=== PATIENT | female | born 1960 | race Caucasian/White ===

== ENCOUNTER 2016-12-25 17:08 | Observation (INO) | payer MEDICAID, OTHER ==
[2016-12-25] MEDS ORDERED: Sodium Chloride 0.9% 2.5 ML Syringe FLUSH PRN (17:43)
[2016-12-25] MEDS ORDERED: Sodium Chloride 0.9% 10 ML Syringe FLUSH PRN (17:43)
--- NOTE | 2016-12-25 17:50 | EDM.PDOC ---
<Rocío Terry - Last Filed: 12/25/16 18:39> ED HPI GENERAL MEDICAL PROBLEM - General Chief Complaint: Respiratory Problem Stated Complaint: SORE THROAT Time Seen by Provider: 12/25/16 17:31 - History of Present Illness INITIAL COMMENTS - FREE TEXT/NARRATIVE: HISTORY AND PHYSICAL: History of present illness: The patient is a 56-year-old female with a history of hypertension kidney damage with only one functioning kidney and a craniotomy in April 2016 and July 2016 for aneurysms and subsequent seizure disorder who presents with daughter complains of painful swallowing difficulty swallowing and swollen anterior neck with shortness of breath that started yesterday. The patient has not had a fever and has had a cough productive of some phlegm. She doesn't have chest pain or abdominal pain no vomiting or diarrhea but she does state that she feels like she is gagging more often due to the difficulty with her swallowing. She has no headache or neck pain posteriorly but she does have anterior neck pain due to the swelling. She has no extremity complaints no weakness and no dizziness. Patient is compliant with her medications. The patient does not live here and she lives in [place] where all her care providers are but is here due to the family business with her daughter. The patient is able to drink water but feels like she has swelling of her secretions and difficulty with that swallow. There is no discomfort or issues with taking a deep breath in her chest she feels like she has issues with the upper airway. With her craniotomies in the past she has had a trach but has had no problems as a result of that scarring. Review of systems: As per history of present illness and below otherwise all systems reviewed and negative. Past medical history: As per history of present illness and as reviewed below otherwise noncontributory. Surgical history: As per history of present illness and as reviewed below otherwise noncontributory. Social history: No reported history of drug or alcohol abuse. Family history: As per history of present illness and as reviewed below otherwise noncontributory. Physical exam: Gen.: Well-developed well-nourished female who is nontoxic and speaks with slightly worse and muffled voice. She is nontoxic appearing and vital signs been noted by me. HEENT: Atraumatic, normocephalic, pupils reactive, negative for conjunctival pallor or scleral icterus, mucous membranes moist, throat clear, neck supple, nontender, trachea midline. There is a well-healed trach scar seen at the [place] of the neck. There is no evidence of any tongue edema lymphedema or mucosal or gum/tooth pain or swelling. She has visible swelling of the anterior neck which is circumferential and there is a small area that she remembers getting bitten by an insect on the right anterior neck which is nonfluctuant and not specifically swollen. There is some reddish discolored skin extending from this by across the anterior aspect of her neck but the swelling is bilateral and brawny appearing. The uvula is enlarged and hanging somewhat and bilateral posterior oropharyngeal areas have some edema but there is no asymmetry and there is no kissing of these crypts. Cervical adenopathy cannot be appreciated due to the swelling of the neck Lungs: Clear to auscultation with no worker breathing wheezing or stridor, breath sounds equal bilaterally, chest nontender. Heart: S1S2, regular rate and rhythm no overt murmurs Abdomen: Soft, nondistended, nontender. NABS Pelvis: Stable nontender. Genitourinary: Deferred. Rectal: Deferred. Extremities: Atraumatic, negative for cords or calf pain. Neurovascular unremarkable. Neuro: Awake, alert, oriented. Cranial nerves II through XII unremarkable. Cerebellum unremarkable. Motor and sensory unremarkable throughout. Exam nonfocal. Diagnostics: CBC CMP lactic acid chest x-ray CT scan of the soft tissue neck Therapeutics: IV O2 pulse ox I discussed with the patient and her daughter that she has only one functioning kidney and if she has had IV contrast in the past and she states that she has not had difficulties with that. She states that her one functioning kidney has good renal function. 190: Case was endorsed to Dr. Vicente to follow-up the chest x-ray and CT scan of the neck results and disposition the patient accordingly. Impression: Dysphasia/odontophagia, dyspnea Definitive disposition and diagnosis as appropriate pending reevaluation and review of above. Neck Pain Score (Numeric/FACES): 8 - Related Data Allergies Allergy/AdvReac Type Severity Reaction Status Date / Time atenolol Allergy Other Verified 12/25/16 19:20 Penicillins Allergy Cannot Verified 12/25/16 17:52 Remember Home Meds: Home Meds LORazepam 1 tab PO BID PRN 04/20/14 [History] Amitriptyline HCl 75 mg PO BEDTIME 12/25/16 [History] Docusate Sodium [Colace] 100 mg PO BID PRN 12/25/16 [History] Gabapentin [Neurontin] 600 mg PO QID 12/25/16 [History] Lisinopril 30 mg PO DAILY 12/25/16 [History] Rosuvastatin [Crestor] 10 mg PO BEDTIME 12/25/16 [History] amLODIPine Besylate [Amlodipine Besylate] 10 mg PO DAILY 12/25/16 [History] levETIRAcetam [Keppra] 500 mg PO BID 12/25/16 [History] Social & Family History - Tobacco Use Smoking Status *Q: Current Every Day Smoker Years of Tobacco use: 30 - Alcohol Use Days Per Week of Alcohol Use: 0 - Recreational Drug Use Recreational Drug Use: No ED ROS GENERAL - Review of Systems Review Of Systems: ROS reveals no pertinent complaints other than HPI. ED EXAM, GENERAL - Physical Exam Exam: See Below (See dictation) Course - Vital Signs Last Recorded V/S: Last Vital Signs Temp 36.8 C 12/25/16 17:48 Pulse 80 12/25/16 17:48 Resp 20 12/25/16 17:48 BP 157/95 H 12/25/16 17:48 Pulse Ox 100 12/25/16 17:48 - Orders/Labs/Meds Orders: Active Orders 24 hr Category Date Time Status Pulse Oximetry [RC] ASDIRECTED Care 12/25/16 17:43 Active Chest 2V [CR] Stat Exams 12/25/16 17:43 Taken Soft Tissue Neck w Cont [CT] Stat Exams 12/25/16 17:43 Taken Clindamycin Phosphate [Cleocin] 300 mg Med 12/25/16 20:23 Active Sodium Chloride 0.9% [Normal Saline] 50 ml IV ONETIME Sodium Chloride 0.9% [Saline Flush] Med 12/25/16 17:43 Active 10 ml FLUSH ASDIRECTED PRN Sodium Chloride 0.9% [Saline Flush] Med 12/25/16 17:43 Active 2.5 ml FLUSH ASDIRECTED PRN Saline Lock Insert [OM.PC] Stat Oth 12/25/16 17:43 Ordered Medication Orders Clindamycin Phosphate 300 mg/ (Sodium Chloride) 52 mls @ 100 mls/hr IV ONETIME ONE Stop: 12/25/16 20:54 Sodium Chloride (Saline Flush) 10 ml FLUSH ASDIRECTED PRN PRN Reason: Keep Vein Open Last Admin: 12/25/16 18:06 Dose: 10 ml Sodium Chloride (Saline Flush) 2.5 ml FLUSH ASDIRECTED PRN PRN Reason: Keep Vein Open Last Admin: 12/25/16 19:19 Dose: 2.5 ml Labs: Laboratory Tests 12/25/16 12/25/16 12/25/16 Range/Units 17:49 17:49 17:49 WBC 8.56 (4.0-11.0) K/uL RBC 4.11 L (4.30-5.90) M/uL Hgb 12.6 (12.0-16.0) g/dL Hct 38.3 (36.0-46.0) % MCV 93.2 (80.0-98.0) fL MCH 30.7 (27.0-32.0) pg MCHC 32.9 (31.0-37.0) g/dL RDW Std Deviation 50.0 (28.0-62.0) fl RDW Coeff of Yessenia 15 (11.0-15.0) % Plt Count 252 (150-400) K/uL MPV 9.30 (7.40-12.00) fL Neut % (Auto) 47.4 L (48.0-80.0) % Lymph % (Auto) 42.2 H (16.0-40.0) % [place] % (Auto) 6.9 (0.0-15.0) % Eos % (Auto) 3.0 (0.0-7.0) % Baso % (Auto) 0.5 (0.0-1.5) % Neut # (Auto) 4.1 (1.4-5.7) K/uL Lymph # (Auto) 3.6 H (0.6-2.4) K/uL [place] # (Auto) 0.6 (0.0-0.8) K/uL Eos # (Auto) 0.3 (0.0-0.7) K/uL Baso # (Auto) 0.0 (0.0-0.1) K/uL Nucleated RBC % 0.0 /100WBC Nucleated RBCs # 0 K/uL Lactate 0.5 (0.20-2.00) mmol/L Sodium 138 (136-146) mmol/L Potassium 3.8 (3.5-5.1) mmol/L Chloride 105 (98-110) mmol/L Carbon Dioxide 23 (21-31) mmol/L BUN 15 (6.0-23.0) mg/dL Creatinine 1.3 (0.6-1.5) mg/dL Est Cr Clr Drug Dosing 44.16 mL/min Estimated GFR (MDRD) 42.1 ml/min Glucose 82 (60-110) mg/dL Calcium 9.4 (8.8-10.8) mg/dL Total Bilirubin 0.4 (0.1-1.5) mg/dL AST 15 (5-40) IU/L ALT 15 (8-54) IU/L Alkaline Phosphatase 79 (40-150) Total Protein 7.8 (6.0-8.0) g/dL Albumin 4.5 (3.5-5.0) g/dL Globulin 3.3 (2.0-3.5) g/dL Albumin/Globulin Ratio 1.4 (1.3-2.8) Meds: Medications Generic Name Dose Route Start Last Admin Trade Name Freq PRN Reason Stop Dose Admin Clindamycin Phosphate 300 mg/ 52 mls @ 100 mls/hr 12/25/16 20:23 Sodium Chloride IV 12/25/16 20:54 ONETIME ONE Sodium Chloride 10 ml 12/25/16 17:43 12/25/16 18:06 Saline Flush FLUSH 10 ml ASDIRECTED PRN Administration Keep Vein Open Sodium Chloride 2.5 ml 12/25/16 17:43 12/25/16 19:19 Saline Flush FLUSH 2.5 ml ASDIRECTED PRN Administration Keep Vein Open Discontinued Medications Generic Name Dose Route Start Last Admin Trade Name Freq PRN Reason Stop Dose Admin Sodium Chloride 1,000 mls @ 999 mls/hr 12/25/16 18:44 12/25/16 19:19 Normal Saline IV 12/25/16 19:44 999 mls/hr STAT ONE Administration Iopamidol 50 ml 12/25/16 19:12 12/25/16 19:14 Isovue-300 (61%) IVPUSH 12/25/16 19:13 50 ml ONETIME STA Administration Methylprednisolone Sodium Succinate 125 mg 12/25/16 20:27 Solu-Medrol IVPUSH 12/25/16 20:28 ONETIME ONE Morphine Sulfate 2 mg 12/25/16 19:56 12/25/16 20:24 Morphine IV 12/25/16 19:57 2 mg ONETIME ONE Administration Departure - Departure Disposition: Admitted As Inpatient 64 Condition: Good Clinical Impression: Edema - Discharge Information Referrals: PCP,None [Primary Care Provider] - Forms: ED Department Discharge - My Orders Last 24 Hours: My Active Orders 12/25/16 20:23 Clindamycin Phosphate [Cleocin] 300 mg Sodium Chloride 0.9% [Normal Saline] 50 ml IV ONETIME - Assessment/Plan Last 24 Hours: My Active Orders 12/25/16 20:23 Clindamycin Phosphate [Cleocin] 300 mg Sodium Chloride 0.9% [Normal Saline] 50 ml IV ONETIME <Hernando Larios - Last Filed: 12/25/16 20:32> ED HPI GENERAL MEDICAL PROBLEM - History of Present Illness INITIAL COMMENTS - FREE TEXT/NARRATIVE: I've seen and discussed with the patient above findings and CT results and agree with the above H&P assessment We have decided air on the side of caution of provided Cleocin 300 mg IV as well as Solu-Medrol 125 mg IV, morphine 2 mg for discomfort Assessment Enlarged lymph nodes Edema from pyriform sinus extending inferiorly to retropharyngeal space No abscess formation at this time Plan Cleocin 300 mg IV Solu-Medrol 125 mg IV Morphine 2 mg IV Patient discussed in detail with Bhavesh Flowers and we will admit for observation and probable ENT consult in the morning Patient is in no distress at this time Departure - Departure Time of Disposition: 20:31 Condition: Fair
[2016-12-25] MEDS ORDERED: Sodium Chloride 0.9% 1,000 ML IV ONE (18:44)
[2016-12-25] MEDS ORDERED: Iopamidol 612 MG/ML 50 ML SDV IVPUSH STA (19:12)
[2016-12-25] MEDS ORDERED: Morphine 10 MG/ML Syringe IV ONE (19:56)
[2016-12-25] MEDS ORDERED: methylPREDNISolone Sodium Succinate 125 MG/2 ML SDV IVPUSH ONE (20:27)
[2016-12-25] MEDS ORDERED: Clindamycin Phosphate in D5W 0 ML IV ONE (21:00)
[2016-12-25] MEDS ORDERED: Clindamycin Phosphate in D5W 50 ML IV ONE (21:01)
[2016-12-25] MEDS ORDERED: Clindamycin Phosphate in D5W 300 MG in Premix Bag 1 BAG IV ONE ×2 (21:04)
[2016-12-25] MEDS ORDERED: Ibuprofen 400 MG Tab PO PRN (23:58)
[2016-12-25] MEDS ORDERED: Ondansetron 4 MG/2 ML SDV IVPUSH PRN (23:58)
[2016-12-25] MEDS ORDERED: oxyCODONE 5 MG Tab PO PRN (23:58)
[2016-12-25] MEDS ORDERED: Acetaminophen 325 MG Tab PO PRN (23:58)
--- NOTE | 2016-12-26 00:07 | PCM.HP ---
H&P History of Present Illness - History of Present Illness Initial Comments - Free Text/Narative: 56 yo female who presents with one day history of sore throat. She reports sinus congestion with post nasal drip and cough. She reported a sore throat with some difficulty swallowing but found warm liquids soothing. The glands in her neck felt swollen and firm. She was seen in the ED and CT neck reported mucosal thickening seen within the anterior right ethmoid air cells and sphenoid sinuses and edema seen in the periform sinuses extending inferiorly the retropharyngeal space. No mass or fluid collection seen. She was given IV clindamycin and solumedrol in the ED. Neck Pain Score (Numeric/FACES): 8 Throat Pain Score (Numeric/FACES): 4 - Related Data Allergies/Adverse Reactions: Allergies Allergy/AdvReac Type Severity Reaction Status Date / Time Penicillins Allergy Cannot Verified 12/25/16 17:52 Remember Sulfa (Sulfonamide Allergy Nausea and Verified 12/25/16 22:48 Antibiotics) Vomiting Home Medications: Home Meds LORazepam 1 tab PO BID PRN 04/20/14 [History] Amitriptyline HCl 75 mg PO BEDTIME 12/25/16 [History] Docusate Sodium [Colace] 100 mg PO BID PRN 12/25/16 [History] Gabapentin [Neurontin] 600 mg PO QID 12/25/16 [History] Lisinopril 30 mg PO DAILY 12/25/16 [History] Rosuvastatin [Crestor] 10 mg PO DAILY 12/25/16 [History] amLODIPine Besylate [Amlodipine Besylate] 10 mg PO DAILY 12/25/16 [History] levETIRAcetam [Keppra] 500 mg PO BID 12/25/16 [History] Clindamycin Hcl [IMW: Clindamycin HCl] 300 mg PO Q8H #27 cap 12/26/16 [Rx] Past Medical History Cardiovascular History: Reports: Afib, High Cholesterol, Hypertension Respiratory History: Reports: Intubation, Previous Gastrointestinal History: Reports: Cholelithiasis, Other (See Below) Genitourinary History: Reports: Other (See Below) Other Genitourinary History: only one kidney functioning [employer] History: Reports: None Neurological History: Reports: Cerebral Aneurysms Psychiatric History: Reports: None Endocrine/Metabolic History: Reports: None Hematologic History: Reports: None Immunologic History: Reports: None Oncologic (Cancer) History: Reports: None Dermatologic History: Reports: None - Infectious Disease History Infectious Disease History: Reports: None - Past Surgical History Head Surgeries/Procedures: Reports: Craniotomy HEENT Surgical History: Reports: Tonsillectomy Respiratory Surgical History: Reports: Tracheostomy GI Surgical History: Reports: Appendectomy, Cholecystectomy Other GI Surgeries/Procedures: peg tube Female Surgical History: Reports: Section Musculoskeletal Surgical History: Reports: Arthroscopic Knee, ORIF, Other (See Below) Other Musculoskeletal Surgeries/Procedures:: left ankle Social & Family History - Family History HEENT: Reports: None Cardiac: Reports: Heart Valve Replacement, [place] Respiratory: Reports: None GI: Reports: None : Reports: None Musculoskeletal: Reports: Arthritis Neurological: Reports: None Psychiatric: Reports: None Endocrine/Metabolic: Reports: Diabetes, type II Hematologic: Reports: B12 Deficiency Immunologic: Reports: None Dermatologic: Reports: None Oncologic: Reports: Hodgkin's Lymphoma, Other (See Below) Other Oncologic Family History: throat - Tobacco Use Smoking Status *Q: Current Every Day Smoker Years of Tobacco use: 40 Packs/Tins Daily: 4 Second Hand Smoke Exposure: No - Caffeine Use Caffeine Use: Reports: Coffee, Soda - Alcohol Use Days Per Week of Alcohol Use: 0 - Recreational Drug Use Recreational Drug Use: No H&P Review of Systems - Review of Systems: Review Of Systems: ROS reveals no pertinent complaints other than HPI. Exam - Exam Exam: See Below - Vital Signs Vital Signs: Last Vital Signs Temp 36.4 C 12/25/16 21:46 Pulse 82 12/25/16 21:50 Resp 18 12/25/16 21:50 BP 157/83 H 12/25/16 22:15 Pulse Ox 98 12/25/16 21:50 Weight: 88.587 kg - Exam General: Alert, Oriented HEENT: Mucosa Moist & [place], Other (posterior pharynx erythematous) Neck: Supple, Trachea Midline, Full Range of Motion. No: Lymphadenopathy, JVD Lungs: Clear to Auscultation, Normal Respiratory Effort Cardiovascular: Regular Rate, Regular Rhythm Abdomen: Normal Bowel Sounds, Soft Extremities: Normal Inspection - Patient Data Result Diagrams: 12/26/16 04:20 12/26/16 04:20 *Q Meaningful Use (ADM) - VTE *Q VTE Criteria *Q: - Stroke *Q Stroke Criteria *Q: - AMI *Q AMI Criteria *Q: Problem List Initiated/Reviewed/Updated: Yes Orders Last 24hrs: Active Orders 24 hr Category Date Time Status Antiembolic Devices [RC] PER UNIT ROUTINE Care 12/25/16 23:59 Ordered Oxygen Therapy [RC] PRN Care 12/25/16 23:58 Ordered Pulse Oximetry [RC] CONTINUOUS Care 12/25/16 23:58 Ordered Up ad Sonam [RC] ASDIRECTED Care 12/25/16 23:58 Ordered VTE/DVT Education [RC] PER UNIT ROUTINE Care 12/25/16 23:58 Ordered Vital Signs [RC] Q4H Care 12/25/16 23:58 Ordered Mechanical Soft Diet [DIET] Diet 12/25/16 Breakfast Ordered BASIC METABOLIC PANEL,BMP [CHEM] AM Lab 12/26/16 05:11 Ordered CBC WITH AUTO DIFF [HEME] AM Lab 12/26/16 05:11 Ordered STREP SCRN A RAPID W CULT CONF [RM] Routine Lab 12/25/16 23:08 Uncollected Acetaminophen [Tylenol] Med 12/25/16 23:58 Ordered 650 mg PO Q4H PRN Clindamycin Phosphate [Cleocin] 450 mg Med 12/26/16 03:00 Ordered Sodium Chloride 0.9% [Normal Saline] 50 ml IV Q6H Gabapentin Med 12/26/16 00:00 Ordered 600 mg PO QID Ibuprofen [Motrin] Med 12/25/16 23:58 Ordered 400 mg PO Q6H PRN Ondansetron [Zofran] Med 12/25/16 23:58 Ordered 4 mg IVPUSH Q4H PRN levETIRAcetam [Keppra] Med 12/26/16 09:00 Ordered 500 mg PO BID oxyCODONE Med 12/25/16 23:58 Ordered 5 mg PO Q4H PRN Sequential Compression Device [OM.PC] Per Unit Routine Oth 12/25/16 23:58 Ordered Resuscitation Status Routine Resus Stat 12/25/16 23:58 Ordered Medication Orders Acetaminophen (Tylenol) 650 mg PO Q4H PRN PRN Reason: Pain (Mild 1-3)/fever Sodium Chloride (Saline Flush) 10 ml FLUSH ASDIRECTED PRN PRN Reason: Keep Vein Open Last Admin: 06/19/17 18:06 Dose: 10 ml Sodium Chloride (Saline Flush) 2.5 ml FLUSH ASDIRECTED PRN PRN Reason: Keep Vein Open Last Admin: 12/25/16 19:19 Dose: 2.5 ml Assessment/Plan Comment:: 56 yo female admitted with acute sinusis and pharyngitis. Will continue clindamycin
[2016-12-26] MEDS: Gabapentin 300 MG Cap PO SCH ×4 (00:26→19:23)
[2016-12-26] MEDS: Clindamycin Phosphate in D5W 300 MG in Premix Bag 1 BAG IV SCH ×6 (03:23→15:03)
--- NOTE | 2016-12-26 08:00 | CR ---
EXAM DATE: 12/25/16 PATIENT'S AGE: 56 Patient: LYUBOV REED Facility: [place], [place] Site . Site : [id number] Study: XRay Chest [id number]/19/2017 7:12:02 PM Ordering Physician: Mara Alford Final Report: INDICATION: Chest pain; shortness of breath. Comparison: None. Technique: Two-view chest. Findings: Normal size cardiac silhouette. Clear lung del cid without evidence of acute pneumonic infiltrates or CHF. No pneumothorax or pleural effusion. Levo scoliosis lower thoracic spine. Impression: Negative chest. Dictated by Maxwell Bueno MD @ Dec 25 2016 7:12PM (Electronic Signature) Report Signed by Proxy. MTDD
[2016-12-26] MEDS ORDERED: levETIRAcetam 500 MG Tab PO SCH (09:00)
--- NOTE | 2016-12-26 09:43 | PCM.PN ---
- General Info Date of Service: 12/26/16 Admission Dx/Problem (Free Text): Feeling much improved today. Able to swallow without difficulty and feels swelling in neck has improved dramatically. Eating well, no chest pain, palpitations, or sob. Slept well overnight. No complaints. Functional Status: Reports: pain controlled, tolerating diet, ambulating - Review of Systems General: Denies: Fever, Weakness, Fatigue HEENT: Denies: contact lenses, headaches, visual changes Pulmonary: Denies: shortness of breath, hemoptysis, wheezing Cardiovascular: Denies: Chest Pain, Palpitations, Edema Gastrointestinal: Denies: Abdominal pain, Diarrhea, Nausea, Vomiting Genitourinary: Denies: dysuria, hematuria Musculoskeletal: Denies: neck pain, leg pain Skin: Denies: cyanosis Neurological: Denies: Confusion, Dizziness, Headache Psychiatric: Denies: confusion - Patient Data Vitals - most recent: Last Vital Signs Temp 36.2 C 12/26/16 08:36 Pulse 97 12/26/16 08:06 Resp 20 12/26/16 08:06 BP 158/95 H 12/26/16 08:06 Pulse Ox 97 12/26/16 08:06 Weight - most recent: 88.587 kg I&O - last 24 hours: Intake & Output 12/25/16 12/26/16 12/26/16 22:59 06:59 14:59 Intake Total 300 50 Output Total 1700 Balance -1400 50 Lab Results last 24 hrs: Laboratory Results - last 24 hr 12/26/16 12/26/16 Range/Units 04:20 04:20 WBC 4.66 (4.0-11.0) K/uL RBC 4.35 (4.30-5.90) M/uL Hgb 13.1 (12.0-16.0) g/dL Hct 40.8 (36.0-46.0) % MCV 93.8 (80.0-98.0) fL MCH 30.1 (27.0-32.0) pg MCHC 32.1 (31.0-37.0) g/dL RDW Std Deviation 49.4 (28.0-62.0) fl RDW Coeff of Yessenia 14 (11.0-15.0) % Plt Count 267 (150-400) K/uL MPV 9.70 (7.40-12.00) fL Neut % (Auto) 80.1 H (48.0-80.0) % Lymph % (Auto) 18.9 (16.0-40.0) % [place] % (Auto) 0.6 (0.0-15.0) % Eos % (Auto) 0.2 (0.0-7.0) % Baso % (Auto) 0.2 (0.0-1.5) % Neut # (Auto) 3.7 (1.4-5.7) K/uL Lymph # (Auto) 0.9 (0.6-2.4) K/uL [place] # (Auto) 0.0 (0.0-0.8) K/uL Eos # (Auto) 0.0 (0.0-0.7) K/uL Baso # (Auto) 0.0 (0.0-0.1) K/uL Nucleated RBC % 0.0 /100WBC Nucleated RBCs # 0 K/uL Sodium 142 (136-146) mmol/L Potassium 5.0 (3.5-5.1) mmol/L Chloride 109 (98-110) mmol/L Carbon Dioxide 23 (21-31) mmol/L BUN 12 (6.0-23.0) mg/dL Creatinine 1.1 (0.6-1.5) mg/dL Est Cr Clr Drug Dosing 52.19 mL/min Estimated GFR (MDRD) 51.0 ml/min Glucose 168 H (60-110) mg/dL Calcium 9.1 (8.8-10.8) mg/dL Med Orders - Current: Current Medications Acetaminophen (Tylenol) 650 mg PO Q4H PRN PRN Reason: Pain (Mild 1-3)/fever Gabapentin (Neurontin) 600 mg PO QID [facility] Last Admin: 12/26/16 06:03 Dose: 600 mg Clindamycin Phosphate 300 mg/ (Premix) 50 mls @ 150 mls/hr IV Q6H [facility] Last Admin: 12/26/16 08:18 Dose: 150 mls/hr Ibuprofen (Motrin) 400 mg PO Q6H PRN PRN Reason: Pain (mild 1-3) Levetiracetam (Keppra) 500 mg PO BID [facility] Last Admin: 12/26/16 08:18 Dose: 500 mg Ondansetron HCl (Zofran) 4 mg IVPUSH Q4H PRN PRN Reason: Nausea Oxycodone HCl (Oxycodone) 5 mg PO Q4H PRN PRN Reason: Pain (moderate 4-6) Sodium Chloride (Saline Flush) 10 ml FLUSH ASDIRECTED PRN PRN Reason: Keep Vein Open Last Admin: 12/25/16 18:06 Dose: 10 ml Sodium Chloride (Saline Flush) 2.5 ml FLUSH ASDIRECTED PRN PRN Reason: Keep Vein Open Last Admin: 12/25/16 19:19 Dose: 2.5 ml Discontinued Medications Sodium Chloride (Normal Saline) 1,000 mls @ 999 mls/hr IV STAT ONE Stop: 12/25/16 19:44 Last Admin: 12/25/16 19:19 Dose: 999 mls/hr Clindamycin Phosphate 300 mg/ (Sodium Chloride) 52 mls @ 100 mls/hr IV ONETIME ONE Stop: 12/25/16 20:54 Last Admin: 12/25/16 21:15 Dose: Not Given Clindamycin Phosphate (Cleocin In D5w) Confirm Administered Dose 50 mls @ as directed IV .STK-MED ONE Stop: 12/25/16 21:01 Last Admin: 12/25/16 21:16 Dose: Not Given Clindamycin Phosphate 300 mg/ (Premix) 50 mls @ 150 mls/hr IV ONETIME ONE Stop: 12/25/16 21:23 Last Admin: 12/25/16 21:14 Dose: 150 mls/hr Clindamycin Phosphate (Cleocin In D5w) Confirm Administered Dose 50 mls @ as directed IV .STK-MED ONE Stop: 12/25/16 21:02 Last Admin: 12/25/16 21:16 Dose: Not Given Clindamycin Phosphate 450 mg/ (Sodium Chloride) 53 mls @ 100 mls/hr IV Q6H [facility] Last Admin: 12/26/16 04:12 Dose: Not Given Iopamidol (Isovue-300 (61%)) 50 ml IVPUSH ONETIME STA Stop: 12/25/16 19:13 Last Admin: 12/25/16 19:14 Dose: 50 ml Methylprednisolone Sodium Succinate (Solu-Medrol) 125 mg IVPUSH ONETIME ONE Stop: 12/25/16 20:28 Last Admin: 12/25/16 21:16 Dose: 125 mg Morphine Sulfate (Morphine) 2 mg IV ONETIME ONE Stop: 12/25/16 19:57 Last Admin: 12/25/16 20:24 Dose: 2 mg - Exam Quality Assessment: DVT prophylaxis General: alert, oriented, cooperative, no acute distress HEENT: Pupils equal, Pupils reactive, EOMI, Mucous membr. moist/pink Neck: supple, other (mild edema to anterior neck with some erythema) Lungs: Clear to auscultation, Normal respiratory effort Cardiovascular: Regular Rate, Regular Rhythm Abdomen: bowel sounds present, soft, no tenderness, no distension Back Exam: Normal Inspection Extremities: no edema, normal pulses, no tenderness/swelling Peripheral Pulses: 2+: Radial (L), Radial (R), Posterior Tibial (L), Posterior Tibial (R), Dorsalis Pedis (L), Dorsalis Pedis (R) Skin: warm, dry, intact Neurological: no new focal deficit Psy/Mental Status: alert, normal affect, normal mood - Problem List & Annotations (1) Sinusitis SNOMED Code(s): 01798972 Code(s): J32.9 - CHRONIC SINUSITIS, UNSPECIFIED Status: Acute Priority: High Current Visit: Yes Qualifiers: Sinusitis location: ethmoidal Chronicity: acute Recurrence: not specified as recurrent Qualified Code(s): J01.20 - Acute ethmoidal sinusitis, unspecified (2) Pharyngitis SNOMED Code(s): 604641880 Code(s): J02.9 - ACUTE PHARYNGITIS, UNSPECIFIED Status: Acute Priority: High Current Visit: Yes Qualifiers: Pharyngitis/tonsillitis etiology: unspecified etiology Qualified Code(s): J02.9 - Acute pharyngitis, unspecified (3) Edema SNOMED Code(s): 786266954, 969421939 Code(s): R60.9 - EDEMA, UNSPECIFIED Status: Acute Priority: High Current Visit: Yes Qualifiers: Edema type: unspecified Qualified Code(s): R60.9 - Edema, unspecified - Problem List Review Problem List Initiated/Reviewed/Updated: Yes - My Orders Last 24 Hours: My Active Orders 12/26/16 08:50 Consult to Physician [CONS] Routine 12/26/16 08:51 Notify Provider Consults [RC] ASDIRECTED - Plan Plan:: 56 yo female admitted 12/25/16 for acute sinusitis and pharyngitis with pmh of htn, seizure disorder, and one function kidney. Acute sinusitis/pharyngitis: Symptoms improved with clindamycin. [place] and rapid strep neg. Culture pending. No airway issues this am. Have consulted Dr. Vo ENT who will see around noon. Will continue Clindamycin. Unknown etiology at this time. Patient remains afebrile with no leukocytosis. Htn: Blood pressure elevated this am will restart home meds and monitor. Seizure disorder: Acquired after craniotomy in 2015 for aneurysms. Currently controlled. Will cont. home Keppra. 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 Kidney function during admission shows some chronic renal insufficiency but otherwise doing well. Will cont. to monitor. VTE: SCD, up and ambulating. Dispo: 1-2 days. After ENT has seen patient
[2016-12-26] MEDS ORDERED: Lisinopril 10 MG Tab PO SCH (10:45)
[2016-12-26] MEDS ORDERED: amLODIPine 5 MG Tab PO SCH (10:45)
--- NOTE | 2016-12-26 14:45 | PCM.CONS ---
H&P History of Present Illness - General Date of Service: 12/26/16 Admit Problem/Dx: Feeling much improved today. Able to swallow without difficulty and feels swelling in neck has improved dramatically. Eating well, no chest pain, palpitations, or sob. Slept well overnight. No complaints. - History of Present Illness Initial Comments - Free Text/Narative: Neck swelling Odynophagia and shortness of breath - 1 d Developed sudden onset neck swelling yesterday over a period of hours; neck was hard and overlying skin red Denies any precipitating event - no trauma / URI/ change in diet / medication/ surgical treatment Does say - had been having a post nasal drip She did notice a ? target rash on right side of her neck and wonders if she got a bug bite NO other nasal symptoms Also had Odynophagia and dysphagia SOB + ; no stridor - felt her throat was closing up Voice - husky Came to ER - was given steroid and commenced on antibiotics - significantly improved today Denies any significant sy when seen by me Says she has lost weight and appetite since her brain surgery Neck Pain Score (Numeric/FACES): 8 Throat Pain Score (Numeric/FACES): 4 - Related Data Allergies/Adverse Reactions: Allergies Allergy/AdvReac Type Severity Reaction Status Date / Time Penicillins Allergy Cannot Verified 12/25/16 17:52 Remember Sulfa (Sulfonamide Allergy Nausea and Verified 12/25/16 22:48 Antibiotics) Vomiting Home Medications: Home Meds RX: LORazepam 1 tab PO BID PRN 04/20/14 [History] Docusate Sodium [Colace] 100 mg PO BID PRN 12/25/16 [History] RX: Amitriptyline HCl 75 mg PO BEDTIME 12/25/16 [History] RX: Gabapentin [Neurontin] 600 mg PO QID 12/25/16 [History] RX: Lisinopril 30 mg PO DAILY 12/25/16 [History] Rosuvastatin [Crestor] 10 mg PO DAILY 12/25/16 [History] amLODIPine Besylate [Amlodipine Besylate] 10 mg PO DAILY 12/25/16 [History] levETIRAcetam [Keppra] 500 mg PO BID 12/25/16 [History] Past Medical History Cardiovascular History: Reports: Afib, High Cholesterol, Hypertension Respiratory History: Reports: Intubation, Previous Gastrointestinal History: Reports: Cholelithiasis, Other (See Below) Genitourinary History: Reports: Other (See Below) Other Genitourinary History: only one kidney functioning GROUP DIRECTOR History: Reports: None Neurological History: Reports: Cerebral Aneurysms Psychiatric History: Reports: None Endocrine/Metabolic History: Reports: None Hematologic History: Reports: None Immunologic History: Reports: None Oncologic (Cancer) History: Reports: None Dermatologic History: Reports: None - Infectious Disease History Infectious Disease History: Reports: None - Past Surgical History Head Surgeries/Procedures: Reports: Craniotomy HEENT Surgical History: Reports: Tonsillectomy Respiratory Surgical History: Reports: Tracheostomy GI Surgical History: Reports: Appendectomy, Cholecystectomy Other GI Surgeries/Procedures: peg tube Female Surgical History: Reports: Section Musculoskeletal Surgical History: Reports: Arthroscopic Knee, ORIF, Other (See Below) Other Musculoskeletal Surgeries/Procedures:: left ankle Social & Family History - Family History HEENT: Reports: None Cardiac: Reports: Heart Valve Replacement, MA Respiratory: Reports: None GI: Reports: None : Reports: None Musculoskeletal: Reports: Arthritis Neurological: Reports: None Psychiatric: Reports: None Endocrine/Metabolic: Reports: Diabetes, type II Hematologic: Reports: B12 Deficiency Immunologic: Reports: None Dermatologic: Reports: None Oncologic: Reports: Hodgkin's Lymphoma, Other (See Below) Other Oncologic Family History: throat - Tobacco Use Smoking Status *Q: Current Every Day Smoker Years of Tobacco use: 40 Packs/Tins Daily: 4 Second Hand Smoke Exposure: No - Caffeine Use Caffeine Use: Reports: Coffee, Soda - Alcohol Use Days Per Week of Alcohol Use: 0 - Recreational Drug Use Recreational Drug Use: No H&P Review of Systems - Review of Systems: Review Of Systems: See Below General: Reports: No Symptoms HEENT: Reports: Sore Throat Pulmonary: Reports: No Symptoms Cardiovascular: Reports: No Symptoms Gastrointestinal: Reports: No Symptoms Genitourinary: Reports: No Symptoms Musculoskeletal: Reports: No Symptoms Skin: Reports: Other Psychiatric: Reports: No Symptoms Neurological: Reports: No Symptoms Exam - Exam Exam: See Below - Vital Signs Vital Signs: Last Vital Signs Temp 36.2 C 12/26/16 08:36 Pulse 97 12/26/16 08:06 Resp 20 12/26/16 08:06 BP 184/103 H 12/26/16 11:13 Pulse Ox 97 12/26/16 08:06 Weight: 88.587 kg - Exam General: Alert, Oriented, Cooperative Neck: Supple, Trachea Midline, Other Lungs: Clear to Auscultation, Normal Respiratory Effort Cardiovascular: Regular Rate, Regular Rhythm Extremities: Normal Inspection Skin: Warm, Dry, Intact, Other Neurological: Cranial Nerves Intact Neuro Extensive - Mental Status: Alert, Oriented x3, Normal Mood/Affect, Normal Cognition Psychiatric: Alert, Normal Affect, Normal Mood Physical Exam Comments:: Oral cavity / Oroph - partial dentures+; s/p tonsillectomy; thickened lat pharyngeal bands Nose - R DNS Ears - n Neck - minimal skin hyperemia frederick neck; healed scar from prev tracheostomy +; no swelling / induration / no LAP - Patient Data Lab Results Last 24 hrs: Laboratory Results - last 24 hr 12/26/16 12/26/16 Range/Units 04:20 04:20 WBC 4.66 (4.0-11.0) K/uL RBC 4.35 (4.30-5.90) M/uL Hgb 13.1 (12.0-16.0) g/dL Hct 40.8 (36.0-46.0) % MCV 93.8 (80.0-98.0) fL MCH 30.1 (27.0-32.0) pg MCHC 32.1 (31.0-37.0) g/dL RDW Std Deviation 49.4 (28.0-62.0) fl RDW Coeff of Yessenia 14 (11.0-15.0) % Plt Count 267 (150-400) K/uL MPV 9.70 (7.40-12.00) fL Neut % (Auto) 80.1 H (48.0-80.0) % Lymph % (Auto) 18.9 (16.0-40.0) % [place] % (Auto) 0.6 (0.0-15.0) % Eos % (Auto) 0.2 (0.0-7.0) % Baso % (Auto) 0.2 (0.0-1.5) % Neut # (Auto) 3.7 (1.4-5.7) K/uL Lymph # (Auto) 0.9 (0.6-2.4) K/uL [place] # (Auto) 0.0 (0.0-0.8) K/uL Eos # (Auto) 0.0 (0.0-0.7) K/uL Baso # (Auto) 0.0 (0.0-0.1) K/uL Nucleated RBC % 0.0 /100WBC Nucleated RBCs # 0 K/uL Sodium 142 (136-146) mmol/L Potassium 5.0 (3.5-5.1) mmol/L Chloride 109 (98-110) mmol/L Carbon Dioxide 23 (21-31) mmol/L BUN 12 (6.0-23.0) mg/dL Creatinine 1.1 (0.6-1.5) mg/dL Est Cr Clr Drug Dosing 52.19 mL/min Estimated GFR (MDRD) 51.0 ml/min Glucose 168 H (60-110) mg/dL Calcium 9.1 (8.8-10.8) mg/dL Result Diagrams: 12/26/16 04:20 12/26/16 04:20 Imaging Impressions Last 24 hrs: CT neck with contrast reviewed by me Consult PN Assessment/Plan Procedures: Procedures ASSAY THYROID STIM HORMONE (04/20/14) COMPLETE CBC W/AUTO DIFF WBC (04/20/14) COMPREHEN METABOLIC PANEL (04/20/14) ELECTROCARDIOGRAM TRACING (04/20/14) EMERGENCY DEPT VISIT (11/04/14) EMERGENCY DEPT VISIT (04/20/14) RICKETTSIA ANTIBODY (11/04/14) ROUTINE VENIPUNCTURE (04/20/14) URINALYSIS AUTO W/O SCOPE (04/20/14) (1) Swollen neck SNOMED Code(s): 218275849 Code(s): R22.1 - LOCALIZED SWELLING, MASS AND LUMP, NECK Current Visit: Yes Problem List Initiated/Reviewed/Updated: Yes Plan: - For naso laryngoscopy bedside - Per clinical exam and symptoms -now resolved, she likely developed either angioedema / reaction to insect bite - No active ENT intervention at present - If symptoms recur - consider C1 esterase inhibitor assay / complement assay - Discussed in detail with the patient - Can be discharged from ENT perspective - Follow up with ENT PRN - Agrees and understands - Thanks for the referral
[2016-12-26 15:08] VITALS: BP 137/86
--- NOTE | 2016-12-26 16:32 | PCM.PRNOTE ---
- Free Text/Narrative Note: Nasal laryngoscopy Verbal consent was obtained. Risks and benefits were discussed. The flexible rhino laryngoscope was introduced through the left nasal cavity. She tolerated the procedure well. Findings - Supraglottis- Epiglottis - normal AE folds - normal Arytenoids - normal Glottis - Vocal cords - mobile Hypopharynx - Pyriform fossae - normal Retro arytenoid - normal Vallecula - normal
--- NOTE | 2016-12-26 17:31 | PCM.DCSUM1 ---
[id number] Initial Comments: 56-year-old female admitted 12/25/26 for acute sinusitis and pharyngitis with past medical history of hypertension, seizure disorder, and one functional kidney as per patient. Brief History: 56 yo female who presented with one day history of sore throat. She reported sinus congestion with post nasal drip and cough. She reported a sore throat with some difficulty swallowing but found warm liquids soothing. The glands in her neck felt swollen and firm. She was seen in the ED and CT neck reported mucosal thickening seen within the anterior right ethmoid air cells and sphenoid sinuses and edema seen in the periform sinuses extending inferiorly the retropharyngeal space. No mass or fluid collection seen. She was given IV clindamycin and solumedrol in the ED. - Discharge Data Discharge Date: 12/26/16 Discharge Disposition: Home, Self-Care 01 Condition: Good - Discharge Diagnosis/Problem(s) (1) Sinusitis SNOMED Code(s): 67227333 ICD Code: J32.9 - CHRONIC SINUSITIS, UNSPECIFIED Status: Acute Priority: High Qualifiers: Sinusitis location: ethmoidal Chronicity: acute Recurrence: not specified as recurrent Qualified Code(s): J01.20 - Acute ethmoidal sinusitis, unspecified (2) Pharyngitis SNOMED Code(s): 106334901 ICD Code: J02.9 - ACUTE PHARYNGITIS, UNSPECIFIED Status: Acute Priority: High Qualifiers: Pharyngitis/tonsillitis etiology: unspecified etiology Qualified Code(s): J02.9 - Acute pharyngitis, unspecified (3) Edema SNOMED Code(s): 563091988, 443633075 ICD Code: R60.9 - EDEMA, UNSPECIFIED Status: Acute Priority: High Qualifiers: Edema type: unspecified Qualified Code(s): R60.9 - Edema, unspecified - Patient Summary/Data Consults: Consultations 12/26/16 08:50 Consult to Physician [CONS] Routine Hospital Course: Patient was admitted for observation and continued on Clindamycin IV. On morning after admission patient had significant improvement. Anterior neck swelling had decreased and there was only mild erythema to the anterior surface. ENT was consulted and saw the patient and felt that she had likely developed either angioedema or some other reaction to a recent insect bite. She recommended that if symptoms recur to consider C1 esterase inhibitor assay / complement assay. Patient remained afebrile throughout her stay with no leukocytosis. She was discharged on 12/26/16 in good condition with a perscription for Clindamycin 300 mg q 8 hours for an additional 9 days for suspected pharyngitis. She was also scheduled for a follow-up appointment with a local physician in 1 week or sooner. - Patient Instructions Diet: Heart Healthy Diet Activity: Rest and Relax Today Driving: Do Not Drive Showering/Bathing: May Shower Notify Provider of: Fever, Increased Pain, Swelling and Redness, Drainage, Nausea and/or Vomiting Other/Special Instructions: Take antibiotics as prescribed. Follow-up with scheduled doctors appointment. Return to ED if any return of symptoms. - Discharge Plan Prescriptions/Med Rec: Clindamycin Hcl [IMW: Clindamycin HCl] 300 mg PO Q8H #27 cap Home Medications: Home Meds LORazepam 1 tab PO BID PRN 04/20/14 [History] Amitriptyline HCl 75 mg PO BEDTIME 12/25/16 [History] Docusate Sodium [Colace] 100 mg PO BID PRN 12/25/16 [History] Gabapentin [Neurontin] 600 mg PO QID 12/25/16 [History] Lisinopril 30 mg PO DAILY 12/25/16 [History] Rosuvastatin [Crestor] 10 mg PO DAILY 12/25/16 [History] amLODIPine Besylate [Amlodipine Besylate] 10 mg PO DAILY 12/25/16 [History] levETIRAcetam [Keppra] 500 mg PO BID 12/25/16 [History] Clindamycin Hcl [IMW: Clindamycin HCl] 300 mg PO Q8H #27 cap 12/26/16 [Rx] Patient Handouts: Pharyngitis, Sinusitis, Adult, [id number], Clindamycin capsules, Edema, [id number] Forms: ED Department Discharge Referrals: [facility] [Outside] PCP,None [Primary Care Provider] - - Discharge Summary/Plan Comment DC Time >30 min.: Yes Discharge Summary/Plan Comment: 56-year-old female admitted 12/25/26 for acute sinusitis and pharyngitis with past medical history of hypertension, seizure disorder, and one functional kidney as per patient. 56 yo female who presented with one day history of sore throat. She reported sinus congestion with post nasal drip and cough. She reported a sore throat with some difficulty swallowing but found warm liquids soothing. The glands in her neck felt swollen and firm. She was seen in the ED and CT neck reported mucosal thickening seen within the anterior right ethmoid air cells and sphenoid sinuses and edema seen in the periform sinuses extending inferiorly the retropharyngeal space. No mass or fluid collection seen. She was given IV clindamycin and solumedrol in the ED. Patient was admitted for observation and continued on Clindamycin IV. On morning after admission patient had significant improvement. Anterior neck swelling had decreased and there was only mild erythema to the anterior surface. ENT was consulted and saw the patient and felt that she had likely developed either angioedema or some other reaction to a recent insect bite. She recommended that if symptoms recur to consider C1 esterase inhibitor assay / complement assay. Patient remained afebrile throughout her stay with no leukocytosis. She was discharged on 12/26/16 in good condition with a perscription for Clindamycin 300 mg q 8 hours for an additional 9 days for suspected pharyngitis. She was also scheduled for a follow-up appointment with a local physician in 1 week or sooner. - Patient Data Vitals - Most Recent: Last Vital Signs Temp 36.4 C 12/26/16 15:08 Pulse 98 12/26/16 15:08 Resp 18 12/26/16 15:08 BP 137/86 12/26/16 15:08 Pulse Ox 92 L 12/26/16 15:08 Weight - Most Recent: 88.587 kg I&O - Last 24 hours: Intake & Output 12/26/16 12/26/16 12/26/16 06:59 14:59 22:59 Intake Total 028 63 8064 Output Total 1700 2450 Balance -1400 50 -284 Lab Results - Last 24 hrs: Laboratory Results - last 24 hr 12/26/16 12/26/16 Range/Units 04:20 04:20 WBC 4.66 (4.0-11.0) K/uL RBC 4.35 (4.30-5.90) M/uL Hgb 13.1 (12.0-16.0) g/dL Hct 40.8 (36.0-46.0) % MCV 93.8 (80.0-98.0) fL MCH 30.1 (27.0-32.0) pg MCHC 32.1 (31.0-37.0) g/dL RDW Std Deviation 49.4 (28.0-62.0) fl RDW Coeff of Yessenia 14 (11.0-15.0) % Plt Count 267 (150-400) K/uL MPV 9.70 (7.40-12.00) fL Neut % (Auto) 80.1 H (48.0-80.0) % Lymph % (Auto) 18.9 (16.0-40.0) % [place] % (Auto) 0.6 (0.0-15.0) % Eos % (Auto) 0.2 (0.0-7.0) % Baso % (Auto) 0.2 (0.0-1.5) % Neut # (Auto) 3.7 (1.4-5.7) K/uL Lymph # (Auto) 0.9 (0.6-2.4) K/uL [place] # (Auto) 0.0 (0.0-0.8) K/uL Eos # (Auto) 0.0 (0.0-0.7) K/uL Baso # (Auto) 0.0 (0.0-0.1) K/uL Nucleated RBC % 0.0 /100WBC Nucleated RBCs # 0 K/uL Sodium 142 (136-146) mmol/L Potassium 5.0 (3.5-5.1) mmol/L Chloride 109 (98-110) mmol/L Carbon Dioxide 23 (21-31) mmol/L BUN 12 (6.0-23.0) mg/dL Creatinine 1.1 (0.6-1.5) mg/dL Est Cr Clr Drug Dosing 52.19 mL/min Estimated GFR (MDRD) 51.0 ml/min Glucose 168 H (60-110) mg/dL Calcium 9.1 (8.8-10.8) mg/dL Med Orders - Current: Current Medications Acetaminophen (Tylenol) 650 mg PO Q4H PRN PRN Reason: Pain (Mild 1-3)/fever Amlodipine Besylate (Norvasc) 10 mg PO DAILY [facility] Last Admin: 12/26/16 11:13 Dose: 10 mg Gabapentin (Neurontin) 600 mg PO QID [facility] Last Admin: 12/26/16 11:13 Dose: 600 mg Clindamycin Phosphate 300 mg/ (Premix) 50 mls @ 150 mls/hr IV Q6H [facility] Last Admin: 12/26/16 15:03 Dose: 150 mls/hr Ibuprofen (Motrin) 400 mg PO Q6H PRN PRN Reason: Pain (mild 1-3) Levetiracetam (Keppra) 500 mg PO BID [facility] Last Admin: 12/26/16 08:18 Dose: 500 mg Lisinopril (Prinivil) 30 mg PO DAILY [facility] Last Admin: 12/26/16 11:13 Dose: 30 mg Ondansetron HCl (Zofran) 4 mg IVPUSH Q4H PRN PRN Reason: Nausea Oxycodone HCl (Oxycodone) 5 mg PO Q4H PRN PRN Reason: Pain (moderate 4-6) Sodium Chloride (Saline Flush) 10 ml FLUSH ASDIRECTED PRN PRN Reason: Keep Vein Open Last Admin: 12/25/16 18:06 Dose: 10 ml Sodium Chloride (Saline Flush) 2.5 ml FLUSH ASDIRECTED PRN PRN Reason: Keep Vein Open Last Admin: 12/25/16 19:19 Dose: 2.5 ml Discontinued Medications Sodium Chloride (Normal Saline) 1,000 mls @ 999 mls/hr IV STAT ONE Stop: 12/25/16 19:44 Last Admin: 12/25/16 19:19 Dose: 999 mls/hr Clindamycin Phosphate 300 mg/ (Sodium Chloride) 52 mls @ 100 mls/hr IV ONETIME ONE Stop: 12/25/16 20:54 Last Admin: 12/25/16 21:15 Dose: Not Given Clindamycin Phosphate (Cleocin In D5w) Confirm Administered Dose 50 mls @ as directed IV .STK-MED ONE Stop: 12/25/16 21:01 Last Admin: 12/25/16 21:16 Dose: Not Given Clindamycin Phosphate 300 mg/ (Premix) 50 mls @ 150 mls/hr IV ONETIME ONE Stop: 12/25/16 21:23 Last Admin: 12/25/16 21:14 Dose: 150 mls/hr Clindamycin Phosphate (Cleocin In D5w) Confirm Administered Dose 50 mls @ as directed IV .STK-MED ONE Stop: 12/25/16 21:02 Last Admin: 12/25/16 21:16 Dose: Not Given Clindamycin Phosphate 450 mg/ (Sodium Chloride) 53 mls @ 100 mls/hr IV Q6H [facility] Last Admin: 12/26/16 04:12 Dose: Not Given Iopamidol (Isovue-300 (61%)) 50 ml IVPUSH ONETIME STA Stop: 12/25/16 19:13 Last Admin: 12/25/16 19:14 Dose: 50 ml Methylprednisolone Sodium Succinate (Solu-Medrol) 125 mg IVPUSH ONETIME ONE Stop: 12/25/16 20:28 Last Admin: 12/25/16 21:16 Dose: 125 mg Morphine Sulfate (Morphine) 2 mg IV ONETIME ONE Stop: 12/25/16 19:57 Last Admin: 12/25/16 20:24 Dose: 2 mg *Q Meaningful Use (DIS) - VTE *Q VTE Criteria *Q: - Stroke *Q Stroke Criteria *Q: - AMI *Q AMI Criteria *Q: <Bhavesh Garner - Last Filed: 12/27/16 18:18> Discharge Summary - Patient Summary/Data Consults: Consultations 12/26/16 08:50 Consult to Physician [CONS] Routine - Patient Data Vitals - Most Recent: Last Vital Signs Temp 36.4 C 12/26/16 15:08 Pulse 98 12/26/16 15:08 Resp 18 12/26/16 15:08 BP 137/86 12/26/16 15:08 Pulse Ox 92 L 12/26/16 15:08 Med Orders - Current: Current Medications Discontinued Medications Acetaminophen (Tylenol) 650 mg PO Q4H PRN PRN Reason: Pain (Mild 1-3)/fever Amlodipine Besylate (Norvasc) 10 mg PO DAILY [facility] Last Admin: 12/26/16 11:13 Dose: 10 mg Gabapentin (Neurontin) 600 mg PO QID [facility] Last Admin: 12/26/16 19:23 Dose: Not Given Sodium Chloride (Normal Saline) 1,000 mls @ 999 mls/hr IV STAT ONE Stop: 12/25/16 19:44 Last Admin: 12/25/16 19:19 Dose: 999 mls/hr Clindamycin Phosphate 300 mg/ (Sodium Chloride) 52 mls @ 100 mls/hr IV ONETIME ONE Stop: 12/25/16 20:54 Last Admin: 12/25/16 21:15 Dose: Not Given Clindamycin Phosphate (Cleocin In D5w) Confirm Administered Dose 50 mls @ as directed IV .STK-MED ONE Stop: 12/25/16 21:01 Last Admin: 12/25/16 21:16 Dose: Not Given Clindamycin Phosphate 300 mg/ (Premix) 50 mls @ 150 mls/hr IV ONETIME ONE Stop: 12/25/16 21:23 Last Admin: 12/25/16 21:14 Dose: 150 mls/hr Clindamycin Phosphate (Cleocin In D5w) Confirm Administered Dose 50 mls @ as directed IV .STK-MED ONE Stop: 12/25/16 21:02 Last Admin: 12/25/16 21:16 Dose: Not Given Clindamycin Phosphate 450 mg/ (Sodium Chloride) 53 mls @ 100 mls/hr IV Q6H [facility] Last Admin: 12/26/16 04:12 Dose: Not Given Clindamycin Phosphate 300 mg/ (Premix) 50 mls @ 150 mls/hr IV Q6H [facility] Last Admin: 12/26/16 15:03 Dose: 150 mls/hr Ibuprofen (Motrin) 400 mg PO Q6H PRN PRN Reason: Pain (mild 1-3) Iopamidol (Isovue-300 (61%)) 50 ml IVPUSH ONETIME STA Stop: 12/25/16 19:13 Last Admin: 12/25/16 19:14 Dose: 50 ml Levetiracetam (Keppra) 500 mg PO BID [facility] Last Admin: 12/26/16 08:18 Dose: 500 mg Lisinopril (Prinivil) 30 mg PO DAILY [facility] Last Admin: 12/26/16 11:13 Dose: 30 mg Methylprednisolone Sodium Succinate (Solu-Medrol) 125 mg IVPUSH ONETIME ONE Stop: 12/25/16 20:28 Last Admin: 12/25/16 21:16 Dose: 125 mg Morphine Sulfate (Morphine) 2 mg IV ONETIME ONE Stop: 12/25/16 19:57 Last Admin: 12/25/16 20:24 Dose: 2 mg Ondansetron HCl (Zofran) 4 mg IVPUSH Q4H PRN PRN Reason: Nausea Oxycodone HCl (Oxycodone) 5 mg PO Q4H PRN PRN Reason: Pain (moderate 4-6) Sodium Chloride (Saline Flush) 10 ml FLUSH ASDIRECTED PRN PRN Reason: Keep Vein Open Last Admin: 12/25/16 18:06 Dose: 10 ml Sodium Chloride (Saline Flush) 2.5 ml FLUSH ASDIRECTED PRN PRN Reason: Keep Vein Open Last Admin: 12/25/16 19:19 Dose: 2.5 ml *Q Meaningful Use (DIS) - VTE *Q VTE Criteria *Q: - Stroke *Q Stroke Criteria *Q: - AMI *Q AMI Criteria *Q: - Free Text/Narrative Note: I have examined the patient. I have discussed findings and treatment plan with resident. I agree with the assessment and plan outlined in the following resident's note.
--- NOTE | 2017-01-01 09:22 | CT ---
EXAM DATE: 12/25/16 PATIENT'S AGE: 56 Patient: LYUBOV REED Facility: [facility] Site . Site : 1960 Study: CT-ST Neck [id number]/19/2017 7:24:05 PM Ordering Physician: Jules Villagomez Final Report: Indication: Neck pain Technique: CT soft tissues of the neck were acquired with contrast in usual fashion. No comparisons Impression: 1. Mucosal thickening seen within the anterior right ethmoid air cells and sphenoid sinus. 2. The bilateral craniotomies. Evidence of bilateral aneurysm clippings 3. Degenerative changes are seen in the discs facets of the cervical spine. 4. The parotid and submandibular glands are symmetric in size and density. 5. Numerous small lymph nodes are seen in the suprahyoid neck. They are benign by size criteria. All have a short axis diameter of less than 10 mm. 6. There is some edema/fluid seen in the retropharyngeal space and extending anteriorly carotid vasculature. On sagittal reconstruction, edema can be seen on images 43 extending from the level of C2 through C6. It does not enter the thorax. This fluid collection within the retropharyngeal space may represent underlying infectious/ inflammatory change. 7. The true vocal cords are normal. The epiglottis is normal. The airway remains patent. Please note that all CT scans at this facility use dose modulation, iterative reconstruction, and/or weight-based dosing when appropriate to reduce radiation dose to as low as reasonably achievable. Dictated by Alphonse Wood MD @ Dec 30 2016 11:21AM Signed by: Alphonse Wood MD @12/30/2016 11:24:00 AM (Electronic Signature) Report Signed by Proxy. [facility] HOSPITALArianna
== END 2016-12-26 18:00 | disposition home or self-care (01) ==
LOC: MW.ED 17:08 → MW.MS 20:53
PROVIDERS: ADMIT Internal Medicine; ATTEND Internal Medicine
DX: J01.20 Acute ethmoidal sinusitis, unspecified (principal); J02.9 Acute pharyngitis, unspecified; R60.9 Edema, unspecified; I10 Essential (primary) hypertension; R22.1 Localized swelling, mass and lump, neck; Z88.0 Allergy status to penicillin; Z88.2 Allergy status to sulfonamides; E78.00 Pure hypercholesterolemia, unspecified; Z90.49 Acquired absence of other specified parts of digestive tract; Z98.890 Other specified postprocedural states; Z79.899 Other long term (current) drug therapy; F17.210 Nicotine dependence, cigarettes, uncomplicated
CPT/HCPCS: 31575; 36415; 70491; 71020; 80048; 80053; 83605; 85025; 86308; 87081; 87880; 96361; 96365; 96366; 96375; 99285; A9270; G0378; J2270; J2930; J7040; Q9967

== ENCOUNTER 2017-02-09 19:31 | Inpatient (IN) | payer MEDICAID ==
--- NOTE | 2017-02-09 20:00 | EDM.PDOC ---
ED HPI GENERAL MEDICAL PROBLEM - General Chief Complaint: ENT Problem Stated Complaint: PT HAS SWOLLEN NECK Time Seen by Provider: 02/09/17 19:40 Source of Information: Reports: Patient History Limitations: Reports: No Limitations - History of Present Illness INITIAL COMMENTS - FREE TEXT/NARRATIVE: History of present illness: 56-year-old female presenting with swelling and erythema in the neck area. Patient was seen for this once before and admitted and given IV antibiotics with a significant amount of improvement and subsequent resolution. Patient was discharged and indicated that she has been fine until today and that it is just starting to swell and get hard to swallow again as it had before. Review of systems: As per history of present illness and below otherwise all systems reviewed and negative. Past medical history: As per history of present illness and as reviewed below otherwise noncontributory. Surgical history: As per history of present illness and as reviewed below otherwise noncontributory. Social history: No reported history of drug or alcohol abuse. Family history: As per history of present illness and as reviewed below otherwise noncontributory. Physical exam: HEENT: Atraumatic, submandibular region into the clavicle noted to be full, thickened and firm, with a band of erythema at the base of her throat, pupils reactive, negative for conjunctival pallor or scleral icterus, mucous membranes moist, throat clear, neck supple, nontender, trachea midline. Lungs: Clear to auscultation, breath sounds equal bilaterally, chest nontender. Heart: S1S2, regular, negative for clicks, rubs, or JVD. Abdomen: Soft, nondistended, nontender. Negative for masses or hepatosplenomegaly. Negative for costovertebral tenderness. Pelvis: Stable nontender. Genitourinary: Deferred. Rectal: Deferred. Extremities: Atraumatic, negative for cords or calf pain. Neurovascular unremarkable. Neuro: Awake, alert, oriented. Cranial nerves II through XII unremarkable. Cerebellum unremarkable. Motor and sensory unremarkable throughout. Exam nonfocal. Patient's renal function is greatly compromised due to dehydration and only one kidney. 2 L of normal saline ordered to rehydrate patient with intent to perform a repeat renal panel to evaluate for ability to do CT of the soft tissues the neck with contrast. Diagnostics: [CT of the soft tissues of the neck, CBC, CMP] Therapeutics: [IV fluid, fentanyl, Zofran] Impression: [Neck swelling] Plan: [Admit to OBS for further evaluation and airway management and/or monitoring] Definitive disposition and diagnosis as appropriate pending reevaluation and review of above. Neck Pain Score (Numeric/FACES): 7 - Related Data Allergies Allergy/AdvReac Type Severity Reaction Status Date / Time Penicillins Allergy Cannot Verified 02/09/17 19:37 Remember Sulfa (Sulfonamide Allergy Nausea and Verified 02/09/17 19:37 Antibiotics) Vomiting Home Meds: Home Meds LORazepam 1 tab PO BID PRN 04/20/14 [History] Amitriptyline HCl 75 mg PO BEDTIME 12/25/16 [History] Docusate Sodium [Colace] 100 mg PO BID PRN 12/25/16 [History] Gabapentin [Neurontin] 600 mg PO QID 12/25/16 [History] Lisinopril 30 mg PO DAILY 12/25/16 [History] Rosuvastatin [Crestor] 10 mg PO DAILY 12/25/16 [History] amLODIPine Besylate [Amlodipine Besylate] 10 mg PO DAILY 12/25/16 [History] levETIRAcetam [Keppra] 500 mg PO BID 12/25/16 [History] Past Medical History - Past Health History Medical/Surgical History: Denies Medical/Surgical History HEENT History: Reports: None Cardiovascular History: Reports: Afib, High Cholesterol, Hypertension Respiratory History: Reports: Intubation, Previous Gastrointestinal History: Reports: Cholelithiasis Genitourinary History: Reports: Other (See Below) Other Genitourinary History: only one kidney functioning [employer]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: Musculoskeletal History: Reports: None Neurological History: Reports: Cerebral Aneurysms, CVA Psychiatric History: Reports: None Endocrine/Metabolic History: Reports: None Hematologic History: Reports: None Immunologic History: Reports: None Oncologic (Cancer) History: Reports: None Dermatologic History: Reports: None - Infectious Disease History Infectious Disease History: Reports: Chicken Pox - Past Surgical History Head Surgeries/Procedures: Reports: Craniotomy HEENT Surgical History: Reports: Tonsillectomy Cardiovascular Surgical History: Reports: None Respiratory Surgical History: Reports: Tracheostomy GI Surgical History: Reports: Appendectomy, Cholecystectomy Other GI Surgeries/Procedures: peg tube Female Surgical History: Reports: Section Neurological Surgical History: Reports: None Musculoskeletal Surgical History: Reports: Arthroscopic Knee, ORIF, Other (See Below) Other Musculoskeletal Surgeries/Procedures:: left ankle Social & Family History - Family History Family Medical History: Noncontributory HEENT: Reports: None Cardiac: Reports: Heart Valve Replacement, [place] Respiratory: Reports: None GI: Reports: None : Reports: None Musculoskeletal: Reports: Arthritis Neurological: Reports: None Psychiatric: Reports: None Endocrine/Metabolic: Reports: Diabetes, type II Hematologic: Reports: B12 Deficiency Immunologic: Reports: None Dermatologic: Reports: None Oncologic: Reports: Hodgkin's Lymphoma, Other (See Below) Other Oncologic Family History: throat - Tobacco Use Smoking Status *Q: Current Every Day Smoker Years of Tobacco use: 39 Packs/Tins Daily: 0.5 Second Hand Smoke Exposure: No - Caffeine Use Caffeine Use: Reports: Coffee Caffeine Use Comment: 1cup/day - Alcohol Use Days Per Week of Alcohol Use: 0 - Recreational Drug Use Recreational Drug Use: No ED ROS ENT - Review of Systems Review Of Systems: See Below (History of present illness) ED EXAM, ENT - Physical Exam Exam: See Below (History of present illness) Course - Vital Signs Last Recorded V/S: Last Vital Signs Temp 35.6 C 02/09/17 19:34 Pulse 88 02/09/17 21:19 Resp 18 02/09/17 21:19 BP 135/89 02/09/17 21:19 Pulse Ox 96 02/09/17 21:19 - Orders/Labs/Meds Orders: Active Orders 24 hr Category Date Time Status Soft Tissue Neck w Cont [CT] Stat Exams 02/09/17 19:57 Ordered Clindamycin Phosphate in D5W [Cleocin in D5W] 300 mg Med 02/09/17 22:30 Active Premix Bag 1 bag IV Q6H Medication Orders Clindamycin Phosphate 300 mg/ (Premix) 50 mls @ 150 mls/hr IV Q6H [facility] Labs: Laboratory Tests 02/09/17 02/09/17 Range/Units 20:08 20:08 WBC 9.98 (4.0-11.0) K/uL RBC 4.01 L (4.30-5.90) M/uL Hgb 12.4 (12.0-16.0) g/dL Hct 36.6 (36.0-46.0) % MCV 91.3 (80.0-98.0) fL MCH 30.9 (27.0-32.0) pg MCHC 33.9 (31.0-37.0) g/dL RDW Std Deviation 47.3 (28.0-62.0) fl RDW Coeff of Yessenia 14 (11.0-15.0) % Plt Count 263 (150-400) K/uL MPV 9.40 (7.40-12.00) fL Neut % (Auto) 54.7 (48.0-80.0) % Lymph % (Auto) 32.5 (16.0-40.0) % [place] % (Auto) 6.3 (0.0-15.0) % Eos % (Auto) 5.9 (0.0-7.0) % Baso % (Auto) 0.6 (0.0-1.5) % Neut # (Auto) 5.5 (1.4-5.7) K/uL Lymph # (Auto) 3.2 H (0.6-2.4) K/uL [place] # (Auto) 0.6 (0.0-0.8) K/uL Eos # (Auto) 0.6 (0.0-0.7) K/uL Baso # (Auto) 0.1 (0.0-0.1) K/uL Nucleated RBC % 0.0 /100WBC Nucleated RBCs # 0 K/uL Sodium 141 (136-146) mmol/L Potassium 3.9 (3.5-5.1) mmol/L Chloride 105 (98-110) mmol/L Carbon Dioxide 24 (21-31) mmol/L BUN 40 H (6.0-23.0) mg/dL Creatinine 2.5 H (0.6-1.5) mg/dL Est Cr Clr Drug Dosing 22.96 mL/min Estimated GFR (MDRD) 19.8 ml/min Glucose 82 (60-110) mg/dL Calcium 9.2 (8.8-10.8) mg/dL Total Bilirubin 0.2 (0.1-1.5) mg/dL AST 10 (5-40) IU/L ALT 8 (8-54) IU/L Alkaline Phosphatase 82 (40-150) Total Protein 7.6 (6.0-8.0) g/dL Albumin 4.1 (3.5-5.0) g/dL Globulin 3.5 (2.0-3.5) g/dL Albumin/Globulin Ratio 1.2 L (1.3-2.8) Meds: Medications Generic Name Dose Route Start Last Admin Trade Name Waleq PRN Reason Stop Dose Admin Clindamycin Phosphate 300 mg/ 50 mls @ 150 mls/hr 02/09/17 22:30 Premix IV Q6H [facility] Discontinued Medications Generic Name Dose Route Start Last Admin Trade Name Ole PRN Reason Stop Dose Admin Fentanyl 50 mcg 02/09/17 22:11 02/09/17 22:20 Sublimaze IVPUSH 02/09/17 22:12 50 mcg ONETIME ONE Administration Sodium Chloride 1,000 mls @ 999 mls/hr 02/09/17 21:12 02/09/17 21:20 Normal Saline IV 02/09/17 22:12 999 mls/hr STAT ONE Administration Sodium Chloride 1,000 mls @ 999 mls/hr 02/09/17 21:12 02/09/17 22:19 Normal Saline IV 02/09/17 22:12 999 mls/hr STAT ONE Administration Methylprednisolone Sodium Succinate 125 mg 02/09/17 22:18 Solu-Medrol IVPUSH 02/09/17 22:19 ONETIME ONE Ondansetron HCl 4 mg 02/09/17 22:11 02/09/17 22:20 Zofran IVPUSH 02/09/17 22:12 4 mg ONETIME ONE Administration Departure - Departure Time of Disposition: 22:34 Disposition: Refer to Observation Condition: Good Clinical Impression: Swollen neck - Discharge Information Forms: ED Department Discharge - My Orders Last 24 Hours: My Active Orders 02/09/17 19:57 Soft Tissue Neck w Cont [CT] Stat 02/09/17 22:30 Clindamycin Phosphate in D5W [Cleocin in D5W] 300 mg Premix Bag 1 bag IV Q6H - Assessment/Plan Last 24 Hours: My Active Orders 02/09/17 19:57 Soft Tissue Neck w Cont [CT] Stat 02/09/17 22:30 Clindamycin Phosphate in D5W [Cleocin in D5W] 300 mg Premix Bag 1 bag IV Q6H
[2017-02-09] MEDS ORDERED: Sodium Chloride 0.9% 1,000 ML IV ONE ×2 (21:12)
[2017-02-09] MEDS ORDERED: fentaNYL 100 MCG/2 ML SDV IVPUSH ONE (22:11)
[2017-02-09] MEDS ORDERED: Ondansetron 4 MG/2 ML SDV IVPUSH ONE (22:11)
[2017-02-09] MEDS ORDERED: methylPREDNISolone Sodium Succinate 125 MG/2 ML SDV IVPUSH ONE (22:18)
[2017-02-09] MEDS: Clindamycin Phosphate in D5W 300 MG in Premix Bag 1 BAG IV SCH ×2 (22:32)
[2017-02-10] MEDS ORDERED: HYDROmorphone 1 MG/ML Syringe IVPUSH PRN (00:06)
[2017-02-10] MEDS: levETIRAcetam 500 MG Tab PO SCH ×3 (01:13→21:00)
[2017-02-10] MEDS: Amitriptyline 25 MG Tab PO SCH ×2 (01:13→21:01)
[2017-02-10] MEDS: D5 1/2 NS w/ 20 mEq/L KCl 1,000 ML IV SCH ×4 (01:21→21:00)
[2017-02-10] MEDS: Clindamycin Phosphate in D5W 300 MG in Premix Bag 1 BAG IV SCH ×8 (04:49→21:31)
[2017-02-10] MEDS: methylPREDNISolone Sodium Succinate 125 MG/2 ML SDV IVPUSH SCH ×2 (09:33→21:02)
[2017-02-10] MEDS: Gabapentin 300 MG Cap PO SCH ×3 (10:17→21:01)
[2017-02-10] MEDS: amLODIPine 5 MG Tab PO SCH (10:35)
[2017-02-10] MEDS: Lisinopril 10 MG Tab PO SCH (10:36)
--- NOTE | 2017-02-10 10:40 | PCM.HP ---
H&P History of Present Illness - General Date of Service: 02/10/17 Admit Problem/Dx: Admission Diagnosis/Problem Admission Diagnosis/Problem Neck swelling Source of Information: Patient, Old Records History Limitations: Reports: No Limitations - History of Present Illness Initial Comments - Free Text/Narative: 56 year old female had onset of mild burning feeling in the center of her neck 2 days ago. She said that her neck then became more swollen and she had increasing problems swallowing. She became worried that perhaps her throat would become swollen shut, so she came to the emergency room. She reports her tongue had not started to swell yet. She had a previous episode in mid December of this year where the swelling occurred in the same way. At that time her tongue had become very swollen and she had a much more swallowing difficulty. She was admitted at that time and placed on IV clindamycin and on Solu-Medrol. Her swelling improved and the ear nose and throat doctor was consulted and she performed nasopharyngoscopy, which did not show a specific lesion to explain why the swelling had started. She has not had fever. She reports that one of her left lower molars is somewhat sensitive has not had any gum swelling. She reports that she has not noticed any painful or swollen areas under her tongue or any swollen glands prior to the neck swelling happening. She has had no ear pain and no throat soreness. She has had clear nasal drainage and no coughing. 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 There is a note that she has type 2 diabetes but she has not been on medication for that. She had a burst intracranial aneurysm operated on in 2015 in [place] where she lives, and a second aneurysm was found at that time on the opposite side of her head and that aneurysm was clipped in July of this year. 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 Symptom Onset Date: 02/08/17 Duration of Symptoms: Reports: Getting Worse Location: Reports: Neck Quality: Reports: Ache, Pressure, Same as Previous Episode Severity: Severe Improves with: Reports: None Context: Reports: Other (No insect bite or other trauma) Neck Pain Score (Numeric/FACES): 6 - Related Data Allergies/Adverse Reactions: Allergies Allergy/AdvReac Type Severity Reaction Status Date / Time Penicillins Allergy Cannot Verified 02/09/17 19:37 Remember Sulfa (Sulfonamide Allergy Nausea and Verified 02/09/17 19:37 Antibiotics) Vomiting Home Medications: Home Meds LORazepam 1 tab PO BID PRN 04/20/14 [History] Amitriptyline HCl 75 mg PO BEDTIME 12/25/16 [History] Docusate Sodium [Colace] 100 mg PO BID PRN 12/25/16 [History] Gabapentin [Neurontin] 600 mg PO QID 12/25/16 [History] Lisinopril 30 mg PO DAILY 12/25/16 [History] Rosuvastatin [Crestor] 10 mg PO DAILY 12/25/16 [History] amLODIPine Besylate [Amlodipine Besylate] 10 mg PO DAILY 12/25/16 [History] levETIRAcetam [Keppra] 500 mg PO BID 12/25/16 [History] Past Medical History HEENT History: Reports: None (Dental caries with extensive dental restorations; previous history of anterior neck and tongue swelling happening responding to clindamycin and Solumedrol) Cardiovascular History: Reports: Aneurysm, High Cholesterol, Hypertension Respiratory History: Reports: Intubation, Previous (tracheostomy due to extended ventilator use with intracranial hemorrhage in Apr 2016). 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: Reports: Musculoskeletal History: Reports: None Neurological History: Reports: Cerebral Aneurysms, CVA Psychiatric History: Reports: Anxiety Endocrine/Metabolic History: Reports: None Hematologic History: Reports: None Immunologic History: Reports: None Oncologic (Cancer) History: Reports: None Dermatologic History: Reports: None - Infectious Disease History Infectious Disease History: Reports: Chicken Pox, Other (See Below) (Recurrent head and neck infection of uncertain source) - Past Surgical History Head Surgeries/Procedures: Reports: Craniotomy HEENT Surgical History: Reports: Tonsillectomy Cardiovascular Surgical History: Reports: Aneurysm Respiratory Surgical History: Reports: Tracheostomy GI Surgical History: Reports: Appendectomy, Cholecystectomy Other GI Surgeries/Procedures: peg tube Female Surgical History: Reports: Section Neurological Surgical History: Reports: None Musculoskeletal Surgical History: Reports: Arthroscopic Knee, ORIF, Other (See Below) Other Musculoskeletal Surgeries/Procedures:: left ankle Social & Family History - Family History Family Medical History: Noncontributory HEENT: Reports: None Cardiac: Reports: Heart Valve Replacement, [place] Respiratory: Reports: None GI: Reports: None : Reports: None Musculoskeletal: Reports: Arthritis Neurological: Reports: None Psychiatric: Reports: None Endocrine/Metabolic: Reports: Diabetes, type II Hematologic: Reports: B12 Deficiency Immunologic: Reports: None Dermatologic: Reports: None Oncologic: Reports: Hodgkin's Lymphoma, Other (See Below) Other Oncologic Family History: throat - Tobacco Use Smoking Status *Q: Current Every Day Smoker Years of Tobacco use: 35 Packs/Tins Daily: 0.5 Second Hand Smoke Exposure: Yes - Caffeine Use Caffeine Use: Reports: Coffee, Soda Caffeine Use Comment: 1cup/day - Alcohol Use Days Per Week of Alcohol Use: 0 - Recreational Drug Use Recreational Drug Use: No H&P Review of Systems - Review of Systems: Review Of Systems: See Below General: Denies: Fever, Chills, Fatigue HEENT: Reports: Rhinitis. Denies: Ear Pain, Eye Pain, Sore Throat Pulmonary: Denies: Shortness of Breath, Cough Cardiovascular: Reports: No Symptoms Gastrointestinal: Reports: No Symptoms Genitourinary: Reports: No Symptoms Musculoskeletal: Reports: No Symptoms Skin: Reports: No Symptoms Psychiatric: Reports: No Symptoms Neurological: Reports: Seizure Hematologic/Lymphatic: Reports: No Symptoms Immunologic: Reports: No Symptoms Exam - Exam Exam: See Below - Vital Signs Vital Signs: Last Vital Signs Temp 36.2 C 02/10/17 08:00 Pulse 100 02/10/17 08:00 Resp 16 02/10/17 08:00 BP 143/93 H 02/10/17 08:00 Pulse Ox 95 02/10/17 08:00 Weight: 91.6 kg - Exam General: Alert, Oriented. No: Mild Distress HEENT: Conjunctiva Clear, EACs Clear, EOMI, Hearing Intact, Mucosa Moist & [place] , Nares Patent, Normal Nasal Septum, Posterior Pharynx Clear, Pupils Equal, Pupils Reactive, TMs Clear Neck: Supple, Trachea Midline, Other (Diffuse anterior neck swelling with irregular red banding of the skin above the mid neck and below the mid neck. There is no mass inside of the swelling and there are no enlarged lymph nodes) Lungs: Clear to Auscultation, Normal Respiratory Effort Cardiovascular: Regular Rate, Regular Rhythm GI/Abdominal Exam: Normal Bowel Sounds, Soft, Non-Tender, No Distention Back Exam: Normal Inspection Extremities: Normal Inspection, No Pedal Edema, Normal Capillary Refill Peripheral Pulses: 1+: Dorsalis Pedis (L), Dorsalis Pedis (R) Skin: Warm, Dry, Intact Neurological: Cranial Nerves Intact, Reflexes Equal Bilateral, Normal Speech Neuro Extensive - Mental Status: Alert, Oriented x3, Normal Mood/Affect, Normal Cognition, Memory Intact Neuro Extensive - Motor, Sensory, Reflexes: CN II-XII Intact, Normal Gait, Normal Reflexes Psychiatric: Alert, Normal Affect, Normal Mood - Patient Data Lab Results Last 24 hrs: Laboratory Results - last 24 hr 02/09/17 02/10/17 02/10/17 Range/Units 22:40 06:38 06:38 WBC 6.22 (4.0-11.0) K/uL RBC 4.39 (4.30-5.90) M/uL Hgb 13.5 (12.0-16.0) g/dL Hct 40.2 (36.0-46.0) % MCV 91.6 (80.0-98.0) fL MCH 30.8 (27.0-32.0) pg MCHC 33.6 (31.0-37.0) g/dL RDW Std Deviation 46.8 (28.0-62.0) fl RDW Coeff of Yessenia 14 (11.0-15.0) % Plt Count 258 (150-400) K/uL MPV 9.50 (7.40-12.00) fL Neut % (Auto) 83.4 H (48.0-80.0) % Lymph % (Auto) 15.3 L (16.0-40.0) % Riley % (Auto) 1.1 (0.0-15.0) % Eos % (Auto) 0.0 (0.0-7.0) % Baso % (Auto) 0.2 (0.0-1.5) % Neut # (Auto) 5.2 (1.4-5.7) K/uL Lymph # (Auto) 1.0 (0.6-2.4) K/uL Riley # (Auto) 0.1 (0.0-0.8) K/uL Eos # (Auto) 0.0 (0.0-0.7) K/uL Baso # (Auto) 0.0 (0.0-0.1) K/uL Nucleated RBC % 0.0 /100WBC Nucleated RBCs # 0 K/uL ESR 55 H (0-29) mm/hr Sodium 141 141 (136-146) mmol/L Potassium 3.9 4.4 (3.5-5.1) mmol/L Chloride 108 109 (98-110) mmol/L Carbon Dioxide 23 19 L (21-31) mmol/L BUN 36 H 31 H (6.0-23.0) mg/dL Creatinine 2.1 H 1.9 H (0.6-1.5) mg/dL Est Cr Clr Drug Dosing 27.34 30.21 mL/min Estimated GFR (MDRD) 24.2 27.2 ml/min Glucose 99 170 H (60-110) mg/dL Calcium 8.7 L 8.5 L (8.8-10.8) mg/dL Total Bilirubin 0.3 (0.1-1.5) mg/dL AST 11 (5-40) IU/L ALT 8 (8-54) IU/L Alkaline Phosphatase 84 (40-150) C-Reactive Protein 5.49 H (0.0-0.5) mg/dL Total Protein 7.8 (6.0-8.0) g/dL Albumin 4.2 (3.5-5.0) g/dL Globulin 3.6 H (2.0-3.5) g/dL Albumin/Globulin Ratio 1.2 L (1.3-2.8) Result Diagrams: 02/10/17 06:38 02/10/17 06:38 *Q Meaningful Use (ADM) - VTE *Q VTE Criteria *Q: - Stroke *Q Stroke Criteria *Q: - AMI *Q AMI Criteria *Q: - Problem List (1) Cellulitis, neck SNOMED Code(s): 09083450 ICD Code: L03.221 - CELLULITIS OF NECK Status: Acute Priority: High Current Visit: Yes Onset Date: ~02/08/17 (2) Acute on chronic renal insufficiency SNOMED Code(s): 946464269 ICD Code: N28.9 - DISORDER OF KIDNEY AND URETER, UNSPECIFIED; N18.9 - CHRONIC KIDNEY DISEASE, UNSPECIFIED Status: Acute Priority: High Current Visit: Yes Onset Date: ~02/09/17 (3) Swollen neck SNOMED Code(s): 497564080 ICD Code: R22.1 - LOCALIZED SWELLING, MASS AND LUMP, NECK Status: Acute Priority: High Current Visit: Yes Onset Date: ~02/08/17 Problem List Initiated/Reviewed/Updated: Yes Orders Last 24hrs: Active Orders 24 hr Category Date Time Status Communication Order [RC] ROUTINE Care 02/10/17 10:09 Ordered Communication Order [RC] ROUTINE Care 02/10/17 10:12 Ordered Communication Order [RC] ROUTINE Care 02/10/17 10:19 Ordered Clear Liquid Diet [DIET] Diet 02/10/17 Lunch Ordered Nothing Per Oral Diet [DIET] Diet 02/10/17 Breakfast Active BASIC METABOLIC PANEL,BMP [CHEM] Routine Lab 02/11/17 06:00 Ordered CBC WITH AUTO DIFF [HEME] Routine Lab 02/11/17 06:00 Ordered GLYCOSYLATED HEMOGLOBIN,HGBA1C [CHEM] Routine Lab 02/11/17 06:00 Ordered SEDIMENTATION RATE AUTO [HEME] Routine Lab 02/11/17 06:00 Ordered Amitriptyline [Elavil] Med 02/10/17 00:12 Active 75 mg PO BEDTIME D5 1/2 NS w/ 20 mEq/L KCl 1,000 ml Med 02/10/17 00:15 Active IV ASDIRECTED Gabapentin Med 02/10/17 06:00 Pending 600 mg PO QID HYDROmorphone [Dilaudid] Med 02/10/17 00:06 Active 0.5 - 1 mg IVPUSH Q3H PRN Lisinopril [Lisinopril] Med 02/10/17 10:30 Ordered 30 mg PO DAILY amLODIPine [Norvasc] Med 02/10/17 10:30 Ordered 10 mg PO DAILY levETIRAcetam [Keppra] Med 02/10/17 00:15 Active 500 mg PO BID methylPREDNISolone Sod Succ [Solu-MEDROL] Med 02/10/17 10:00 Active 125 mg IVPUSH Q12H Medication Orders Amitriptyline HCl (Elavil) 75 mg PO BEDTIME [facility] Last Admin: 02/10/17 01:13 Dose: 75 mg Amlodipine Besylate (Norvasc) 10 mg PO DAILY [facility] Gabapentin (Neurontin) 600 mg PO TID [facility] Last Admin: 02/10/17 10:17 Dose: 600 mg Hydromorphone HCl (Dilaudid) 0.5 - 1 mg IVPUSH Q3H PRN PRN Reason: Pain Clindamycin Phosphate 300 mg/ (Premix) 50 mls @ 150 mls/hr IV Q6H [facility] Last Admin: 02/10/17 09:35 Dose: 150 mls/hr Infusion: 02/10/17 05:09 Dose: 150 mls/hr Admin: 02/10/17 04:49 Dose: 150 mls/hr Infusion: 02/09/17 22:52 Dose: 150 mls/hr Admin: 02/09/17 22:32 Dose: 150 mls/hr Potassium Chloride/Dextrose/Sod Cl (D5 1/2 Ns W/ 20 Meq/L Kcl) 1,000 mls @ 75 mls/hr IV ASDIRECTED [facility] Last Admin: 02/10/17 09:37 Dose: 125 mls/hr Infusion: 02/10/17 09:21 Dose: 125 mls/hr Admin: 02/10/17 01:21 Dose: 125 mls/hr Levetiracetam (Keppra) 500 mg PO BID [facility] Last Admin: 02/10/17 08:15 Dose: 500 mg Admin: 02/10/17 01:13 Dose: 500 mg Lisinopril (Prinivil) 30 mg PO DAILY [facility] Methylprednisolone Sodium Succinate (Solu-Medrol) 125 mg IVPUSH Q12H [facility] Last Admin: 02/10/17 09:33 Dose: 125 mg Assessment/Plan Comment:: 1) IV hydration to improve renal function and to enable IV contrast to be considered for future neck CT 2) IV clindamycin and Solu-Medrol to reduce neck Swelling 3) Consider CT of neck to see possible causes of the recurrent infection 4) There is confusion as to whether she has type 2 diabetes and a hemoglobin A1c will be drawn with tomorrow's blood testing 5) repeat CBC, sedimentation rate, BMP tomorrow morning
[2017-02-10] MEDS ORDERED: Calcium Carbonate 500 MG Tab.Chew PO ONE (11:09)
[2017-02-11] MEDS: Clindamycin Phosphate in D5W 300 MG in Premix Bag 1 BAG IV SCH ×8 (04:14→22:11)
[2017-02-11] MEDS: D5 1/2 NS w/ 20 mEq/L KCl 1,000 ML IV SCH ×2 (05:49→18:33)
[2017-02-11] MEDS: Gabapentin 300 MG Cap PO SCH ×3 (06:17→21:18)
[2017-02-11] MEDS: amLODIPine 5 MG Tab PO SCH (09:31)
[2017-02-11] MEDS: Lisinopril 10 MG Tab PO SCH (09:32)
[2017-02-11] MEDS: methylPREDNISolone Sodium Succinate 125 MG/2 ML SDV IVPUSH SCH (09:32)
[2017-02-11] MEDS: levETIRAcetam 500 MG Tab PO SCH ×2 (09:32→21:17)
[2017-02-11] MEDS ORDERED: LORazepam 0.5 MG Tab PO PRN (15:47)
--- NOTE | 2017-02-11 18:13 | PCM.PN ---
<Jeb Latif Z - Last Filed: 02/11/17 18:02> - General Info Date of Service: 02/11/17 Admission Dx/Problem (Free Text): Britta has done significantly well since yesterday. Her swelling has decreased in her neck. There does appear to be a nodule around the base of the thyroid area and submandibular for which she does require imaging. And she still does have some residual swelling but much improved since initial admission. CBC count did finally elevate today. However she has not had any febrile issues any tachycardia or any tachypnea presently. She is on room air. She is denying nausea or vomiting, diarrhea or constipation. She is complaining of anxiety and a tremor which are likely secondary to her anxiety related issues. I did start her on her home dose of lorazepam 0.5 mg when necessary. We will continue to watch the patient. - Review of Systems General: Reports: Weakness, Fatigue HEENT: Reports: Other (neck swelling) Cardiovascular: Reports: Palpitations Gastrointestinal: Reports: No Symptoms Genitourinary: Reports: No Symptoms Musculoskeletal: Reports: Other (tremors of right hand) Psychiatric: Reports: Anxiety, Agitation - Patient Data Vitals - Most Recent: Last Vital Signs Temp 37.0 C 02/11/17 16:00 Pulse 89 02/11/17 16:00 Resp 20 02/11/17 16:00 BP 138/91 H 02/11/17 16:00 Pulse Ox 99 02/11/17 16:00 Weight - Most Recent: 91.6 kg I&O - Last 24 Hours: Intake & Output 02/11/17 02/11/17 02/11/17 06:59 14:59 22:59 Intake Total 2456 Output Total 1800 Balance 656 Med Orders - Current: Current Medications Amitriptyline HCl (Elavil) 75 mg PO BEDTIME [facility] Last Admin: 02/10/17 21:01 Dose: 75 mg Amlodipine Besylate (Norvasc) 10 mg PO DAILY [facility] Last Admin: 02/11/17 09:31 Dose: 10 mg Gabapentin (Neurontin) 600 mg PO TID [facility] Last Admin: 02/11/17 13:37 Dose: 600 mg Hydromorphone HCl (Dilaudid) 0.5 - 1 mg IVPUSH Q3H PRN PRN Reason: Pain Clindamycin Phosphate 300 mg/ (Premix) 50 mls @ 150 mls/hr IV Q6H [facility] Last Admin: 02/11/17 15:36 Dose: 150 mls/hr Potassium Chloride/Dextrose/Sod Cl (D5 1/2 Ns W/ 20 Meq/L Kcl) 1,000 mls @ 75 mls/hr IV ASDIRECTED [facility] Last Admin: 02/11/17 05:49 Dose: 75 mls/hr Levetiracetam (Keppra) 500 mg PO BID [facility] Last Admin: 02/11/17 09:32 Dose: 500 mg Lisinopril (Prinivil) 30 mg PO DAILY [facility] Last Admin: 02/11/17 09:32 Dose: 30 mg Lorazepam (Ativan) 0.5 mg PO Q6H PRN PRN Reason: Anxiety Last Admin: 02/11/17 16:26 Dose: 0.5 mg Discontinued Medications Calcium Carbonate/Glycine (Tums) 1,000 mg PO ONETIME ONE Stop: 02/10/17 11:10 Last Admin: 02/10/17 12:18 Dose: 1,000 mg Fentanyl (Sublimaze) 50 mcg IVPUSH ONETIME ONE Stop: 02/09/17 22:12 Last Admin: 02/09/17 22:20 Dose: 50 mcg Sodium Chloride (Normal Saline) 1,000 mls @ 999 mls/hr IV STAT ONE Stop: 02/09/17 22:12 Last Admin: 02/09/17 21:20 Dose: 999 mls/hr Sodium Chloride (Normal Saline) 1,000 mls @ 999 mls/hr IV STAT ONE Stop: 02/09/17 22:12 Last Admin: 02/09/17 22:19 Dose: 999 mls/hr Potassium Chloride/Dextrose/Sod Cl (D5 1/2 Ns W/ 20 Meq/L Kcl) 1,000 mls @ 75 mls/hr IV ASDIRECTED [facility] Last Admin: 02/10/17 18:26 Dose: 125 mls/hr Methylprednisolone Sodium Succinate (Solu-Medrol) 125 mg IVPUSH ONETIME ONE Stop: 02/09/17 22:19 Last Admin: 02/09/17 22:32 Dose: 125 mg Methylprednisolone Sodium Succinate (Solu-Medrol) 125 mg IVPUSH Q12H [facility] Last Admin: 02/11/17 09:32 Dose: 125 mg Ondansetron HCl (Zofran) 4 mg IVPUSH ONETIME ONE Stop: 02/09/17 22:12 Last Admin: 02/09/17 22:20 Dose: 4 mg - Exam General: Alert, Oriented, Cooperative HEENT: Pupils Equal Neck: Other (bilateral neck swelling with tenderness in the coracoid process area along with sub-mandibular tenderness on the left side) Lungs: Clear to Auscultation Cardiovascular: Regular Rate GI/Abdominal Exam: Normal Bowel Sounds Extremities: Normal Inspection - Problem List Review Problem List Initiated/Reviewed/Updated: Yes - My Orders Last 24 Hours: My Active Orders 02/11/17 15:47 LORazepam [Ativan] 0.5 mg PO Q6H PRN - Plan Plan:: 1) IV hydration to improve renal function and to enable IV contrast to be considered for future neck CT 2) IV clindamycin and Solu-Medrol to reduce neck Swelling -neck swelling has improved 3) CT of neck w/o contrast ordered because contrast at this point was not recommended due to BUN and creatinine of the patient; awaiting results 4)A1c results were within normal limits 5)Anxiety-patient to receive lorazepam 0.5 mg every 4 hours when necessary 6) repeat CBC, sedimentation rate, BMP tomorrow morning <Renan Barnhart - Last Filed: 02/11/17 18:25> - Patient Data Vitals - Most Recent: Last Vital Signs Temp 37.0 C 02/11/17 16:00 Pulse 89 02/11/17 16:00 Resp 20 02/11/17 16:00 BP 138/91 H 02/11/17 16:00 Pulse Ox 99 02/11/17 16:00 I&O - Last 24 Hours: Intake & Output 02/11/17 02/11/17 02/11/17 06:59 14:59 22:59 Intake Total 3298 Output Total 1800 Balance 1498 Med Orders - Current: Current Medications Amitriptyline HCl (Elavil) 75 mg PO BEDTIME [facility] Last Admin: 02/10/17 21:01 Dose: 75 mg Amlodipine Besylate (Norvasc) 10 mg PO DAILY [facility] Last Admin: 02/11/17 09:31 Dose: 10 mg Gabapentin (Neurontin) 600 mg PO TID [facility] Last Admin: 02/11/17 13:37 Dose: 600 mg Hydromorphone HCl (Dilaudid) 0.5 - 1 mg IVPUSH Q3H PRN PRN Reason: Pain Clindamycin Phosphate 300 mg/ (Premix) 50 mls @ 150 mls/hr IV Q6H [facility] Last Admin: 02/11/17 15:36 Dose: 150 mls/hr Potassium Chloride/Dextrose/Sod Cl (D5 1/2 Ns W/ 20 Meq/L Kcl) 1,000 mls @ 75 mls/hr IV ASDIRECTED [facility] Last Admin: 02/11/17 05:49 Dose: 75 mls/hr Levetiracetam (Keppra) 500 mg PO BID [facility] Last Admin: 02/11/17 09:32 Dose: 500 mg Lisinopril (Prinivil) 30 mg PO DAILY [facility] Last Admin: 02/11/17 09:32 Dose: 30 mg Lorazepam (Ativan) 0.5 mg PO Q6H PRN PRN Reason: Anxiety Last Admin: 02/11/17 16:26 Dose: 0.5 mg Discontinued Medications Calcium Carbonate/Glycine (Tums) 1,000 mg PO ONETIME ONE Stop: 02/10/17 11:10 Last Admin: 02/10/17 12:18 Dose: 1,000 mg Fentanyl (Sublimaze) 50 mcg IVPUSH ONETIME ONE Stop: 02/09/17 22:12 Last Admin: 02/09/17 22:20 Dose: 50 mcg Sodium Chloride (Normal Saline) 1,000 mls @ 999 mls/hr IV STAT ONE Stop: 02/09/17 22:12 Last Admin: 02/09/17 21:20 Dose: 999 mls/hr Sodium Chloride (Normal Saline) 1,000 mls @ 999 mls/hr IV STAT ONE Stop: 02/09/17 22:12 Last Admin: 02/09/17 22:19 Dose: 999 mls/hr Potassium Chloride/Dextrose/Sod Cl (D5 1/2 Ns W/ 20 Meq/L Kcl) 1,000 mls @ 75 mls/hr IV ASDIRECTED [facility] Last Admin: 02/10/17 18:26 Dose: 125 mls/hr Methylprednisolone Sodium Succinate (Solu-Medrol) 125 mg IVPUSH ONETIME ONE Stop: 02/09/17 22:19 Last Admin: 02/09/17 22:32 Dose: 125 mg Methylprednisolone Sodium Succinate (Solu-Medrol) 125 mg IVPUSH Q12H [facility] Last Admin: 02/11/17 09:32 Dose: 125 mg Ondansetron HCl (Zofran) 4 mg IVPUSH ONETIME ONE Stop: 02/09/17 22:12 Last Admin: 02/09/17 22:20 Dose: 4 mg - Problem List & Annotations (1) Cellulitis, neck SNOMED Code(s): 68182384 Code(s): L03.221 - CELLULITIS OF NECK Status: Acute Priority: High Current Visit: Yes Onset Date: ~02/08/17 (2) Acute on chronic renal insufficiency SNOMED Code(s): 696800250 Code(s): N28.9 - DISORDER OF KIDNEY AND URETER, UNSPECIFIED; N18.9 - CHRONIC KIDNEY DISEASE, UNSPECIFIED Status: Acute Priority: High Current Visit: Yes Onset Date: ~02/09/17 (3) Swollen neck SNOMED Code(s): 894717764 Code(s): R22.1 - LOCALIZED SWELLING, MASS AND LUMP, NECK Status: Acute Priority: High Current Visit: Yes Onset Date: ~02/08/17 - My Orders Last 24 Hours: My Active Orders 02/11/17 12:08 Soft Tissue Neck wo Cont [CT] Routine 02/11/17 14:10 Code Status [Resuscitation Status] Routine 02/12/17 06:00 BASIC METABOLIC PANEL,BMP [CHEM] Routine CBC WITH AUTO DIFF [HEME] Routine - Free Text/Narrative Note: Dr. Gianna Barnhart MD notes: I have examined this patient today and have discussed her progress with her. I have seen her data and ordered her CT scan. I have discussed her in detail with Dr. Latif. I concur with his assessment and further plan for her care.
[2017-02-11] MEDS: Amitriptyline 25 MG Tab PO SCH (21:18)
[2017-02-12] MEDS: Clindamycin Phosphate in D5W 300 MG in Premix Bag 1 BAG IV SCH ×8 (04:08→21:37)
[2017-02-12] MEDS: D5 1/2 NS w/ 20 mEq/L KCl 1,000 ML IV SCH (05:42)
[2017-02-12] MEDS: Gabapentin 300 MG Cap PO SCH ×3 (05:45→21:37)
[2017-02-12] MEDS: Lisinopril 10 MG Tab PO SCH (08:38)
[2017-02-12] MEDS: amLODIPine 5 MG Tab PO SCH (08:38)
[2017-02-12] MEDS: levETIRAcetam 500 MG Tab PO SCH ×2 (08:38→21:36)
--- NOTE | 2017-02-12 10:55 | PCM.PN ---
- General Info Date of Service: 02/12/17 Admission Dx/Problem (Free Text): Cellulitis to head and neck Subjective Update: Feeling better this morning. Feels a little more swollen on the L side today. R is better. Erythema is improving. No trouble swallowing, no drooling. No sore throat. NO chest pain or SOB. Functional Status: Reports: Pain Controlled, Tolerating Diet, Ambulating, Urinating - Review of Systems General: Reports: No Symptoms. Denies: Fever HEENT: Reports: Other (feels left side of neck a little more swollen and tender. ). Denies: Sore Throat Pulmonary: Reports: No Symptoms. Denies: Shortness of Breath, Cough, Sputum, Hemoptysis Cardiovascular: Reports: No Symptoms. Denies: Chest Pain Gastrointestinal: Reports: No Symptoms. Denies: Abdominal Pain, Nausea, Vomiting Genitourinary: Reports: No Symptoms. Denies: Dysuria, Frequency, Burning Musculoskeletal: Reports: No Symptoms, Neck Pain Skin: Reports: No Symptoms Neurological: Reports: No Symptoms Psychiatric: Reports: No Symptoms - Patient Data Vitals - Most Recent: Last Vital Signs Temp 97.4 F 02/12/17 07:00 Pulse 87 02/12/17 07:00 Resp 18 02/12/17 07:00 BP 157/93 H 02/12/17 08:38 Pulse Ox 99 02/12/17 07:00 Weight - Most Recent: 91.6 kg I&O - Last 24 Hours: Intake & Output 02/11/17 02/12/17 02/12/17 22:59 06:59 14:59 Intake Total 3298 1552 50 Output Total 1800 1900 Balance 1498 -348 50 Lab Results Last 24 Hours: Laboratory Results - last 24 hr 02/12/17 02/12/17 Range/Units 06:15 06:15 WBC 16.41 H (4.0-11.0) K/uL RBC 3.93 L (4.30-5.90) M/uL Hgb 12.0 (12.0-16.0) g/dL Hct 36.3 (36.0-46.0) % MCV 92.4 (80.0-98.0) fL MCH 30.5 (27.0-32.0) pg MCHC 33.1 (31.0-37.0) g/dL RDW Std Deviation 48.8 (28.0-62.0) fl RDW Coeff of Yessenia 14 (11.0-15.0) % Plt Count 272 (150-400) K/uL MPV 9.50 (7.40-12.00) fL Neut % (Auto) 78.5 (48.0-80.0) % Lymph % (Auto) 15.5 L (16.0-40.0) % [place] % (Auto) 5.9 (0.0-15.0) % Eos % (Auto) 0.0 (0.0-7.0) % Baso % (Auto) 0.1 (0.0-1.5) % Neut # (Auto) 12.9 H (1.4-5.7) K/uL Lymph # (Auto) 2.6 H (0.6-2.4) K/uL [place] # (Auto) 1.0 H (0.0-0.8) K/uL Eos # (Auto) 0.0 (0.0-0.7) K/uL Baso # (Auto) 0.0 (0.0-0.1) K/uL Nucleated RBC % 0.0 /100WBC Nucleated RBCs # 0 K/uL Sodium 143 (136-146) mmol/L Potassium 4.2 (3.5-5.1) mmol/L Chloride 107 (98-110) mmol/L Carbon Dioxide 26 (21-31) mmol/L BUN 25 H (6.0-23.0) mg/dL Creatinine 1.5 (0.6-1.5) mg/dL Est Cr Clr Drug Dosing 38.27 mL/min Estimated GFR (MDRD) 35.7 ml/min Glucose 105 (60-110) mg/dL Calcium 8.7 L (8.8-10.8) mg/dL Med Orders - Current: Current Medications Amitriptyline HCl (Elavil) 75 mg PO BEDTIME [facility] Last Admin: 02/11/17 21:18 Dose: 75 mg Amlodipine Besylate (Norvasc) 10 mg PO DAILY [facility] Last Admin: 02/12/17 08:38 Dose: 10 mg Gabapentin (Neurontin) 600 mg PO TID [facility] Last Admin: 02/12/17 05:45 Dose: 600 mg Hydromorphone HCl (Dilaudid) 0.5 - 1 mg IVPUSH Q3H PRN PRN Reason: Pain Clindamycin Phosphate 300 mg/ (Premix) 50 mls @ 150 mls/hr IV Q6H [facility] Last Admin: 02/12/17 10:15 Dose: 150 mls/hr Levetiracetam (Keppra) 500 mg PO BID [facility] Last Admin: 02/12/17 08:38 Dose: 500 mg Lisinopril (Prinivil) 30 mg PO DAILY [facility] Last Admin: 02/12/17 08:38 Dose: 30 mg Lorazepam (Ativan) 0.5 mg PO Q6H PRN PRN Reason: Anxiety Last Admin: 02/11/17 16:26 Dose: 0.5 mg Prednisone (Prednisone) 40 mg PO WITHBREAKFAST [facility] Discontinued Medications Calcium Carbonate/Glycine (Tums) 1,000 mg PO ONETIME ONE Stop: 02/10/17 11:10 Last Admin: 02/10/17 12:18 Dose: 1,000 mg Fentanyl (Sublimaze) 50 mcg IVPUSH ONETIME ONE Stop: 02/09/17 22:12 Last Admin: 02/09/17 22:20 Dose: 50 mcg Sodium Chloride (Normal Saline) 1,000 mls @ 999 mls/hr IV STAT ONE Stop: 02/09/17 22:12 Last Admin: 02/09/17 21:20 Dose: 999 mls/hr Sodium Chloride (Normal Saline) 1,000 mls @ 999 mls/hr IV STAT ONE Stop: 02/09/17 22:12 Last Admin: 02/09/17 22:19 Dose: 999 mls/hr Potassium Chloride/Dextrose/Sod Cl (D5 1/2 Ns W/ 20 Meq/L Kcl) 1,000 mls @ 75 mls/hr IV ASDIRECTED [facility] Last Admin: 02/10/17 18:26 Dose: 125 mls/hr Potassium Chloride/Dextrose/Sod Cl (D5 1/2 Ns W/ 20 Meq/L Kcl) 1,000 mls @ 75 mls/hr IV ASDIRECTED [facility] Last Admin: 02/12/17 05:42 Dose: 75 mls/hr Methylprednisolone Sodium Succinate (Solu-Medrol) 125 mg IVPUSH ONETIME ONE Stop: 02/09/17 22:19 Last Admin: 02/09/17 22:32 Dose: 125 mg Methylprednisolone Sodium Succinate (Solu-Medrol) 125 mg IVPUSH Q12H [facility] Last Admin: 02/11/17 09:32 Dose: 125 mg Ondansetron HCl (Zofran) 4 mg IVPUSH ONETIME ONE Stop: 02/09/17 22:12 Last Admin: 02/09/17 22:20 Dose: 4 mg - Exam General: Alert, Oriented, Cooperative, No Acute Distress Neck: Supple, Lymphadenopathy (L tenderness and some swelling to anterior cervical lymph nodes) Lungs: Clear to Auscultation, Normal Respiratory Effort Cardiovascular: Regular Rate, Regular Rhythm, No Murmurs GI/Abdominal Exam: Normal Bowel Sounds, Soft, Non-Tender, No Organomegaly, No Distention, No Abnormal Bruit, No Mass, Pelvis Stable Extremities: Normal Inspection, Normal Range of Motion, Non-Tender, No Pedal Edema, Normal Capillary Refill Wound/Incisions: Erythema Improving (To anterior neck, improved on R, little worse to left per report of Dr. Latif who assessed yesterday. ) Neurological: No New Focal Deficit Psy/Mental Status: Alert, Normal Affect, Normal Mood - Problem List & Annotations (1) Acute on chronic renal insufficiency SNOMED Code(s): 195647670 Code(s): N28.9 - DISORDER OF KIDNEY AND URETER, UNSPECIFIED; N18.9 - CHRONIC KIDNEY DISEASE, UNSPECIFIED Status: Acute Priority: High Current Visit: Yes Onset Date: ~02/09/17 (2) Cellulitis, neck SNOMED Code(s): 12926854 Code(s): L03.221 - CELLULITIS OF NECK Status: Acute Priority: High Current Visit: Yes Onset Date: ~02/08/17 (3) Swollen neck SNOMED Code(s): 712415209 Code(s): R22.1 - LOCALIZED SWELLING, MASS AND LUMP, NECK Status: Acute Priority: High Current Visit: Yes Onset Date: ~02/08/17 (4) Edema SNOMED Code(s): 563569660, 392922279 Code(s): R60.9 - EDEMA, UNSPECIFIED Status: Acute Priority: High Current Visit: No Qualifiers: Edema type: unspecified Qualified Code(s): R60.9 - Edema, unspecified (5) HTN (hypertension) SNOMED Code(s): 93791700 Code(s): I10 - ESSENTIAL (PRIMARY) HYPERTENSION Status: Chronic Current Visit: Yes Qualifiers: Hypertension type: essential hypertension Qualified Code(s): I10 - Essential (primary) hypertension (6) Aneurysm SNOMED Code(s): 064190574 Code(s): I72.9 - ANEURYSM OF UNSPECIFIED SITE Status: Chronic Current Visit: Yes (7) History of craniotomy SNOMED Code(s): 188491153, 895943185 Code(s): Z98.890 - OTHER SPECIFIED POSTPROCEDURAL STATES Status: Chronic Current Visit: Yes (8) Hx of tracheostomy SNOMED Code(s): 769926740 Code(s): Z98.890 - OTHER SPECIFIED POSTPROCEDURAL STATES Status: Chronic Current Visit: Yes (9) Dyslipidemia SNOMED Code(s): 719823084 Code(s): E78.5 - HYPERLIPIDEMIA, UNSPECIFIED Status: Chronic Current Visit: Yes - Problem List Review Problem List Initiated/Reviewed/Updated: Yes - My Orders Last 24 Hours: My Active Orders 02/12/17 10:53 MISC TEST Routine 02/12/17 11:00 predniSONE 40 mg PO WITHBREAKFAST - Plan Plan:: This 56 year old female admitted with cellulitis and swelling to R neck 1. Cellulitis and swelling to R neck: Continues to improve, she did notice some more swelling to L today with some increase erythema and tenderness to R anterior cervical region. Continue with Clindamycin IV. Solumderol was discontinued yesterday, will start Prednisone 40 mg today and monitor. Did review last admissions consultation by Dr Vo, who recommended if this swelling returned to obtain C1INH assay, will obtain this and arrange for follow up with Dr. Vo in [address] without contrast to neck essentially negative. Retropharyngeal edema had improved greatly and no longer seen from December CT. 2. Acute on chronic renal injury: Back to baseline today, Cr 1.5 and BUN 25. Will stop IVFs and encourage good oral intake as well. Continue to monitor BMP in am. 3. HTN: Lisinopril and Norvasc have been continued. 4. Hx of aneurysm, CVA, craniotomy: Continue Keppra. VTE prophylaxis: SCDs Dispo: Possible DC in am if continued improvement.
[2017-02-12] MEDS: predniSONE 20 MG Tab PO SCH (11:04)
--- NOTE | 2017-02-12 14:50 | CT ---
EXAM DATE: 02/11/17 PATIENT'S AGE: 56 Patient: LYUBOV REED Facility: [place], [place] Site . Site : 1960 Study: CT ST Neck wo cont [id number] 12:39:00 PM Ordering Physician: Bronwyn Gordon Final Report: INDICATION: recurrent neck cellulitis, left submandibular mass HISTORY: Recurrent neck cellulitis. Left submandibular mass. COMPARISON: CT of the neck 12/25/2016. TECHNIQUE: CT of the neck without contrast. Coronal/sagittal reconstruction images. FINDINGS: Aneurysm clipping bilaterally, with craniotomy changes, and encephalomalacia extending into the middle cranial fossa. This is a stable finding. No shift of midline structures. No mass effect. No displacement of the parapharyngeal fat. Landmarks within the nasopharynx are preserved. Specifically, the fossa of Rosenmuller and torus tubarius are symmetric. Aryepiglottic folds and piriform sinuses are normal. The thyroid gland is symmetric. Atherosclerotic calcifications of the thoracic aortic arch. Superior mediastinum is otherwise within normal limits. The lung apices demonstrate minimal debris in the intrathoracic trachea. No resorptive atelectasis. No endobronchial mass. No acute airspace disease. No pneumothorax. Retro pharyngeal edema/fluid, described on the CT from 12/25/2016, has largely resolved. There is no drainable fluid collection. 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 There are nonenlarged, multiple level 1, level IIa, and level IIb lymph nodes. None meet size criteria to be considered enlarged. Floor of the mouth appear symmetric. There is no thickening of the platysma muscle. The bone windows demonstrate no lytic or blastic bone lesions. Osteophytic spurring is seen throughout the endplates. Mastoid air cells of both temporal bones are clear. Paranasal sinuses are clear where visualized. Pterygoid plates are intact. Zygomatic arches are normal. Degenerative disc disease throughout the endplates of the cervical spine on the sagittal reconstruction images. The craniocervical junction is intact. IMPRESSION: 1. Retropharyngeal edema noted previously is no longer visualized. 2. There is no submandibular mass identified. 3. Nonenlarged level I, level IIa, and level IIb lymph nodes, similar to 2016. 4. No mucosal space lesion identified on CT. 5. Superior mediastinum/lung apices are normal. Dictated by Angelito Altamirano MD @ 02/11/2017 1:05:35 PM Dictated by: Angelito Altamirano MD @ 02/11/2017 13:05:58 (Electronic Signature) Report Signed by Proxy. [facility]
[2017-02-12] MEDS: Amitriptyline 25 MG Tab PO SCH (21:36)
[2017-02-13] MEDS: Clindamycin Phosphate in D5W 300 MG in Premix Bag 1 BAG IV SCH ×4 (03:31→09:52)
[2017-02-13] MEDS: Gabapentin 300 MG Cap PO SCH (05:33)
[2017-02-13 08:19] VITALS: BP 138/91
[2017-02-13] MEDS: Lisinopril 10 MG Tab PO SCH (08:34)
[2017-02-13] MEDS: predniSONE 20 MG Tab PO SCH (08:34)
[2017-02-13] MEDS: levETIRAcetam 500 MG Tab PO SCH (08:34)
[2017-02-13] MEDS: amLODIPine 5 MG Tab PO SCH (08:34)
--- NOTE | 2017-02-13 09:32 | PCM.DCSUM1 ---
Discharge Summary - Hospital Course Brief History: This 56 year old female had onset of mild burning feeling in the center of her neck 2 days prior to admission. She said that her neck then became more swollen and she had increasing problems swallowing. She became worried that perhaps her throat would become swollen shut, so she came to the emergency room. She reports her tongue had not started to swell yet. She had a previous episode in mid December of this year where the swelling occurred in the same way. At that time her tongue had become very swollen and she had a much more swallowing difficulty. She was admitted at that time and placed on IV clindamycin and on Solu-Medrol. Her swelling improved and the ear nose and throat doctor was consulted and she performed nasopharyngoscopy, which did not show a specific lesion to explain why the swelling had started. She has not had fever. She reports that one of her left lower molars is somewhat sensitive has not had any gum swelling. She reports that she has not noticed any painful or swollen areas under her tongue or any swollen glands prior to the neck swelling happening. She has had no ear pain and no throat soreness. She has had clear nasal drainage and no coughing. 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 There is a note that she has type 2 diabetes but she has not been on medication for that. She had a burst intracranial aneurysm operated on in 2015 in [place] where she lives, and a second aneurysm was found at that time on the opposite side of her head and that aneurysm was clipped in July of this year. 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 - Discharge Data Discharge Date: 02/13/17 Discharge Disposition: Home, Self-Care 01 Condition: Good - Discharge Diagnosis/Problem(s) (1) Acute on chronic renal insufficiency SNOMED Code(s): 254421781 ICD Code: N28.9 - DISORDER OF KIDNEY AND URETER, UNSPECIFIED; N18.9 - CHRONIC KIDNEY DISEASE, UNSPECIFIED Status: Acute Priority: High Current Visit: Yes Onset Date: ~02/09/17 (2) Cellulitis, neck SNOMED Code(s): 97014332 ICD Code: L03.221 - CELLULITIS OF NECK Status: Acute Priority: High Current Visit: Yes Onset Date: ~02/08/17 (3) Swollen neck SNOMED Code(s): 381154900 ICD Code: R22.1 - LOCALIZED SWELLING, MASS AND LUMP, NECK Status: Acute Priority: High Current Visit: Yes Onset Date: ~02/08/17 (4) Edema SNOMED Code(s): 001474395, 861872519 ICD Code: R60.9 - EDEMA, UNSPECIFIED Status: Acute Priority: High Current Visit: No Qualifiers: Edema type: unspecified Qualified Code(s): R60.9 - Edema, unspecified (5) HTN (hypertension) SNOMED Code(s): 60273204 ICD Code: I10 - ESSENTIAL (PRIMARY) HYPERTENSION Status: Chronic Current Visit: Yes Qualifiers: Hypertension type: essential hypertension Qualified Code(s): I10 - Essential (primary) hypertension (6) Aneurysm SNOMED Code(s): 014459419 ICD Code: I72.9 - ANEURYSM OF UNSPECIFIED SITE Status: Chronic Current Visit: Yes (7) History of craniotomy SNOMED Code(s): 455915750, 959699210 ICD Code: Z98.890 - OTHER SPECIFIED POSTPROCEDURAL STATES Status: Chronic Current Visit: Yes (8) Hx of tracheostomy SNOMED Code(s): 933317219 ICD Code: Z98.890 - OTHER SPECIFIED POSTPROCEDURAL STATES Status: Chronic Current Visit: Yes (9) Dyslipidemia SNOMED Code(s): 713287131 ICD Code: E78.5 - HYPERLIPIDEMIA, UNSPECIFIED Status: Chronic Current Visit: Yes - Patient Instructions Diet: Heart Healthy Diet Activity: No Strenuous Activities Showering/Bathing: May Shower Notify Provider of: Fever, Increased Pain, Swelling and Redness, Drainage, Nausea and/or Vomiting - Discharge Plan Prescriptions/Med Rec: Clindamycin HCl 300 mg PO QID #28 capsule Prednisone [IJD: predniSONE] 40 mg PO WITHBREAKFAST #10 tablet Home Medications: Home Meds LORazepam 1 tab PO BID PRN 04/20/14 [History] Amitriptyline HCl 75 mg PO BEDTIME 12/25/16 [History] Docusate Sodium [Colace] 100 mg PO BID PRN 12/25/16 [History] Gabapentin [Neurontin] 600 mg PO QID 12/25/16 [History] Lisinopril 30 mg PO DAILY 12/25/16 [History] Rosuvastatin [Crestor] 10 mg PO DAILY 12/25/16 [History] amLODIPine Besylate [Amlodipine Besylate] 10 mg PO DAILY 12/25/16 [History] levETIRAcetam [Keppra] 500 mg PO BID 12/25/16 [History] Clindamycin HCl 300 mg PO QID #28 capsule 02/13/17 [Rx] Prednisone [IJD: predniSONE] 40 mg PO WITHBREAKFAST #10 tablet 02/13/17 [Rx] Patient Handouts: Clindamycin capsules, Cellulitis, Adult, [id number], Prednisone tablets Referrals: Lore Vo MD [Physician] - 02/20/17 1:30 pm () - Discharge Summary/Plan Comment DC Time >30 min.: No Discharge Summary/Plan Comment: Discharge Diagnoses: Neck swelling and cellulitis-improving HTN Hx brain aneurysm with clipping Hx tracheostomy Hx CVA Britta was admitted and treated with Clindamyin and Solumedrol for cellulitis and swelling. She continued to improve during her stay and swelling improved. Upon review of previous admission, Dr. Vo had suggested if this were to return to obtain C1INH assay. This was obtained during her stay and is currently pending. We will arrange follow up with Dr. Vo next week to review labwork and follow up. She has PCP in [place], which she will be returning to [place] mid March along with a host of speciality appointments including Neurology. I will discharge her home on 5 days of Prednisone and Clindaymycin 300 MG QID for a total of 10 day course. She is to return to clinic or ED if concerns should arise. Follow up as arranged. - General Info Date of Service: 02/13/17 Admission Dx/Problem (Free Text: Cellulitis to head and neck Subjective Update: Doing much better today, does not feel swollen in her neck and the redness has decreased. She is swallowing and eating ok. Denies any chest pain or SOB. Has been ambulating a lot in the hallway. Ready for discharge today. Functional Status: Reports: Pain Controlled, Tolerating Diet, Ambulating, Urinating - Review of Systems General: Reports: No Symptoms. Denies: Fever HEENT: Reports: No Symptoms. Denies: Headaches, Sore Throat, Visual Changes Pulmonary: Reports: No Symptoms. Denies: Shortness of Breath, Cough, Sputum Cardiovascular: Reports: No Symptoms. Denies: Chest Pain, Palpitations, Edema Gastrointestinal: Reports: No Symptoms. Denies: Abdominal Pain, Diarrhea, Nausea, Vomiting Genitourinary: Reports: No Symptoms. Denies: Dysuria, Frequency, Burning Musculoskeletal: Reports: No Symptoms Skin: Reports: No Symptoms Neurological: Reports: No Symptoms Psychiatric: Reports: No Symptoms - Patient Data Vitals - Most Recent: Last Vital Signs Temp 97.9 F 02/13/17 08:00 Pulse 85 02/13/17 08:00 Resp 20 02/13/17 08:00 BP 138/91 H 02/13/17 08:34 Pulse Ox 95 02/13/17 08:00 Weight - Most Recent: 91.6 kg I&O - Last 24 hours: Intake & Output 02/12/17 02/13/17 02/13/17 22:59 06:59 14:59 Intake Total 1730 650 Output Total 3300 1900 Balance -1570 -1250 Lab Results - Last 24 hrs: Laboratory Results - last 24 hr 02/13/17 02/13/17 Range/Units 04:50 04:50 WBC 11.84 H (4.0-11.0) K/uL RBC 3.80 L (4.30-5.90) M/uL Hgb 11.4 L (12.0-16.0) g/dL Hct 34.9 L (36.0-46.0) % MCV 91.8 (80.0-98.0) fL MCH 30.0 (27.0-32.0) pg MCHC 32.7 (31.0-37.0) g/dL RDW Std Deviation 48.5 (28.0-62.0) fl RDW Coeff of Yessenia 14 (11.0-15.0) % Plt Count 276 (150-400) K/uL MPV 9.50 (7.40-12.00) fL Neut % (Auto) 61.0 (48.0-80.0) % Lymph % (Auto) 31.8 (16.0-40.0) % [place] % (Auto) 7.0 (0.0-15.0) % Eos % (Auto) 0.2 (0.0-7.0) % Baso % (Auto) 0.0 (0.0-1.5) % Neut # (Auto) 7.2 H (1.4-5.7) K/uL Lymph # (Auto) 3.8 H (0.6-2.4) K/uL [place] # (Auto) 0.8 (0.0-0.8) K/uL Eos # (Auto) 0.0 (0.0-0.7) K/uL Baso # (Auto) 0.0 (0.0-0.1) K/uL Nucleated RBC % 0.0 /100WBC Nucleated RBCs # 0 K/uL Sodium 143 (136-146) mmol/L Potassium 4.4 (3.5-5.1) mmol/L Chloride 108 (98-110) mmol/L Carbon Dioxide 25 (21-31) mmol/L BUN 24 H (6.0-23.0) mg/dL Creatinine 1.2 (0.6-1.5) mg/dL Est Cr Clr Drug Dosing 47.84 mL/min Estimated GFR (MDRD) 46.1 ml/min Glucose 83 (60-110) mg/dL Calcium 8.6 L (8.8-10.8) mg/dL Med Orders - Current: Current Medications Amitriptyline HCl (Elavil) 75 mg PO BEDTIME [facility] Last Admin: 02/12/17 21:36 Dose: 75 mg Amlodipine Besylate (Norvasc) 10 mg PO DAILY [facility] Last Admin: 02/13/17 08:34 Dose: 10 mg Gabapentin (Neurontin) 600 mg PO QID [facility] Hydromorphone HCl (Dilaudid) 0.5 - 1 mg IVPUSH Q3H PRN PRN Reason: Pain Clindamycin Phosphate 300 mg/ (Premix) 50 mls @ 150 mls/hr IV Q6H [facility] Last Admin: 02/13/17 03:31 Dose: 150 mls/hr Levetiracetam (Keppra) 500 mg PO BID [facility] Last Admin: 02/13/17 08:34 Dose: 500 mg Lisinopril (Prinivil) 30 mg PO DAILY [facility] Last Admin: 02/13/17 08:34 Dose: 30 mg Lorazepam (Ativan) 0.5 mg PO Q6H PRN PRN Reason: Anxiety Last Admin: 02/11/17 16:26 Dose: 0.5 mg Prednisone (Prednisone) 40 mg PO WITHBREAKFAST [facility] Last Admin: 02/13/17 08:34 Dose: 40 mg Discontinued Medications Calcium Carbonate/Glycine (Tums) 1,000 mg PO ONETIME ONE Stop: 02/10/17 11:10 Last Admin: 02/10/17 12:18 Dose: 1,000 mg Fentanyl (Sublimaze) 50 mcg IVPUSH ONETIME ONE Stop: 02/09/17 22:12 Last Admin: 02/09/17 22:20 Dose: 50 mcg Gabapentin (Neurontin) 600 mg PO TID [facility] Last Admin: 02/13/17 05:33 Dose: 600 mg Sodium Chloride (Normal Saline) 1,000 mls @ 999 mls/hr IV STAT ONE Stop: 02/09/17 22:12 Last Admin: 02/09/17 21:20 Dose: 999 mls/hr Sodium Chloride (Normal Saline) 1,000 mls @ 999 mls/hr IV STAT ONE Stop: 02/09/17 22:12 Last Admin: 02/09/17 22:19 Dose: 999 mls/hr Potassium Chloride/Dextrose/Sod Cl (D5 1/2 Ns W/ 20 Meq/L Kcl) 1,000 mls @ 75 mls/hr IV ASDIRECTED [facility] Last Admin: 02/10/17 18:26 Dose: 125 mls/hr Potassium Chloride/Dextrose/Sod Cl (D5 1/2 Ns W/ 20 Meq/L Kcl) 1,000 mls @ 75 mls/hr IV ASDIRECTED [facility] Last Admin: 02/12/17 05:42 Dose: 75 mls/hr Methylprednisolone Sodium Succinate (Solu-Medrol) 125 mg IVPUSH ONETIME ONE Stop: 02/09/17 22:19 Last Admin: 02/09/17 22:32 Dose: 125 mg Methylprednisolone Sodium Succinate (Solu-Medrol) 125 mg IVPUSH Q12H [facility] Last Admin: 02/11/17 09:32 Dose: 125 mg Ondansetron HCl (Zofran) 4 mg IVPUSH ONETIME ONE Stop: 02/09/17 22:12 Last Admin: 02/09/17 22:20 Dose: 4 mg - Exam Quality Assessment: Denies: Supplemental Oxygen General: Reports: Alert, Oriented, Cooperative Neck: Reports: Supple, No Thyromegaly, Other (trace erythema to anterior neck, but much improved from yesterday. No obvious swelling noted, and no obvious lymphadenopathy.). Denies: Lymphadenopathy Lungs: Reports: Clear to Auscultation, Normal Respiratory Effort Cardiovascular: Reports: Regular Rate, Regular Rhythm GI/Abdominal Exam: Normal Bowel Sounds, Soft, Non-Tender, No Organomegaly, No Distention, No Abnormal Bruit, No Mass, Pelvis Stable Back Exam: Reports: Normal Inspection, Full Range of Motion Skin: Reports: Warm, Dry Wound/Incisions: Reports: Erythema Improving (anterior neck) Neurological: Reports: No New Focal Deficit Psy/Mental Status: Reports: Alert, Normal Affect, Normal Mood *Q Meaningful Use (DIS) - VTE *Q VTE Criteria *Q: - Stroke *Q Stroke Criteria *Q: - AMI *Q AMI Criteria *Q:
[2017-02-13] MEDS ORDERED: Gabapentin 300 MG Cap PO SCH (12:00)
== END 2017-02-13 11:30 | disposition home or self-care (01) | DRG 603 ==
LOC: MW.ED 19:31 → MW.MS 22:34 → OBSVTOIN 02-11 12:01 → MW.MS 02-11 12:01
PROVIDERS: ADMIT Family Medicine; ATTEND Family Medicine
DX: L03.221 Cellulitis of neck (principal); R22.1 Localized swelling, mass and lump, neck; E78.5 Hyperlipidemia, unspecified; I12.9 Hypertensive chronic kidney disease with stage 1 through stage 4 chronic kidney disease, or unspecified chronic kidney disease; N18.9 Chronic kidney disease, unspecified; F41.9 Anxiety disorder, unspecified; F17.200 Nicotine dependence, unspecified, uncomplicated; Z88.0 Allergy status to penicillin; Z88.2 Allergy status to sulfonamides; Z79.899 Other long term (current) drug therapy
CPT/HCPCS: 36415; 70490; 70490-26; 80048; 80053; 83036; 85025; 85652; 86140; 86160; 96361; 96365; 96366; 96374; 96375; 99285; 99285-25; A9270-GY; G0378; J2405; J2930; J3010; J3480; J7040

== ENCOUNTER 2017-02-26 17:15 | Observation (INO) | payer MEDICAID ==
[2017-02-26] MEDS ORDERED: Sodium Chloride 0.9% 10 ML Syringe FLUSH PRN (18:10)
[2017-02-26] MEDS ORDERED: Sodium Chloride 0.9% 2.5 ML Syringe FLUSH PRN (18:10)
[2017-02-26] MEDS ORDERED: Morphine 2 MG/ML Syringe IVPUSH ONE (18:14)
[2017-02-26] MEDS ORDERED: Ondansetron 4 MG/2 ML SDV IVPUSH ONE (18:14)
[2017-02-26] MEDS ORDERED: Sodium Chloride 0.9% 1,000 ML IV SCH (18:15)
--- NOTE | 2017-02-26 18:19 | EDM.PDOC ---
ED HPI GENERAL MEDICAL PROBLEM - General Chief Complaint: Upper Extremity Injury/Pain Stated Complaint: PAIN LT ARM Time Seen by Provider: 02/26/17 17:44 - History of Present Illness INITIAL COMMENTS - FREE TEXT/NARRATIVE: HISTORY AND PHYSICAL: History of present illness: Patient's 56-year-old white female history of prior craniotomy for ruptured aneurysm/CVA who presents with concern of left upper extremity pain this is primarily her hand and forearm she states the pain is to the degree that it does feel weaker this is been kind 1 day she denies any trauma denies nausea vomiting fever chills denies any other numbness weakness denies chest pain shortness breath or other concern. Review of systems: As per history of present illness and below otherwise all systems reviewed and negative. Past medical history: As per history of present illness and as reviewed below otherwise noncontributory. Surgical history: As per history of present illness and as reviewed below otherwise noncontributory. Social history: No reported history of drug or alcohol abuse. Family history: As per history of present illness and as reviewed below otherwise noncontributory. Physical exam: HEENT: Atraumatic, normocephalic, pupils reactive, negative for conjunctival pallor or scleral icterus, mucous membranes moist, throat clear, neck supple, nontender, trachea midline. Lungs: Clear to auscultation, breath sounds equal bilaterally, chest nontender. Heart: S1S2, regular, negative for clicks, rubs, or JVD. Abdomen: Soft, nondistended, nontender. Negative for masses or hepatosplenomegaly. Negative for costovertebral tenderness. Pelvis: Stable nontender. Genitourinary: Deferred. Rectal: Deferred. Extremities: Atraumatic, patient has tenderness to palpation of her distal forearm and dorsal aspect of her hand she is limited range of motion and decreased answerer strength seemingly secondary to pain there is no sensory deficits appreciated neurovascular exam is unremarkable Neuro: Awake, alert, oriented. Cranial nerves II through XII unremarkable. Cerebellum unremarkable. Motor and sensory unremarkable throughout. Exam nonfocal. Diagnostics: CBC CMP troponin PT/INR EKG chest x-ray CT brain Therapeutics: IV O2 monitor morphine sulfate 2 mg IV Zofran 4 mg IV Impression: #1 history of CVA #2 left upper extremity pain/weakness Definitive disposition and diagnosis as appropriate pending reevaluation and review of above. Left Arm Pain Score (Numeric/FACES): 9 - Related Data Allergies Allergy/AdvReac Type Severity Reaction Status Date / Time Penicillins Allergy Cannot Verified 02/26/17 17:38 Remember Sulfa (Sulfonamide Allergy Nausea and Verified 02/26/17 17:38 Antibiotics) Vomiting Home Meds: Home Meds LORazepam 1 tab PO BID PRN 04/20/14 [History] Amitriptyline HCl 75 mg PO BEDTIME 12/25/16 [History] Docusate Sodium [Colace] 100 mg PO BID PRN 12/25/16 [History] Gabapentin [Neurontin] 600 mg PO QID 12/25/16 [History] Lisinopril 30 mg PO DAILY 12/25/16 [History] Rosuvastatin [Crestor] 10 mg PO DAILY 12/25/16 [History] amLODIPine Besylate [Amlodipine Besylate] 10 mg PO DAILY 12/25/16 [History] levETIRAcetam [Keppra] 500 mg PO BID 12/25/16 [History] Clindamycin HCl 300 mg PO QID #28 capsule 02/13/17 [Rx] Prednisone [IJD: predniSONE] 40 mg PO WITHBREAKFAST #10 tablet 02/13/17 [Rx] Past Medical History - Past Health History Medical/Surgical History: Denies Medical/Surgical History HEENT History: Reports: None Cardiovascular History: Reports: Aneurysm, High Cholesterol, Hypertension Respiratory History: Reports: Intubation, Previous Gastrointestinal History: Reports: Cholelithiasis Genitourinary History: Reports: Other (See Below) Other Genitourinary History: only one kidney functioning 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: Musculoskeletal History: Reports: None Neurological History: Reports: Cerebral Aneurysms, CVA Psychiatric History: Reports: Anxiety Endocrine/Metabolic History: Reports: None Hematologic History: Reports: None Immunologic History: Reports: None Oncologic (Cancer) History: Reports: None Dermatologic History: Reports: None - Infectious Disease History Infectious Disease History: Reports: Chicken Pox, Other (See Below) (Recurrent head and neck infection of uncertain source) - Past Surgical History Head Surgeries/Procedures: Reports: Craniotomy HEENT Surgical History: Reports: Tonsillectomy Cardiovascular Surgical History: Reports: Aneurysm Respiratory Surgical History: Reports: Tracheostomy GI Surgical History: Reports: Appendectomy, Cholecystectomy Other GI Surgeries/Procedures: peg tube Female Surgical History: Reports: Section Neurological Surgical History: Reports: None Musculoskeletal Surgical History: Reports: Arthroscopic Knee, ORIF, Other (See Below) Other Musculoskeletal Surgeries/Procedures:: left ankle Social & Family History - Family History Family Medical History: Noncontributory HEENT: Reports: None Cardiac: Reports: Heart Valve Replacement, [place] Respiratory: Reports: None GI: Reports: None : Reports: None Musculoskeletal: Reports: Arthritis Neurological: Reports: None Psychiatric: Reports: None Endocrine/Metabolic: Reports: Diabetes, type II Hematologic: Reports: B12 Deficiency Immunologic: Reports: None Dermatologic: Reports: None Oncologic: Reports: Hodgkin's Lymphoma, Other (See Below) Other Oncologic Family History: throat - Tobacco Use Smoking Status *Q: Current Some Day Smoker Years of Tobacco use: 40 Packs/Tins Daily: 0.5 Used Tobacco, but Quit: No Second Hand Smoke Exposure: No - Caffeine Use Caffeine Use: Reports: None Caffeine Use Comment: 1cup/day - Alcohol Use Days Per Week of Alcohol Use: 0 - Recreational Drug Use Recreational Drug Use: No Review of Systems - Review of Systems Review Of Systems: ROS reveals no pertinent complaints other than HPI. ED EXAM, GENERAL - Physical Exam Exam: See Below (See dictation) Course - Vital Signs Last Recorded V/S: Last Vital Signs Temp 36.1 C 02/26/17 17:34 Pulse 85 02/26/17 17:34 Resp 16 02/26/17 17:34 BP 133/76 02/26/17 17:34 Pulse Ox 98 02/26/17 17:34 - Orders/Labs/Meds Orders: Active Orders 24 hr Category Date Time Status Cardiac Monitoring [RC] . DIRECTED Care 02/26/17 18:05 Active EKG Documentation Completion [RC] STAT Care 02/26/17 18:05 Active Pulse Oximetry [RC] ASDIRECTED Care 02/26/17 18:13 Active Chest 1V Frontal [CR] Stat Exams 02/26/17 18:14 Taken Head wo Cont [CT] Stat Exams 02/26/17 18:14 Taken Sodium Chloride 0.9% [Normal Saline] 1,000 ml Med 02/26/17 18:15 Active IV STAT Sodium Chloride 0.9% [Saline Flush] Med 02/26/17 18:10 Active 10 ml FLUSH ASDIRECTED PRN Sodium Chloride 0.9% [Saline Flush] Med 02/26/17 18:10 Active 2.5 ml FLUSH ASDIRECTED PRN Saline Lock Insert [OM.PC] Stat Oth 02/26/17 18:05 Ordered Medication Orders Sodium Chloride (Normal Saline) 1,000 mls @ 125 mls/hr IV STAT SERINA Last Admin: 02/26/17 18:30 Dose: 125 mls/hr Sodium Chloride (Saline Flush) 10 ml FLUSH ASDIRECTED PRN PRN Reason: Keep Vein Open Last Admin: 02/26/17 18:52 Dose: 10 ml Sodium Chloride (Saline Flush) 2.5 ml FLUSH ASDIRECTED PRN PRN Reason: Keep Vein Open Last Admin: 02/26/17 18:52 Dose: 2.5 ml Labs: Laboratory Tests 02/26/17 02/26/17 02/26/17 Range/Units 18:25 18:25 18:25 WBC 8.59 (4.0-11.0) K/uL RBC 3.30 L (4.30-5.90) M/uL Hgb 10.1 L (12.0-16.0) g/dL Hct 30.3 L (36.0-46.0) % MCV 91.8 (80.0-98.0) fL MCH 30.6 (27.0-32.0) pg MCHC 33.3 (31.0-37.0) g/dL RDW Std Deviation 51.1 (28.0-62.0) fl RDW Coeff of Yessenia 15 (11.0-15.0) % Plt Count 248 (150-400) K/uL MPV 9.30 (7.40-12.00) fL Neut % (Auto) 54.0 (48.0-80.0) % Lymph % (Auto) 35.5 (16.0-40.0) % [place] % (Auto) 5.9 (0.0-15.0) % Eos % (Auto) 4.4 (0.0-7.0) % Baso % (Auto) 0.2 (0.0-1.5) % Neut # (Auto) 4.6 (1.4-5.7) K/uL Lymph # (Auto) 3.1 H (0.6-2.4) K/uL [place] # (Auto) 0.5 (0.0-0.8) K/uL Eos # (Auto) 0.4 (0.0-0.7) K/uL Baso # (Auto) 0.0 (0.0-0.1) K/uL Nucleated RBC % 0.0 /100WBC Nucleated RBCs # 0 K/uL INR 0.93 (0.86-1.11) Sodium 140 (136-146) mmol/L Potassium 4.3 (3.5-5.1) mmol/L Chloride 107 (98-110) mmol/L Carbon Dioxide 24 (21-31) mmol/L BUN 23 (6.0-23.0) mg/dL Creatinine 1.1 (0.6-1.5) mg/dL Est Cr Clr Drug Dosing 52.19 mL/min Estimated GFR (MDRD) 51.0 ml/min Glucose 81 (60-110) mg/dL Calcium 9.2 (8.8-10.8) mg/dL Total Bilirubin 0.3 (0.1-1.5) mg/dL AST 11 (5-40) IU/L ALT 17 (8-54) IU/L Alkaline Phosphatase 58 (40-150) Troponin I (0.0-0.29) NG/ML Total Protein 6.9 (6.0-8.0) g/dL Albumin 3.7 (3.5-5.0) g/dL Globulin 3.2 (2.0-3.5) g/dL Albumin/Globulin Ratio 1.2 L (1.3-2.8) 02/26/17 Range/Units 18:25 WBC (4.0-11.0) K/uL RBC (4.30-5.90) M/uL Hgb (12.0-16.0) g/dL Hct (36.0-46.0) % MCV (80.0-98.0) fL MCH (27.0-32.0) pg MCHC (31.0-37.0) g/dL RDW Std Deviation (28.0-62.0) fl RDW Coeff of Yessenia (11.0-15.0) % Plt Count (150-400) K/uL MPV (7.40-12.00) fL Neut % (Auto) (48.0-80.0) % Lymph % (Auto) (16.0-40.0) % [place] % (Auto) (0.0-15.0) % Eos % (Auto) (0.0-7.0) % Baso % (Auto) (0.0-1.5) % Neut # (Auto) (1.4-5.7) K/uL Lymph # (Auto) (0.6-2.4) K/uL [place] # (Auto) (0.0-0.8) K/uL Eos # (Auto) (0.0-0.7) K/uL Baso # (Auto) (0.0-0.1) K/uL Nucleated RBC % /100WBC Nucleated RBCs # K/uL INR (0.86-1.11) Sodium (136-146) mmol/L Potassium (3.5-5.1) mmol/L Chloride (98-110) mmol/L Carbon Dioxide (21-31) mmol/L BUN (6.0-23.0) mg/dL Creatinine (0.6-1.5) mg/dL Est Cr Clr Drug Dosing mL/min Estimated GFR (MDRD) ml/min Glucose (60-110) mg/dL Calcium (8.8-10.8) mg/dL Total Bilirubin (0.1-1.5) mg/dL AST (5-40) IU/L ALT (8-54) IU/L Alkaline Phosphatase (40-150) Troponin I < 0.10 (0.0-0.29) NG/ML Total Protein (6.0-8.0) g/dL Albumin (3.5-5.0) g/dL Globulin (2.0-3.5) g/dL Albumin/Globulin Ratio (1.3-2.8) Meds: Medications Generic Name Dose Route Start Last Admin Trade Name Freq PRN Reason Stop Dose Admin Sodium Chloride 1,000 mls @ 125 mls/hr 02/26/17 18:15 02/26/17 18:30 Normal Saline IV 125 mls/hr STAT SERINA Administration Sodium Chloride 10 ml 02/26/17 18:10 02/26/17 18:52 Saline Flush FLUSH 10 ml ASDIRECTED PRN Administration Keep Vein Open Sodium Chloride 2.5 ml 02/26/17 18:10 02/26/17 18:52 Saline Flush FLUSH 2.5 ml ASDIRECTED PRN Administration Keep Vein Open Discontinued Medications Generic Name Dose Route Start Last Admin Trade Name Ole PRN Reason Stop Dose Admin Morphine Sulfate 2 mg 02/26/17 18:14 02/26/17 18:34 Morphine IVPUSH 02/26/17 18:15 2 mg ONETIME ONE Administration Ondansetron HCl 4 mg 02/26/17 18:14 02/26/17 18:32 Zofran IVPUSH 02/26/17 18:15 4 mg ONETIME ONE Administration Departure - Departure Time of Disposition: 19:13 Disposition: Refer to Observation Condition: Good Clinical Impression: Arm pain, Arm weakness, History of CVA (cerebrovascular accident) - Discharge Information Forms: ED Department Discharge - My Orders Last 24 Hours: My Active Orders 02/26/17 18:05 Cardiac Monitoring [RC] . DIRECTED EKG Documentation Completion [RC] STAT Saline Lock Insert [OM.PC] Stat 02/26/17 18:10 Sodium Chloride 0.9% [Saline Flush] 10 ml FLUSH ASDIRECTED PRN Sodium Chloride 0.9% [Saline Flush] 2.5 ml FLUSH ASDIRECTED PRN 02/26/17 18:13 Pulse Oximetry [RC] ASDIRECTED 02/26/17 18:14 Chest 1V Frontal [CR] Stat Head wo Cont [CT] Stat 02/26/17 18:15 Sodium Chloride 0.9% [Normal Saline] 1,000 ml IV STAT - Assessment/Plan Last 24 Hours: My Active Orders 02/26/17 18:05 Cardiac Monitoring [RC] . DIRECTED EKG Documentation Completion [RC] STAT Saline Lock Insert [OM.PC] Stat 02/26/17 18:10 Sodium Chloride 0.9% [Saline Flush] 10 ml FLUSH ASDIRECTED PRN Sodium Chloride 0.9% [Saline Flush] 2.5 ml FLUSH ASDIRECTED PRN 02/26/17 18:13 Pulse Oximetry [RC] ASDIRECTED 02/26/17 18:14 Chest 1V Frontal [CR] Stat Head wo Cont [CT] Stat 02/26/17 18:15 Sodium Chloride 0.9% [Normal Saline] 1,000 ml IV STAT
[2017-02-26] MEDS ORDERED: Colchicine 0.6 MG Tab PO SCH (20:15)
[2017-02-26] MEDS ORDERED: Ondansetron 4 MG Tab.DIS PO PRN (20:15)
[2017-02-26] MEDS ORDERED: Bisacodyl 5 MG Tab PO PRN (20:15)
[2017-02-26] MEDS ORDERED: Temazepam 15 MG Cap PO PRN (20:15)
[2017-02-26] MEDS ORDERED: Acetaminophen 325 MG Tab PO PRN (20:15)
--- NOTE | 2017-02-26 20:15 | PCM.HP ---
H&P History of Present Illness - General Date of Service: 02/26/17 Admit Problem/Dx: Admission Diagnosis/Problem Admission Diagnosis/Problem Weakness of hand - History of Present Illness Initial Comments - Free Text/Narative: she came to the ED today with L wrist pain. She had onset about 1 pm today. She is uncertain what caused it. Her wondered if it might be gout. No trauma. She has a prior history of intracranial bleeding secondary to aneurysm and is worried about something more serious. Left Arm Pain Score (Numeric/FACES): 8 - Related Data Allergies/Adverse Reactions: Allergies Allergy/AdvReac Type Severity Reaction Status Date / Time Penicillins Allergy Cannot Verified 02/26/17 17:38 Remember Sulfa (Sulfonamide Allergy Nausea and Verified 02/26/17 17:38 Antibiotics) Vomiting Home Medications: Home Meds LORazepam 1 tab PO BID PRN 04/20/14 [History] Amitriptyline HCl 75 mg PO BEDTIME 12/25/16 [History] Docusate Sodium [Colace] 100 mg PO BID PRN 12/25/16 [History] Gabapentin [Neurontin] 600 mg PO QID 12/25/16 [History] Lisinopril 30 mg PO DAILY 12/25/16 [History] Rosuvastatin [Crestor] 10 mg PO DAILY 12/25/16 [History] amLODIPine Besylate [Amlodipine Besylate] 10 mg PO DAILY 12/25/16 [History] levETIRAcetam [Keppra] 500 mg PO BID 12/25/16 [History] Clindamycin HCl 300 mg PO QID #28 capsule 02/13/17 [Rx] Prednisone [IJD: predniSONE] 40 mg PO WITHBREAKFAST #10 tablet 02/13/17 [Rx] Past Medical History - Past Health History Medical/Surgical History: Denies Medical/Surgical History HEENT History: Reports: None Cardiovascular History: Reports: Aneurysm, High Cholesterol, Hypertension Respiratory History: Reports: Intubation, Previous Gastrointestinal History: Reports: Cholelithiasis. 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 Denies: Diabetes, Type II Hematologic History: Reports: None Immunologic History: Reports: None Oncologic (Cancer) History: Reports: None Dermatologic History: Reports: None - Infectious Disease History Infectious Disease History: Reports: Chicken Pox, Other (See Below) (Recurrent head and neck infection of uncertain source) - Past Surgical History Head Surgeries/Procedures: Reports: Craniotomy HEENT Surgical History: Reports: Tonsillectomy Cardiovascular Surgical History: Reports: Aneurysm Respiratory Surgical History: Reports: Tracheostomy GI Surgical History: Reports: Appendectomy, Cholecystectomy Other GI Surgeries/Procedures: peg tube Female Surgical History: Reports: Section Neurological Surgical History: Reports: None Musculoskeletal Surgical History: Reports: Arthroscopic Knee, ORIF, Other (See Below) Other Musculoskeletal Surgeries/Procedures:: left ankle Social & Family History - Family History Family Medical History: Noncontributory HEENT: Reports: None Cardiac: Reports: Heart Valve Replacement, [place] Respiratory: Reports: None GI: Reports: None : Reports: None Musculoskeletal: Reports: Arthritis Neurological: Reports: None Psychiatric: Reports: None Endocrine/Metabolic: Reports: Diabetes, type II Hematologic: Reports: B12 Deficiency Immunologic: Reports: None Dermatologic: Reports: None Oncologic: Reports: Hodgkin's Lymphoma, Other (See Below) Other Oncologic Family History: throat - Tobacco Use Smoking Status *Q: Current Some Day Smoker Years of Tobacco use: 40 Packs/Tins Daily: 0.5 Used Tobacco, but Quit: No Second Hand Smoke Exposure: No - Caffeine Use Caffeine Use: Reports: None Caffeine Use Comment: 1cup/day - Alcohol Use Days Per Week of Alcohol Use: 0 - Recreational Drug Use Recreational Drug Use: No H&P Review of Systems - Review of Systems: Review Of Systems: See Below General: Denies: Fever, Chills Pulmonary: Denies: Shortness of Breath, Cough, Sputum Cardiovascular: Denies: Chest Pain, Palpitations Gastrointestinal: Denies: Abdominal Pain, Black Stool, Bloody Stool, Difficulty Swallowing, Hematemesis Genitourinary: Denies: Dysuria, Frequency, Burning Psychiatric: Denies: Confusion, Agitation Exam - Exam Exam: See Below - Vital Signs Vital Signs: Last Vital Signs Temp 96.9 F 02/26/17 17:34 Pulse 87 02/26/17 20:06 Resp 16 02/26/17 20:06 BP 140/96 H 02/26/17 20:06 Pulse Ox 98 08/21/17 20:06 Weight: 85.275 kg - Exam General: Alert, Oriented, Cooperative HEENT: EOMI Neck: Supple, Trachea Midline Lungs: Clear to Auscultation, Normal Respiratory Effort Cardiovascular: Regular Rate, Regular Rhythm. No: Systolic Murmur, Diastolic Murmur GI/Abdominal Exam: Soft, Non-Tender Extremities: No Pedal Edema Neurological: Normal Speech Neuro Extensive - Mental Status: Alert, Oriented x3 Neuro Extensive - Motor, Sensory, Reflexes: No: Facial palsy (L), Facial Palsy ( R) Physical Exam Comments:: slight warmth over left wrist with moderate swelling and marked tenderness including marked tenderness with passive motion. - Patient Data Result Diagrams: 02/26/17 18:25 02/26/17 18:25 *Q Meaningful Use (ADM) - VTE *Q VTE Criteria *Q: - Stroke *Q Stroke Criteria *Q: - AMI *Q AMI Criteria *Q: - Problem List (1) Acute gout SNOMED Code(s): 33449567, 19775117 ICD Code: M10.9 - GOUT, UNSPECIFIED Status: Acute Current Visit: Yes (2) History of intracranial aneurysm SNOMED Code(s): 474894949 ICD Code: Z86.79 - PERSONAL HISTORY OF OTHER DISEASES OF THE CIRCULATORY SYSTEM Status: Acute Current Visit: Yes Problem List Initiated/Reviewed/Updated: Yes Orders Last 24hrs: Medication Orders Sodium Chloride (Normal Saline) 1,000 mls @ 125 mls/hr IV STAT SERINA Last Admin: 02/26/17 18:30 Dose: 125 mls/hr Sodium Chloride (Saline Flush) 10 ml FLUSH ASDIRECTED PRN PRN Reason: Keep Vein Open Last Admin: 02/26/17 18:52 Dose: 10 ml Sodium Chloride (Saline Flush) 2.5 ml FLUSH ASDIRECTED PRN PRN Reason: Keep Vein Open Last Admin: 02/26/17 18:52 Dose: 2.5 ml Assessment/Plan Comment:: Will observe in the hospital for now as she is especially worried about a more serious diagnosis in light of her prior history of intracranial bleeding. see orders. Alexander Nash MD
[2017-02-26] MEDS ORDERED: LORazepam 0.5 MG Tab PO PRN (20:18)
[2017-02-26] MEDS ORDERED: Docusate Sodium 100 MG Cap PO PRN (20:18)
[2017-02-26] MEDS: Morphine 4 MG/ML Syringe IVPUSH PRN (20:43)
[2017-02-26] MEDS ORDERED: Amitriptyline 25 MG Tab PO SCH (21:00)
[2017-02-26] MEDS: levETIRAcetam 500 MG Tab PO SCH (21:14)
[2017-02-27] MEDS: Clindamycin HCl 150 MG Cap PO SCH ×2 (00:52→05:47)
[2017-02-27] MEDS: Gabapentin 300 MG Cap PO SCH ×3 (00:53→11:14)
[2017-02-27] MEDS: Morphine 4 MG/ML Syringe IVPUSH PRN ×2 (03:58→08:25)
[2017-02-27] MEDS: Colchicine 0.6 MG Tab PO SCH ×2 (05:33→13:54)
[2017-02-27] MEDS ORDERED: predniSONE 20 MG Tab PO SCH (08:00)
[2017-02-27] MEDS: levETIRAcetam 500 MG Tab PO SCH (08:17)
[2017-02-27] MEDS ORDERED: amLODIPine 5 MG Tab PO SCH (09:00)
[2017-02-27] MEDS ORDERED: Rosuvastatin 10 MG Tab PO SCH (09:00)
[2017-02-27] MEDS ORDERED: Lisinopril 10 MG Tab PO SCH (09:00)
--- NOTE | 2017-02-27 10:34 | CT ---
EXAM DATE: 02/26/17 PATIENT'S AGE: 56 Patient: LYUBOV REED Facility: [place], [place] Site . Site : 1960 Study: CT Head [id number]/21/2017 6:58:01 PM Ordering Physician: Mireya Lorenz Final Report: : INDICATION: RIGHT ARM PAIN x 3 DAYS, HX OF STROKE/ANEURYSM CT HEAD WITHOUT CONTRAST TECHNIQUE: Multiple axial CT images were performed through the head without intravenous contrast administration. COMPARISON: No previous studies are currently available for comparison. FINDINGS: There chronic postoperative changes of bilateral frontotemporal craniotomy. Aneurysm clips are seen in the regions of the middle cerebral artery trifurcations bilaterally. There is chronic encephalomalacia involving the anterior temporal lobes bilaterally. No acute intracranial hemorrhage is identified. No extra-axial collections are evident and there is no mass effect or midline shift. Ventricles are normal in size and configuration. Brain parenchyma shows unremarkable bill-white differentiation. No fractures are demonstrated. Included portions of the paranasal sinuses and mastoid air cells are normally aerated. IMPRESSION: 1. No acute intracranial abnormality identified. 2. Chronic postoperative changes of bilateral frontotemporal craniotomy and middle cerebral artery trifurcation aneurysm clipping. 3. 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 AALIYAH PANG MD [employer] Dictated by Landen Pang MD @ 02/26/2017 7:32:21 PM Dictated by: Landen Pang MD @ 02/26/2017 19:32:36 (Electronic Signature) Report Signed by Proxy. [facility] HOSPITALArianna
--- NOTE | 2017-02-27 10:35 | CR ---
EXAM DATE: 02/26/17 PATIENT'S AGE: 56 Patient: LYUBOV REED Facility: [place], [place] Site . Site : 1960 Study: XRay Chest [id number]/21/2017 7:05:44 PM Ordering Physician: Mireya Lorenz Final Report: Indication: Left arm numbness and tingling Technique: Chest 1 view Comparison: December 25, 2016. Findings/Impression: Cardiovascular and mediastinum: Stable cardiomediastinal silhouette. Lungs and pleural space: Lungs are clear. No sign of infiltrate or mass. No sign of pleural effusion. No pneumothorax. Bones and soft tissues: Levoscoliosis of the lower thoracic spine. Dictated by Serenity Reddy MD @ Feb 26 2017 7:39PM (Electronic Signature) Report Signed by Proxy. [facility]ITALArianna
[2017-02-27 12:28] VITALS: BP 121/72
--- NOTE | 2017-02-27 14:12 | US ---
EXAMINATION: Nonvascular ultrasound of the left breast HISTORY: Pain COMPARISON: None TECHNIQUE: Grayscale and color Doppler images obtained within the region of concern. FINDINGS: There is no abnormal mass or fluid collection noted. No abnormal color Doppler flow or ski n thickening. There is likely a trace edema noted within the region of concern. IMPRESSION: 1. Mild subcutaneous edema noted within the region of concern, otherwise no focal abnormality.
--- NOTE | 2017-02-27 15:09 | PCM.DCSUM1 ---
Discharge Summary - Hospital Course Brief History: she was admitted with gout of the left wrist. - Discharge Data Discharge Date: 02/27/17 Discharge Disposition: Home, Self-Care 01 Condition: Fair - Discharge Diagnosis/Problem(s) (1) Acute gout SNOMED Code(s): 48259093, 85885876 ICD Code: M10.9 - GOUT, UNSPECIFIED Status: Acute Current Visit: Yes Qualifiers: Gout site: wrist (2) History of intracranial aneurysm SNOMED Code(s): 728833737 ICD Code: Z86.79 - PERSONAL HISTORY OF OTHER DISEASES OF THE CIRCULATORY SYSTEM Status: Acute Current Visit: Yes - Patient Summary/Data Hospital Course: she was monitored over night. There was some concern over the fact that she had decreased application support intern left hand. However, this was thought secondary to goutof the left wrist. She improved clinically on colchicine. Her wrist ultrasound showed some soft tissue edema . She had no acute neurologic deficit noted during this hospitalization. - Discharge Plan Prescriptions/Med Rec: Colchicine [Colcrys] 0.6 mg PO TID PRN #12 tablet PRN Reason: Other Hydrocodone/Acetaminophen [[place] 5-325] 1 tab PO Q4H PRN #15 tablet PRN Reason: Pain Home Medications: Home Meds LORazepam 0.5 mg PO BID PRN 04/20/14 [History] Amitriptyline HCl 75 mg PO BEDTIME 12/25/16 [History] Gabapentin [Neurontin] 600 mg PO QID 12/25/16 [History] Lisinopril 30 mg PO DAILY 12/25/16 [History] Rosuvastatin [Crestor] 10 mg PO DAILY 12/25/16 [History] amLODIPine Besylate [Amlodipine Besylate] 10 mg PO DAILY 12/25/16 [History] levETIRAcetam [Keppra] 500 mg PO BID 12/25/16 [History] Colchicine [Colcrys] 0.6 mg PO TID PRN #12 tablet 02/27/17 [Rx] Hydrocodone/Acetaminophen [[place] 5-325] 1 tab PO Q4H PRN #15 tablet 02/27/17 [Rx ] Referrals: Renan Barnhart MD [Primary Care Provider] - 03/09/17 10:00 am - Patient Data Vitals - Most Recent: Last Vital Signs Temp 96.8 F 02/27/17 12:00 Pulse 86 02/27/17 12:00 Resp 20 02/27/17 12:00 BP 121/72 02/27/17 12:00 Pulse Ox 94 L 02/27/17 12:00 Weight - Most Recent: 85.275 kg I&O - Last 24 hours: Intake & Output 02/27/17 02/27/17 02/27/17 06:59 14:59 22:59 Intake Total 400 Output Total 1500 Balance -1100 Lab Results - Last 24 hrs: Laboratory Results - last 24 hr 02/27/17 02/27/17 02/27/17 Range/Units 05:00 05:00 05:00 WBC 6.95 (4.0-11.0) K/uL RBC 3.23 L (4.30-5.90) M/uL Hgb 10.0 L (12.0-16.0) g/dL Hct 30.0 L (36.0-46.0) % MCV 92.9 (80.0-98.0) fL MCH 31.0 (27.0-32.0) pg MCHC 33.3 (31.0-37.0) g/dL RDW Std Deviation 51.6 (28.0-62.0) fl RDW Coeff of Yessenia 15 (11.0-15.0) % Plt Count 232 (150-400) K/uL MPV 9.10 (7.40-12.00) fL Neut % (Auto) 51.2 (48.0-80.0) % Lymph % (Auto) 36.3 (16.0-40.0) % [place] % (Auto) 6.0 (0.0-15.0) % Eos % (Auto) 6.2 (0.0-7.0) % Baso % (Auto) 0.3 (0.0-1.5) % Neut # (Auto) 3.6 (1.4-5.7) K/uL Lymph # (Auto) 2.5 H (0.6-2.4) K/uL [place] # (Auto) 0.4 (0.0-0.8) K/uL Eos # (Auto) 0.4 (0.0-0.7) K/uL Baso # (Auto) 0.0 (0.0-0.1) K/uL Nucleated RBC % 0.0 /100WBC Nucleated RBCs # 0 K/uL ESR 76 H (0-29) mm/hr Uric Acid (2.1-6.2) mg/dL Magnesium 1.7 (1.5-2.3) mEq/L C-Reactive Protein (0.0-0.5) mg/dL 02/27/17 Range/Units 05:00 WBC (4.0-11.0) K/uL RBC (4.30-5.90) M/uL Hgb (12.0-16.0) g/dL Hct (36.0-46.0) % MCV (80.0-98.0) fL MCH (27.0-32.0) pg MCHC (31.0-37.0) g/dL RDW Std Deviation (28.0-62.0) fl RDW Coeff of Yessenia (11.0-15.0) % Plt Count (150-400) K/uL MPV (7.40-12.00) fL Neut % (Auto) (48.0-80.0) % Lymph % (Auto) (16.0-40.0) % [place] % (Auto) (0.0-15.0) % Eos % (Auto) (0.0-7.0) % Baso % (Auto) (0.0-1.5) % Neut # (Auto) (1.4-5.7) K/uL Lymph # (Auto) (0.6-2.4) K/uL [place] # (Auto) (0.0-0.8) K/uL Eos # (Auto) (0.0-0.7) K/uL Baso # (Auto) (0.0-0.1) K/uL Nucleated RBC % /100WBC Nucleated RBCs # K/uL ESR (0-29) mm/hr Uric Acid 4.2 (2.1-6.2) mg/dL Magnesium (1.5-2.3) mEq/L C-Reactive Protein 25.16 H (0.0-0.5) mg/dL Med Orders - Current: Current Medications Acetaminophen (Tylenol) 650 mg PO Q4H PRN PRN Reason: Pain (Mild 1-3)/fever Amitriptyline HCl (Elavil) 75 mg PO BEDTIME [facility] Last Admin: 02/26/17 21:12 Dose: 75 mg Amlodipine Besylate (Norvasc) 10 mg PO DAILY [facility] Last Admin: 02/27/17 08:20 Dose: 10 mg Bisacodyl (Dulcolax) 5 mg PO DAILY PRN PRN Reason: Constipation Colchicine (Colcrys) 0.6 mg PO TID [facility] Last Admin: 02/27/17 13:54 Dose: 0.6 mg Docusate Sodium (Colace) 100 mg PO BID PRN PRN Reason: Constipation Gabapentin (Neurontin) 600 mg PO QID [facility] Last Admin: 02/27/17 11:14 Dose: 600 mg Sodium Chloride (Normal Saline) 1,000 mls @ 125 mls/hr IV STAT [facility] Last Admin: 02/26/17 18:30 Dose: 125 mls/hr Levetiracetam (Keppra) 500 mg PO BID [facility] Last Admin: 02/27/17 08:17 Dose: 500 mg Lisinopril (Prinivil) 30 mg PO DAILY [facility] Last Admin: 02/27/17 08:19 Dose: 30 mg Lorazepam (Ativan) 0.5 mg PO BID PRN PRN Reason: Anxiety Morphine Sulfate (Morphine) 4 mg IVPUSH Q2H PRN PRN Reason: Pain (severe 7-10) Stop: 02/27/17 20:16 Last Admin: 02/27/17 08:25 Dose: 4 mg Ondansetron HCl (Zofran Odt) 4 mg PO Q4H PRN PRN Reason: nausea, able to take PO Prednisone (Prednisone) 40 mg PO WITHBREAKFAST [facility] Last Admin: 02/27/17 08:16 Dose: 40 mg Rosuvastatin Calcium (Crestor) 10 mg PO DAILY [facility] Last Admin: 02/27/17 08:17 Dose: 10 mg Sodium Chloride (Saline Flush) 10 ml FLUSH ASDIRECTED PRN PRN Reason: Keep Vein Open Last Admin: 02/26/17 18:52 Dose: 10 ml Sodium Chloride (Saline Flush) 2.5 ml FLUSH ASDIRECTED PRN PRN Reason: Keep Vein Open Last Admin: 02/26/17 18:52 Dose: 2.5 ml Temazepam (Restoril) 15 mg PO BEDTIME PRN PRN Reason: Sleep Discontinued Medications Clindamycin HCl (Cleocin) 300 mg PO QID [facility] Last Admin: 02/27/17 05:47 Dose: Not Given Colchicine (Colcrys) 0.6 mg PO TID [facility] Last Admin: 02/26/17 21:14 Dose: 0.6 mg Morphine Sulfate (Morphine) 2 mg IVPUSH ONETIME ONE Stop: 02/26/17 18:15 Last Admin: 02/26/17 18:34 Dose: 2 mg Ondansetron HCl (Zofran) 4 mg IVPUSH ONETIME ONE Stop: 02/26/17 18:15 Last Admin: 02/26/17 18:32 Dose: 4 mg *Q Meaningful Use (DIS) - VTE *Q VTE Criteria *Q: - Stroke *Q Stroke Criteria *Q: - AMI *Q AMI Criteria *Q:
== END 2017-02-27 15:45 | disposition home or self-care (01) ==
LOC: MW.ED 17:15 → MW.MS 19:14
PROVIDERS: ADMIT Family Medicine; ATTEND Family Medicine
DX: M10.9 Gout, unspecified (principal); I10 Essential (primary) hypertension; F41.9 Anxiety disorder, unspecified; F17.210 Nicotine dependence, cigarettes, uncomplicated; Z86.79 Personal history of other diseases of the circulatory system; Z88.0 Allergy status to penicillin; Z88.2 Allergy status to sulfonamides; Z79.899 Other long term (current) drug therapy; E78.00 Pure hypercholesterolemia, unspecified; Z90.49 Acquired absence of other specified parts of digestive tract; Z90.89 Acquired absence of other organs; Z98.890 Other specified postprocedural states
CPT/HCPCS: 36415; 70450; 71010; 76881; 80053; 83735; 84484; 84550; 85025; 85610; 85652; 86140; 93005; 96361; 96374; 96375; 96376; 99285; A9270; G0378; J2270; J2405; J7040; 99283

== ENCOUNTER 2017-09-05 16:20 | Emergency (ER) | payer OTHER, MEDICAID ==
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
[2017-09-05 16:59] VITALS: BP 172/98
[2017-09-05] MEDS ORDERED: Ketorolac 60 MG/2 ML SDV IM ONE (18:13)
[2017-09-05 18:17] LABS: CHLORIDE,CL 105 mmol/L (98-107); SODIUM,NA 141 mmol/L (136-145)
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
== END 2017-09-05 18:40 | disposition home or self-care (01) ==
LOC: MW.ED 16:20
DX: S16.1XXA Strain of muscle, fascia and tendon at neck level, initial encounter (principal); E78.00 Pure hypercholesterolemia, unspecified; I10 Essential (primary) hypertension; F17.210 Nicotine dependence, cigarettes, uncomplicated; Z88.0 Allergy status to penicillin; Z88.2 Allergy status to sulfonamides; Z79.899 Other long term (current) drug therapy; V49.49XA Driver injured in collision with other motor vehicles in traffic accident, initial encounter
CPT/HCPCS: 36415; 70450; 71045; 72100; 72125; 80053; 81001; 85025; 96372; 99284; J1885; J2360

== ENCOUNTER 2019-09-23 15:18 | Emergency (ER) | payer SELFPAY ==
--- NOTE | 2019-09-23 16:24 | EDM.PDOC ---
ED HPI GENERAL MEDICAL PROBLEM - General Chief Complaint: Respiratory Problem Stated Complaint: SOB AND COUGH Time Seen by Provider: 09/23/19 15:35 Source of Information: Reports: Patient History Limitations: Reports: No Limitations - History of Present Illness INITIAL COMMENTS - FREE TEXT/NARRATIVE: HISTORY AND PHYSICAL: History of present illness: Patient is a 59-year-old female presents to the ED with complaint of cough and shortness of breath x 3 weeks. Patient states she had a telemedicine appointment from provider in [place] and was told to come to the ED For COVID-19 testing. Patient reports subjective fevers at the beginning of the illness which have since subsided. She denies chest pain, nausea, vomiting, diarrhea, abdominal pain. She denies recent travel or known sick contacts. Review of systems: As per history of present illness and below otherwise all systems reviewed and negative. Past medical history: As per history of present illness and as reviewed below otherwise noncontributory. Surgical history: As per history of present illness and as reviewed below otherwise noncontributory. Social history: No reported history of drug or alcohol abuse. Family history: As per history of present illness and as reviewed below otherwise noncontributory. Physical exam: General: Patient sitting comfortably in no acute distress and nontoxic appearing. Very anxious appearing HEENT: Atraumatic, normocephalic, pupils reactive, negative for conjunctival pallor or scleral icterus, mucous membranes moist, throat clear, neck supple, nontender, trachea midline. No meningeal signs. Lungs: Clear to auscultation, breath sounds equal bilaterally, chest nontender. Heart: S1S2, regular, negative for clicks, rubs, or overt murmur. Abdomen: Soft, nondistended, nontender. Negative for masses or hepatosplenomegaly. Negative for costovertebral tenderness. No rigidity, rebound , guarding. Pelvis: Stable nontender. Genitourinary: Deferred. Rectal: Deferred. Extremities: Atraumatic, negative for cords or calf pain. Neurovascular unremarkable. Neuro: Awake, alert, oriented. Cranial nerves II through XII unremarkable. Cerebellum unremarkable. Motor and sensory unremarkable throughout. Exam nonfocal. Notes: Patient hyperventilating after examination and had to talk her in to calming down. She is very anxious and this is likely the cause of her elevated heart rate. She otherwise is nontoxic appearing and no acute respiratory distress. Oxygen saturation is normal. Due to patients respiratory symptoms and negative influenza, I did order a COVID -19. Patient understands to quarantine self until she receives these results. Diagnostics: Influenza, [employer]R [employer]: none Prescriptions: Ventolin inhaler Impression: Cough, shortness of breath Plan: Please quarantine yourself at home until you receive the results of your testing in approximately 48 hours. Use inhaler as needed for cough and shortness of breath Follow up with primary care provider Return to ED As needed as discussed Definitive disposition and diagnosis as appropriate pending reevaluation and review of above. neck and shoulder Pain Score (Numeric/FACES): 5 - Related Data Allergies Allergy/AdvReac Type Severity Reaction Status Date / Time ibuprofen Allergy Other Verified 09/23/19 15:35 Penicillins Allergy Cannot Verified 02/26/17 17:38 Remember Sulfa (Sulfonamide Allergy Nausea and Verified 02/26/17 17:38 Antibiotics) Vomiting Home Meds: Home Meds LORazepam 0.5 mg PO BID PRN 04/20/14 [History] Amitriptyline HCl 75 mg PO BEDTIME 12/25/16 [History] Gabapentin [Neurontin] 600 mg PO QID 12/25/16 [History] Lisinopril 30 mg PO DAILY 12/25/16 [History] Rosuvastatin [Crestor] 10 mg PO DAILY 12/25/16 [History] amLODIPine Besylate [Amlodipine Besylate] 10 mg PO DAILY 12/25/16 [History] levETIRAcetam [Keppra] 500 mg PO BID 12/25/16 [History] Colchicine [Colcrys] 0.6 mg PO TID PRN #12 tablet 02/27/17 [Rx] Hydrocodone/Acetaminophen [[place] 5-325] 1 tab PO Q4H PRN #15 tablet 02/27/17 [Rx ] Albuterol [Ventolin HFA] 1 puff INH Q4H #1 inhaler 09/23/19 [Rx] Past Medical History - Past Health History Medical/Surgical History: Denies Medical/Surgical History HEENT History: Reports: None Cardiovascular History: Reports: Aneurysm, High Cholesterol, Hypertension Respiratory History: Reports: Intubation, Previous Gastrointestinal History: Reports: Cholelithiasis Genitourinary History: Reports: Other (See Below) Other Genitourinary History: only one kidney functioning 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: Musculoskeletal History: Reports: None Neurological History: Reports: Cerebral Aneurysms, CVA Psychiatric History: Reports: Anxiety Endocrine/Metabolic History: Reports: None Hematologic History: Reports: None Immunologic History: Reports: None Oncologic (Cancer) History: Reports: None Dermatologic History: Reports: None - Infectious Disease History Infectious Disease History: Reports: Chicken Pox, Measles - Past Surgical History Head Surgeries/Procedures: Reports: Craniotomy HEENT Surgical History: Reports: Tonsillectomy Cardiovascular Surgical History: Reports: Aneurysm Respiratory Surgical History: Reports: Tracheostomy GI Surgical History: Reports: Appendectomy, Cholecystectomy Other GI Surgeries/Procedures: peg tube Female Surgical History: Reports: Section Neurological Surgical History: Reports: None Musculoskeletal Surgical History: Reports: Arthroscopic Knee, ORIF, Other (See Below) Other Musculoskeletal Surgeries/Procedures:: left ankle Social & Family History - Family History Family Medical History: Noncontributory HEENT: Reports: None Cardiac: Reports: Heart Valve Replacement, [place] Respiratory: Reports: None GI: Reports: None : Reports: None Musculoskeletal: Reports: Arthritis Neurological: Reports: None Psychiatric: Reports: None Endocrine/Metabolic: Reports: Diabetes, type II Hematologic: Reports: B12 Deficiency Immunologic: Reports: None Dermatologic: Reports: None Oncologic: Reports: Hodgkin's Lymphoma, Other (See Below) Other Oncologic Family History: throat - Tobacco Use Smoking Status *Q: Current Every Day Smoker Years of Tobacco use: 40 Packs/Tins Daily: 0.5 - Caffeine Use Caffeine Use: Reports: None Caffeine Use Comment: 1cup/day - Recreational Drug Use Recreational Drug Use: No ED ROS GENERAL - Review of Systems Review Of Systems: Comprehensive ROS is negative, except as noted in HPI. ED EXAM, GENERAL - Physical Exam Exam: See Below (see dictation) Course - Vital Signs Last Recorded V/S: Last Vital Signs Temp 97.4 F 09/23/19 15:32 Pulse 110 H 09/23/19 15:32 Resp 20 09/23/19 15:32 BP 143/100 H 09/23/19 15:32 Pulse Ox 95 09/23/19 15:32 - Orders/Labs/Meds Orders: Active Orders 24 hr Category Date Time Status CORONAVIRUS (COVID-19) PCR [MREF] Stat Lab 09/23/19 18:01 Ordered Isolation [COMM] Routine Oth 09/23/19 16:02 Active Departure - Departure Time of Disposition: 18:24 Disposition: Home, Self-Care 01 Condition: Good Clinical Impression: Cough, Shortness of breath - Discharge Information Prescriptions: Albuterol [Ventolin HFA] 1 puff INH Q4H #1 inhaler Instructions: Shortness of Breath, Adult, [id number], Cough, Adult, Easy-to- Read Referrals: PCP,Not In Area [Primary Care Provider] - Forms: ED Department Discharge Additional Instructions: The following information is given to patients seen in the emergency department who are being discharged to home. This information is to outline your options for follow-up care. We provide all patients seen in our emergency department with a follow-up referral. The need for follow-up, as well as the timing and circumstances, are variable depending upon the specifics of your emergency department visit. If you don't have a primary care physician on staff, we will provide you with a referral. We always advise you to contact your personal physician following an emergency department visit to inform them of the circumstance of the visit and for follow-up with them and/or the need for any referrals to a consulting specialist. The emergency department will also refer you to a specialist when appropriate. This referral assures that you have the opportunity for follow-up care with a specialist. All of these measure are taken in an effort to provide you with optimal care, which includes your follow-up. Under all circumstances we always encourage you to contact your private physician who remains a resource for coordinating your care. When calling for follow-up care, please make the office aware that this follow-up is from your recent emergency room visit. If for any reason you are refused follow-up, please contact the [facility] Emergency Department at and asked to speak to the emergency department charge nurse. [facility] [address] [place] [id number] [facility] [address] [place] [id number] Please quarantine yourself at home until you receive the results of your testing in approximately 48 hours. Use inhaler as needed for cough and shortness of breath Follow up with primary care provider Return to ED As needed as discussed Sepsis Event Note - Evaluation Sepsis Screening Result: No Definite Risk - Focused Exam Vital Signs: Vital Signs Temp Pulse Resp BP Pulse Ox 09/23/19 15:32 97.4 F 110 H 20 143/100 H 95 Date Exam was Performed: 09/23/19 Time Exam was Performed: 18:28 - My Orders Last 24 Hours: My Active Orders 09/23/19 16:02 Isolation [COMM] Routine 09/23/19 18:01 CORONAVIRUS (COVID-19) PCR [MREF] Stat - Assessment/Plan Last 24 Hours: My Active Orders 09/23/19 16:02 Isolation [COMM] Routine 09/23/19 18:01 CORONAVIRUS (COVID-19) PCR [MREF] Stat
--- NOTE | 2019-09-23 17:40 | CR ---
Chest: Portable view of the chest was obtained. Comparison: Prior chest x-ray of 09/05/17. Heart size is within normal limits for portable technique. Tortuous thoracic aorta is seen. Lungs are clear with no acute parenchymal change. Scoliosis is noted within the spine. No acute osseous finding is seen. Impression: 1. Nothing acute is seen on portable chest x-ray. Diagnostic code #2 Study was dictated in MDT
[2019-09-23 19:09] VITALS: BP 151/94; PULSE 87
== END 2019-09-23 18:35 | disposition home or self-care (01) ==
LOC: MW.ED 15:18
DX: R06.02 Shortness of breath (principal); R05 Cough; F17.210 Nicotine dependence, cigarettes, uncomplicated; I10 Essential (primary) hypertension; E78.00 Pure hypercholesterolemia, unspecified; F41.9 Anxiety disorder, unspecified; Z86.73 Personal history of transient ischemic attack (TIA), and cerebral infarction without residual deficits; Z79.899 Other long term (current) drug therapy; Z88.6 Allergy status to analgesic agent; Z88.0 Allergy status to penicillin; Z88.2 Allergy status to sulfonamides
CPT/HCPCS: 71045; 71045-26; 87804; 99285-25; U0001

== ENCOUNTER 2021-01-05 13:17 | Emergency (ER) | payer SELFPAY ==
[2021-01-05] MEDS ORDERED: Sodium Chloride 0.9% 1,000 ML IV ONE (13:37)
--- NOTE | 2021-01-05 14:11 | CR ---
INDICATION: Chest pain TECHNIQUE: Chest 1 views COMPARISON: 06/11/2020 FINDINGS: Cardiovascular and mediastinum: Heart size and vasculature are normal in caliber and appearance. Lungs and pleural spaces: Lungs are clear. No sign of infiltrate or mass. No sign of pleural effusion. No pneumothorax. Bones and soft tissues: No significant findings. IMPRESSION: No acute findings and no significant changes from the prior exam. Dictated by Danny Parra MD @ 01/05/2021 2:08:[address] Danny Parra @ Jan 05 2021 2:08PM
--- NOTE | 2021-01-05 14:23 | EDM.PDOC ---
ED HPI GENERAL MEDICAL PROBLEM - General Chief Complaint: Cardiovascular Problem Stated Complaint: FEVER TIGHT CHEST Time Seen by Provider: 01/05/21 13:18 Source of Information: Reports: Patient History Limitations: Reports: No Limitations - History of Present Illness INITIAL COMMENTS - FREE TEXT/NARRATIVE: HISTORY AND PHYSICAL: History of present illness: Patient is a 60-year-old female who presents to the emergency room with complaints of shortness of breath, cough, dizziness, fatigue and intermittent bouts of diarrhea over the past 1 week. She states that her and her have had similar symptoms over the past week and have not felt improved. Her was seen at the walk-in clinic and given a prescription of doxycycline, states she has taken a few of his tablets to see if it helped. Patient denies any fever, chills, headache, change in vision, syncope or near syncope. Denies any chest pain, back pain, abdominal pain, nausea, vomiting, constipation or d ysuria. Has not noted any blood in urine or stool. Patient has been eating and drinking appropriately, although less than normal. She is concerned she may be dehydrated. States she only has one functioning kidney and believes she could benefit from IV fluids. Review of systems: As per history of present illness and below otherwise all systems reviewed and negative. Past medical history: As per history of present illness and as reviewed below otherwise noncontributory. Surgical history: As per history of present illness and as reviewed below otherwise noncontributory. Social history: See social history for further information Family history: As per history of present illness and as reviewed below otherwise noncontributory. Physical exam: General: Well developed and well nourished. Alert and orientated x 3. Nontoxic in appearance and in no acute distress. Vital signs are stable and have been reviewed by me. Nursing notes were reviewed. HEENT: Atraumatic, normocephalic, pupils equal and reactive bilaterally, negative for conjunctival pallor or scleral icterus, mucous membranes moist, TMs normal bilaterally, throat clear, neck supple, nontender, trachea midline. No drooling or trismus noted. No meningeal signs. No hot potato voice noted. Lungs: Clear to auscultation bilaterally. No wheezes, rales, or rhonchi. Chest nontender. Normal work of breathing, no accessory muscles used. Heart: S1S2, regular rate and rhythm without overt murmur, gallops, or rubs. No JVD. No peripheral edema Abdomen: Soft, nondistended, nontender. Normoactive bowel sounds. Negative for masses or costovertebral tenderness. Skin: Intact, warm, dry. No lesions or rashes noted. Hematologic: No petechiae or purpra. Mucosa appropriate color and normal nail bed color and refill. Extremities: Atraumatic, moves all extremities per self without difficulty or deficits, negative for cords or calf pain. Neurovascular unremarkable. Neuro: Awake, alert, oriented. Cranial nerves II through XII unremarkable. Cerebellum unremarkable. Motor and sensory unremarkable throughout. Exam nonfocal. Psychiatric: Mood and affect are appropriate. Normal thought process. Answering questions appropriately. Notes: *This patient was seen and evaluated during the 2019 SARS-CoV-2 novel coronavirus pandemic period. Community viral transmission is ongoing at time of this encounter and the emergency department is operating under pandemic response procedures. Chest x-ray shows no acute findings and no changes from prior exam. I have talked with the patient about today's findings, in addition to providing specific details for plan of care. Reassessment at the time of disposition demonstrates that the patient is in no acute distress. The patient is stable for discharge, counseling was provided and we discussed in great detail signs and symptoms that would prompt them to return to the Emergency Department. Medication, follow up and supportive care measures were reviewed and discussed. Voices understanding and is agreeable to plan of care. Denies any further questions or concerns at this time. Diagnostics: CBC, CMP, COVID, CXR Therapeutics: IV fluids Prescription: Zpak, Prednisone Impression: Bronchitis Plan: 1. You were evaluated today on an emergent basis. Your lab work and chest x-ray are normal. Will treat you for bronchitis. 2. You can alternate Tylenol and ibuprofen as needed for pain and fever management. 3. We encourage you to follow up with your primary care provider and/or recommended specialist in the next few days for re-evaluation and further care/management. 4. If your symptoms should worsen, new symptoms develop or any of the signs and symptoms we discussed should arise please return to the emergency room or call 911 (if needed). Definitive disposition and diagnosis as appropriate pending reevaluation and review of above. - Related Data Allergies Allergy/AdvReac Type Severity Reaction Status Date / Time ibuprofen Allergy Other Verified 01/05/21 13:47 Penicillins Allergy Cannot Verified 01/05/21 13:47 Remember Sulfa (Sulfonamide Allergy Nausea and Verified 01/05/21 13:47 Antibiotics) Vomiting Home Meds: Home Meds LORazepam 0.5 mg PO BID PRN 04/20/14 [History] Amitriptyline HCl 75 mg PO BEDTIME 12/25/16 [History] Gabapentin [Neurontin] 600 mg PO QID 12/25/16 [History] Lisinopril 30 mg PO DAILY 12/25/16 [History] Rosuvastatin [Crestor] 10 mg PO DAILY 12/25/16 [History] amLODIPine Besylate [Amlodipine Besylate] 10 mg PO DAILY 12/25/16 [History] levETIRAcetam [Keppra] 500 mg PO BID 12/25/16 [History] Colchicine [Colcrys] 0.6 mg PO TID PRN #12 tablet 02/27/17 [Rx] Hydrocodone/Acetaminophen [[place] 5-325] 1 tab PO Q4H PRN #15 tablet 02/27/17 [Rx] Albuterol [Ventolin HFA] 1 puff INH Q4H #1 inhaler 09/23/19 [Rx] Azithromycin [Zithromax] 1 dose PO DAILY 5 Days #6 tab 01/05/21 [Rx] predniSONE [Prednisone] 40 mg PO DAILY 5 Days #10 tablet 01/05/21 [Rx] Past Medical History - Past Health History Medical/Surgical History: Denies Medical/Surgical History HEENT History: Reports: None Cardiovascular History: Reports: Aneurysm, High Cholesterol, Hypertension Respiratory History: Reports: Intubation, Previous Gastrointestinal History: Reports: Cholelithiasis Genitourinary History: Reports: Other (See Below) Other Genitourinary History: only one kidney functioning COLLATERAL SPECIALIST History: Reports: Musculoskeletal History: Reports: None Neurological History: Reports: Cerebral Aneurysms, CVA Psychiatric History: Reports: Anxiety Endocrine/Metabolic History: Reports: None Hematologic History: Reports: None Immunologic History: Reports: None Oncologic (Cancer) History: Reports: None Dermatologic History: Reports: None - Infectious Disease History Infectious Disease History: Reports: Chicken Pox, Measles - Past Surgical History Head Surgeries/Procedures: Reports: Craniotomy HEENT Surgical History: Reports: Tonsillectomy Cardiovascular Surgical History: Reports: Aneurysm Other Cardiovascular Surgeries/Procedures: left side blood clot in brain that ruptured. took 2nd clot out of right side later. Respiratory Surgical History: Reports: Tracheostomy GI Surgical History: Reports: Appendectomy, Cholecystectomy Other GI Surgeries/Procedures: hx of peg tube no longer has Female Surgical History: Reports: Section Neurological Surgical History: Reports: None Other Neurological Surgeries/Procedures: aneurysm clips Musculoskeletal Surgical History: Reports: Arthroscopic Knee, ORIF, Other (See Below) Other Musculoskeletal Surgeries/Procedures:: left ankle Social & Family History - Family History Family Medical History: No Pertinent Family History HEENT: Reports: None Cardiac: Reports: Heart Valve Replacement, [place] Respiratory: Reports: None GI: Reports: None : Reports: None Musculoskeletal: Reports: Arthritis Neurological: Reports: None Psychiatric: Reports: None Endocrine/Metabolic: Reports: Diabetes, type II Hematologic: Reports: B12 Deficiency Immunologic: Reports: None Dermatologic: Reports: None Oncologic: Reports: Hodgkin's Lymphoma, Other (See Below) Other Oncologic Family History: throat - Caffeine Use Caffeine Use: Reports: None Caffeine Use Comment: 1cup/day - Recreational Drug Use Recreational Drug Use: No ED ROS GENERAL - Review of Systems Review Of Systems: Comprehensive ROS is negative, except as noted in HPI. ED EXAM, GENERAL - Physical Exam Exam: See Below (See dictation) Course - Vital Signs Last Recorded V/S: Last Vital Signs Temp 96.3 F L 01/05/21 13:45 Pulse 78 01/05/21 15:46 Resp 16 01/05/21 15:46 BP 136/84 01/05/21 15:46 Pulse Ox 98 01/05/21 15:46 - Orders/Labs/Meds Labs: Laboratory Tests 01/05/21 01/05/21 01/05/21 Range/Units 13:55 13:55 14:08 WBC 10.05 (4.0-11.0) K/uL RBC 4.58 (4.30-5.90) M/uL Hgb 14.6 (12.0-16.0) g/dL Hct 42.5 (36.0-46.0) % MCV 92.8 (80.0-98.0) fL MCH 31.9 (27.0-32.0) pg MCHC 34.4 (31.0-37.0) g/dL RDW Std Deviation 49.5 (28.0-62.0) fl RDW Coeff of Yessenia 15 (11.0-15.0) % Plt Count 311 (150-400) K/uL MPV 9.60 (7.40-12.00) fL Neut % (Auto) 57.5 (48.0-80.0) % Lymph % (Auto) 34.3 (16.0-40.0) % [place] % (Auto) 6.4 (0.0-15.0) % Eos % (Auto) 1.4 (0.0-7.0) % Baso % (Auto) 0.4 (0.0-1.5) % Neut # (Auto) 5.8 H (1.4-5.7) K/uL Lymph # (Auto) 3.5 H (0.6-2.4) K/uL [place] # (Auto) 0.6 (0.0-0.8) K/uL Eos # (Auto) 0.1 (0.0-0.7) K/uL Baso # (Auto) 0.0 (0.0-0.1) K/uL Nucleated RBC % 0.0 /100WBC Nucleated RBCs # 0 K/uL Sodium 137 (136-145) mmol/L Potassium 3.8 (3.5-5.1) mmol/L Chloride 101 (98-107) mmol/L Carbon Dioxide 24.6 (21.0-32.0) mmol/L BUN 18 (7.0-18.0) mg/dL Creatinine 1.5 H (0.6-1.0) mg/dL Est Cr Clr Drug Dosing 40.64 mL/min Estimated GFR (MDRD) 35.2 ml/min Glucose 100 (74-106) mg/dL Calcium 9.1 (8.5-10.1) mg/dL Total Bilirubin 0.4 (0.2-1.0) mg/dL AST 34 (15-37) IU/L ALT 36 (14-63) IU/L Alkaline Phosphatase 85 (46-116) U/L Total Protein 8.3 H (6.4-8.2) g/dL Albumin 3.6 (3.4-5.0) g/dL Globulin 4.7 H (2.6-4.0) g/dL Albumin/Globulin Ratio 0.8 L (0.9-1.6) Influenza Type A RNA NEGATIVE (NEGATIVE) Influenza Type B RNA NEGATIVE (NEGATIVE) SARS-CoV-2 RNA (KLAUS) NEGATIVE (NEGATIVE) Meds: Medications Discontinued Medications Generic Name Dose Route Start Last Admin Trade Name Ole PRN Reason Stop Dose Admin Sodium Chloride 1,000 mls @ 999 mls/hr 01/05/21 13:37 01/05/21 13:47 Normal Saline IV 01/05/21 14:37 999 mls/hr STAT ONE Administration Departure - Departure Time of Disposition: 15:39 Disposition: Home, Self-Care 01 Clinical Impression: Bronchitis Prescriptions: predniSONE [Prednisone] 40 mg PO DAILY 5 Days #10 tablet Azithromycin [Zithromax] 1 dose PO DAILY 5 Days #6 tab Instructions: Acute Bronchitis, Adult, [id number] Referrals: Angelito Mitchell MD [Primary Care Provider] - Forms: ED Department Discharge Additional Instructions: The following information is given to patients seen in the emergency department who are being discharged to home. This information is to outline your options for follow-up care. We provide all patients seen in our emergency department with a follow-up referral. The need for follow-up, as well as the timing and circumstances, are variable depending upon the specifics of your emergency department visit. If you don't have a primary care physician on staff, we will provide you with a referral. We always advise you to contact your personal physician following an emergency department visit to inform them of the circumstance of the visit and for follow-up with them and/or the need for any referrals to a consulting specialist. The emergency department will also refer you to a specialist when appropriate. This referral assures that you have the opportunity for follow-up care with a specialist. All of these measure are taken in an effort to provide you with optimal care, which includes your follow-up. Under all circumstances we always encourage you to contact your private physician who remains a resource for coordinating your care. When calling for follow-up care, please make the office aware that this follow-up is from your recent emergency room visit. If for any reason you are refused follow-up, please contact the [facility] Emergency Department at and asked to speak to the emergency department charge nurse. [facility] [address] [place], [place] [address], [place] [address] [facility] [address] [place] [address] Thank you for choosing the [facility] emergency department in [place] for your medical needs today. It was a pleasure caring for you. Today you were seen in the emergency department for respiratory symptoms. 1. You were evaluated today on an emergent basis. Your lab work and chest x-ray are normal. Will treat you for bronchitis. 2. You can alternate Tylenol and ibuprofen as needed for pain and fever management. 3. We encourage you to follow up with your primary care provider and/or recommended specialist in the next few days for re-evaluation and further care/management. 4. If your symptoms should worsen, new symptoms develop or any of the signs and symptoms we discussed should arise please return to the emergency room or call 911 (if needed). Sepsis Event Note (ED) - Evaluation Sepsis Screening Result: No Definite Risk - Focused Exam Vital Signs: Vital Signs Temp Pulse Resp BP Pulse Ox 01/05/21 15:46 78 16 136/84 98 01/05/21 13:45 96.3 F L 97 134/77 94 L
[2021-01-05 14:25] LABS: CARBON DIOXIDE,CO2 24.6 mmol/L (21.0-32.0); POTASSIUM,K 3.8 mmol/L (3.5-5.1)
[2021-01-05 15:07] LABS: CORONAVIRUS COVID-19 NAA NEGATIVE (NEGATIVE); INFLUENZA A NAA NEGATIVE (NEGATIVE); INFLUENZA B NAA NEGATIVE (NEGATIVE)
[2021-01-05 15:46] VITALS: BP 136/84; PULSE 78
--- NOTE | 2021-01-05 17:42 | PCM.EKG ---
#1 Interpretation EKG Interpretation Comments: EKG: As interpreted by ER physician: Asha: Nonspecific ST-T wave abnormalities Normal axis No evidence of ST elevation CA Normal sinus rhythm heart rate of 87
== END 2021-01-05 15:55 | disposition home or self-care (01) ==
LOC: MW.ED 13:17
DX: J40 Bronchitis, not specified as acute or chronic (principal); E78.00 Pure hypercholesterolemia, unspecified; I10 Essential (primary) hypertension; Z88.0 Allergy status to penicillin; Z88.2 Allergy status to sulfonamides; Z88.8 Allergy status to other drugs, medicaments and biological substances; Z20.822 Contact with and (suspected) exposure to COVID-19
CPT/HCPCS: 0240U; 71045; 80053; 85025; 93005; 99285; J7030; 99283

== ENCOUNTER 2021-11-25 20:50 | Emergency (ER) | payer SELFPAY ==
[2021-11-26 00:29] LABS: CARBON DIOXIDE,CO2 28.8 mmol/L (21.0-32.0)
[2021-11-26 01:43] VITALS: BP 147/80; PULSE 85
== END 2021-11-26 01:43 | disposition home or self-care (01) ==
LOC: MW.ED 20:50
DX: R14.0 Abdominal distension (gaseous) (principal); R21 Rash and other nonspecific skin eruption; E78.00 Pure hypercholesterolemia, unspecified; I10 Essential (primary) hypertension; Z86.73 Personal history of transient ischemic attack (TIA), and cerebral infarction without residual deficits; Z79.899 Other long term (current) drug therapy; Z88.0 Allergy status to penicillin; Z88.2 Allergy status to sulfonamides; Z88.6 Allergy status to analgesic agent
CPT/HCPCS: 36415; 74176; 74176-26; 80053; 81001; 83605; 83690; 85025; 99283; 99284-25

== ENCOUNTER 2022-03-06 12:04 | Emergency (ER) | payer SELFPAY ==
[2022-03-06] MEDS ORDERED: Acetaminophen/oxyCODONE 325-5 MG Tab PO ONE (14:50)
[2022-03-06] MEDS ORDERED: methylPREDNISolone Sodium Succinate 125 MG/2 ML SDV IVPUSH ONE (14:50)
[2022-03-06 16:42] VITALS: PULSE 81
[2022-03-06 19:22] VITALS: BP 174/87
== END 2022-03-06 17:26 | disposition home or self-care (01) ==
LOC: MW.ED 12:04
DX: M54.42 Lumbago with sciatica, left side (principal); E78.00 Pure hypercholesterolemia, unspecified; I10 Essential (primary) hypertension; Z86.73 Personal history of transient ischemic attack (TIA), and cerebral infarction without residual deficits; Z88.0 Allergy status to penicillin; Z88.2 Allergy status to sulfonamides; Z88.8 Allergy status to other drugs, medicaments and biological substances
CPT/HCPCS: 72131; 81001; 87086; 96374; 99284; A9270; J3360; 99283

== ENCOUNTER 2022-06-14 06:55 | Inpatient (IN) | payer SELFPAY ==
[~2022-06-14 06:55] MED LIST: Famotidine 20 MG/2 ML SDV IVPUSH SCH; Scopolamine 1.5 MG Transdermal Patch TRDERM SCH
[2022-06-14] MEDS ORDERED: Tranexamic Acid 1,000 MG in Sodium Chloride 0.9% 100 ML IV ONE (07:00)
[2022-06-14] MEDS ORDERED: Ropivacaine 49.25 ML, Ketorolac 30 MG, EPINEPHrine 0.5 MG, cloNIDine 80 MCG in Sodium C... INJECT SCH (07:00)
[2022-06-14] MEDS ORDERED: ceFAZolin 2 GM in Premix Bag 1 BAG IV SCH (08:00)
[2022-06-14] MEDS: Lactated Ringers 1,000 ML IV SCH ×2 (09:45→16:27)
[2022-06-14] MEDS ORDERED: Naloxone 0.4 MG/ML SDV IVPUSH PRN (09:51)
[2022-06-14] MEDS ORDERED: HYDROmorphone 1 MG/ML Syringe IVPUSH PRN (09:51)
[2022-06-14] MEDS ORDERED: Metoclopramide 10 MG/2 ML SDV IVPUSH PRN (09:51)
[2022-06-14] MEDS ORDERED: fentaNYL 50 MCG/ML SDV IVPUSH PRN (09:51)
[2022-06-14] MEDS ORDERED: Morphine 2 MG/ML SYRINGE IVPUSH PRN (09:51)
[2022-06-14] MEDS ORDERED: Albuterol 0.083% 2.5 MG/3 ML Neb Soln NEB PRN (09:51)
[2022-06-14] MEDS ORDERED: Ondansetron 4 MG/2 ML SDV IVPUSH PRN ×2 (09:51→15:12)
[2022-06-14] MEDS ORDERED: Dexmedetomidine 200 MCG/2 ML SDV ONE (11:11)
[2022-06-14] MEDS ORDERED: fentaNYL 100 MCG/2 ML SDV ONE (11:11)
[2022-06-14] MEDS ORDERED: Ondansetron 4 MG/2 ML SDV ONE (11:11)
[2022-06-14] MEDS ORDERED: Ropivacaine 0.5% 5 MG/ML 30 ML SDV ONE (11:19)
[2022-06-14] MEDS ORDERED: Tranexamic Acid 1,000 MG/10 ML Vial ONE (11:21)
[2022-06-14] MEDS ORDERED: ceFAZolin 2 GM Vial ONE (12:47)
[2022-06-14] MEDS ORDERED: ePHEDrine 50 MG/ML SDV ONE (13:06)
[2022-06-14] MEDS ORDERED: Phenylephrine 1% 10 MG/ML SDV ONE (13:23)
[2022-06-14] MEDS ORDERED: Propofol 200 MG/20 ML SDV ONE (14:22)
[2022-06-14] MEDS ORDERED: traMADol 50 MG Tab PO PRN (15:12)
[2022-06-14] MEDS ORDERED: diphenhydrAMINE 25 MG Cap PO PRN (15:12)
[2022-06-14] MEDS ORDERED: Sodium Chloride 0.9% 2.5 ML Syringe FLUSH PRN (15:12)
[2022-06-14] MEDS ORDERED: Bisacodyl 10 MG Supp RECTAL PRN (15:12)
[2022-06-14] MEDS ORDERED: Sodium Chloride 0.9% 10 ML Syringe FLUSH PRN (15:12)
[2022-06-14] MEDS: oxyCODONE 5 MG Tab PO PRN (18:45)
[2022-06-14] MEDS: Morphine 2 MG/ML SYRINGE IVPUSH PRN (19:37)
[2022-06-14] MEDS: Aspirin 325 MG Tab PO SCH (20:01)
[2022-06-14] MEDS: Docusate Sodium 100 MG Cap PO SCH (20:01)
[2022-06-14] MEDS: Acetaminophen 325 MG Tab PO SCH (20:01)
[2022-06-14] MEDS: Amitriptyline 25 MG Tab PO SCH (20:02)
[2022-06-14] MEDS: ceFAZolin 2 GM in Premix Bag 1 BAG IV SCH (20:06)
[2022-06-14] MEDS: Gabapentin 300 MG Cap PO SCH (21:10)
[2022-06-14] MEDS: traMADol 50 MG Tab PO PRN (21:10)
[2022-06-15] MEDS: oxyCODONE 5 MG Tab PO PRN ×3 (01:14→17:35)
[2022-06-15] MEDS: Acetaminophen 325 MG Tab PO SCH ×4 (03:59→21:46)
[2022-06-15] MEDS: ceFAZolin 2 GM in Premix Bag 1 BAG IV SCH (04:01)
[2022-06-15] MEDS: Gabapentin 300 MG Cap PO SCH ×3 (05:41→21:45)
[2022-06-15] MEDS: traMADol 50 MG Tab PO PRN (05:42)
[2022-06-15 06:42] LABS: CARBON DIOXIDE,CO2 28.5 mmol/L (21.0-32.0); POTASSIUM,K 3.9 mmol/L (3.5-5.1)
[2022-06-15] MEDS: Docusate Sodium 100 MG Cap PO SCH ×2 (10:08→21:45)
[2022-06-15] MEDS: Lisinopril 10 MG Tab PO SCH (10:09)
[2022-06-15] MEDS: amLODIPine 5 MG Tab PO SCH (10:09)
[2022-06-15] MEDS: Famotidine 20 MG Tab PO SCH (10:10)
[2022-06-15] MEDS: Rosuvastatin 10 MG Tab PO SCH (10:10)
[2022-06-15] MEDS: Polyethylene Glycol 3350 Powder 17 GM Packet PO SCH (10:10)
[2022-06-15] MEDS: Aspirin 325 MG Tab PO SCH (10:10)
[2022-06-15] MEDS: Morphine 2 MG/ML SYRINGE IVPUSH PRN (10:35)
[2022-06-15] MEDS: Amitriptyline 25 MG Tab PO SCH (21:46)
[2022-06-16] MEDS: Acetaminophen 325 MG Tab PO SCH ×3 (03:09→16:00)
[2022-06-16] MEDS: Gabapentin 300 MG Cap PO SCH ×2 (06:09→12:59)
[2022-06-16] MEDS: oxyCODONE 5 MG Tab PO PRN ×2 (08:11→12:59)
[2022-06-16] MEDS: Famotidine 20 MG Tab PO SCH (08:13)
[2022-06-16] MEDS: Rosuvastatin 10 MG Tab PO SCH (08:13)
[2022-06-16] MEDS: Docusate Sodium 100 MG Cap PO SCH (08:14)
[2022-06-16] MEDS: Polyethylene Glycol 3350 Powder 17 GM Packet PO SCH (08:14)
[2022-06-16] MEDS: amLODIPine 5 MG Tab PO SCH (08:20)
[2022-06-16] MEDS: Lisinopril 10 MG Tab PO SCH (08:21)
[2022-06-16 08:38] LABS: POTASSIUM,K 4.3 mmol/L (3.5-5.1)
[2022-06-16] MEDS ORDERED: Aspirin 325 MG Tab.EC PO SCH (09:00)
[2022-06-16 09:48] VITALS: BP 148/66; PULSE 96
== END 2022-06-16 16:05 | disposition home or self-care (01) | DRG 470 ==
LOC: MW.MS 09:00
PROVIDERS: ADMIT Orthopaedic Surgery; ATTEND Orthopaedic Surgery
PROC: 0SRB06Z Replacement of Left Hip Joint with Oxidized Zirconium on Polyethylene Synthetic Substitute, Open Approach (ICD-10-PCS; principal; 2022-06-14)
DX: M16.12 Unilateral primary osteoarthritis, left hip (principal); I12.9 Hypertensive chronic kidney disease with stage 1 through stage 4 chronic kidney disease, or unspecified chronic kidney disease; N18.30 Chronic kidney disease, stage 3 unspecified; J44.9 Chronic obstructive pulmonary disease, unspecified; K21.9 Gastro-esophageal reflux disease without esophagitis; E78.00 Pure hypercholesterolemia, unspecified; F17.200 Nicotine dependence, unspecified, uncomplicated; Z79.899 Other long term (current) drug therapy; Z90.5 Acquired absence of kidney; Z90.49 Acquired absence of other specified parts of digestive tract; Z88.0 Allergy status to penicillin; Z88.2 Allergy status to sulfonamides; Z86.718 Personal history of other venous thrombosis and embolism; Z79.01 Long term (current) use of anticoagulants; Z86.73 Personal history of transient ischemic attack (TIA), and cerebral infarction without residual deficits; Z88.6 Allergy status to analgesic agent; Z98.890 Other specified postprocedural states
CPT/HCPCS: 36415; 73501-26-LT; 73501-LT; 80048; 83735; 85014; 85018; 85025; 86850; 86900; 86901; 97110-GP; 97116-GP; 97161-GP; 97530-GP; A9270-GY; C1713; C1776; J0171; J0690; J0735; J1885; J2270; J2370; J2405; J2704; J2795; J3010; J3490; J7120

== ENCOUNTER 2024-03-14 19:45 | Emergency (ER) | payer MEDICARE, MEDICAID ==
[2024-03-14] MEDS: diphenhydrAMINE 50 MG/ML SDV IVPUSH ONE (20:22)
[2024-03-14] MEDS: Sodium Chloride 0.9% 10 ML Syringe FLUSH PRN (20:22)
[2024-03-14] MEDS: Sodium Chloride 0.9% 2.5 ML Syringe FLUSH PRN (20:22)
[2024-03-14 20:29] LABS: BASOPHILS ABSOLUTE AUTO 0.05 K/uL (0.00-0.20); BASOPHILS PERCENT AUTO 0.4 % (0.0-1.0); EOSINOPHILS ABSOLUTE AUTO 0.22 K/uL (0.00-0.45); EOSINOPHILS PERCENT AUTO 1.9 % (0.0-6.0); HEMATOCRIT 39.6 % (37.0-47.0); HEMOGLOBIN 13.3 g/dL (12.0-16.0); IMMATURE GRAN ABSOLUTE AUTO 0.05 K/uL (0.00-0.05); IMMATURE GRAN PERCENT AUTO 0.4 % (0.0-0.4); LYMPHOCYTES ABSOLUTE AUTO 2.99 K/uL (1.00-4.80); LYMPHOCYTES PERCENT AUTO 25.5 % (24.0-44.0); MEAN CORPUSCULAR HEMOGLOBIN 31.4 pg (28.0-32.0); MEAN CORPUSCULAR HGB CONC 33.6 g/dL (32.0-36.0); MEAN CORPUSCULAR VOLUME 93.6 fL (83.0-99.0); MEAN PLATELET VOLUME 9.4 fL (9.4-12.3); MONOCYTES ABSOLUTE AUTO 0.69 K/uL (0.00-0.80); MONOCYTES PERCENT AUTO 5.9 % (0.0-8.0); NEUTROPHILS ABSOLUTE AUTO 7.72 K/uL (1.80-7.70); NEUTROPHILS PERCENT AUTO 65.9 % (41.0-71.0); PLATELET COUNT,PLT 260 K/uL (150-400); RED BLOOD CELL COUNT 4.23 M/uL (4.10-5.30); WHITE BLOOD CELL COUNT,WBC 11.72 K/uL (3.9-11.3)
[2024-03-14 21:03] LABS: A/G RATIO 0.8 (0.9-1.6); ALBUMIN 3.5 g/dL (3.4-5.0); BILIRUBIN TOTAL 0.6 mg/dL (0.2-1.0); CALCIUM 9.3 mg/dL (8.5-10.1); CREATININE 1.1 mg/dL (0.6-1.0); EST CRCL DRUG DOSING (CG) 47.1 mL/min; POTASSIUM,K 3.8 mmol/L (3.5-5.1); PROTEIN TOTAL,TP 8.1 g/dL (6.4-8.2)
[2024-03-14 22:38] VITALS: BP 184/91; PULSE 77
== END 2024-03-14 23:57 | disposition home or self-care (01) ==
LOC: MW.ED 19:45
DX: T78.3XXA Angioneurotic edema, initial encounter (principal); I10 Essential (primary) hypertension; E78.00 Pure hypercholesterolemia, unspecified; Z88.0 Allergy status to penicillin; Z88.2 Allergy status to sulfonamides; Z88.8 Allergy status to other drugs, medicaments and biological substances; Z79.899 Other long term (current) drug therapy; Z90.49 Acquired absence of other specified parts of digestive tract; Z75.8 Other problems related to medical facilities and other health care; X58.XXXA Exposure to other specified factors, initial encounter
CPT/HCPCS: 36415; 80053; 85025; 96374; 99284; J1200; J3490

== ENCOUNTER 2024-03-16 13:57 | Emergency (ER) | payer MEDICARE, MEDICAID ==
[2024-03-16] MEDS ORDERED: Ciprofloxacin 0.3% Ophth Soln 2.5 ML Bottle EYELF STA (14:51)
[2024-03-16 15:01] VITALS: BP 162/79; PULSE 86
== END 2024-03-16 15:00 | disposition home or self-care (01) ==
LOC: MW.ED 13:57
DX: H10.9 Unspecified conjunctivitis (principal); I10 Essential (primary) hypertension; E78.00 Pure hypercholesterolemia, unspecified; Z86.16 Personal history of COVID-19; Z90.49 Acquired absence of other specified parts of digestive tract; Z87.891 Personal history of nicotine dependence; Z79.899 Other long term (current) drug therapy; Z88.0 Allergy status to penicillin; Z88.2 Allergy status to sulfonamides; Z88.6 Allergy status to analgesic agent; Z88.8 Allergy status to other drugs, medicaments and biological substances; Z75.8 Other problems related to medical facilities and other health care
CPT/HCPCS: 99283; A9270-GY